=== PATIENT | female | born 1955 | race Caucasian/White ===

== ENCOUNTER 2022-05-24 07:29 | Outpatient (REF) | payer OTHER, SELFPAY ==
--- NOTE | ~2022-05-24 | XR_ITS ---
EXAMINATION: XR BILATERAL KNEE AP STANDING. XR BILATERAL SUNRISE VIEWS CLINICAL INFORMATION: Pain in left knee COMPARISON: None TECHNIQUE: AP bilateral standing view of both knees and sunrise views of the bilateral knees were obtained. FINDINGS: Right knee: Mild medial compartment joint space narrowing. There is lateral greater than medial marginal osteophytosis from the tibia. There is a lobular sclerotic 1.7 cm lesion lateral to the right distal tibia. It is unclear if this arises from the cortex as would be expected for an exostosis. This could represent an intra-articular body. No fracture or dislocation seen. On the sunrise view, there is marked lateral subluxation of the patella with joint space narrowing and a [id number] appearance. Left knee: Moderate to severe medial compartment joint space narrowing. Medial greater than lateral marginal osteophytosis. Mild lateral patellar subluxation with lateral patellofemoral joint space narrowing and osteophytosis. No fracture or dislocation. XR/XR knee LT 1V IMPRESSION: Degenerative changes of the bilateral knees as described above.
--- NOTE | ~2022-05-24 | XR_ITS ---
EXAMINATION: XR BILATERAL KNEE AP STANDING. XR BILATERAL SUNRISE VIEWS CLINICAL INFORMATION: Pain in left knee COMPARISON: None TECHNIQUE: AP bilateral standing view of both knees and sunrise views of the bilateral knees were obtained. FINDINGS: Right knee: Mild medial compartment joint space narrowing. There is lateral greater than medial marginal osteophytosis from the tibia. There is a lobular sclerotic 1.7 cm lesion lateral to the right distal tibia. It is unclear if this arises from the cortex as would be expected for an exostosis. This could represent an intra-articular body. No fracture or dislocation seen. On the sunrise view, there is marked lateral subluxation of the patella with joint space narrowing and a [id number] appearance. Left knee: Moderate to severe medial compartment joint space narrowing. Medial greater than lateral marginal osteophytosis. Mild lateral patellar subluxation with lateral patellofemoral joint space narrowing and osteophytosis. No fracture or dislocation. XR/XR knee standing BI IMPRESSION: Degenerative changes of the bilateral knees as described above.
--- NOTE | ~2022-05-24 | XR_ITS ---
EXAMINATION: XR BILATERAL KNEE AP STANDING. XR BILATERAL SUNRISE VIEWS CLINICAL INFORMATION: Pain in left knee COMPARISON: None TECHNIQUE: AP bilateral standing view of both knees and sunrise views of the bilateral knees were obtained. FINDINGS: Right knee: Mild medial compartment joint space narrowing. There is lateral greater than medial marginal osteophytosis from the tibia. There is a lobular sclerotic 1.7 cm lesion lateral to the right distal tibia. It is unclear if this arises from the cortex as would be expected for an exostosis. This could represent an intra-articular body. No fracture or dislocation seen. On the sunrise view, there is marked lateral subluxation of the patella with joint space narrowing and a [id number] appearance. Left knee: Moderate to severe medial compartment joint space narrowing. Medial greater than lateral marginal osteophytosis. Mild lateral patellar subluxation with lateral patellofemoral joint space narrowing and osteophytosis. No fracture or dislocation. XR/XR knee RT 1V IMPRESSION: Degenerative changes of the bilateral knees as described above.
== END 2022-05-24 07:30 | disposition home or self-care (01) ==
LOC: HO.HOSX 07:29
PROVIDERS: Visit Provider Physician Assistant
DX: M17.0 Bilateral primary osteoarthritis of knee (principal)
CPT/HCPCS: 73560; 73565; 99202

== ENCOUNTER → 2022-07-25 10:07 | Outpatient (BNVA) | payer OTHER, SELFPAY | PROVIDERS: PCP Pediatrics; Visit Provider Orthopaedic Surgery | DX: Z13.89 Encounter for screening for other disorder (principal) ==

== ENCOUNTER 2022-08-03 13:50 | Outpatient (RCR) | payer MEDICARE, SELFPAY | END 2023-06-21 09:14 | disposition home or self-care (01) | LOC: HO.PTWFD 13:50 | PROVIDERS: PCP Pediatrics; Visit Provider Orthopaedic Surgery | DX: M17.0 Bilateral primary osteoarthritis of knee (principal) | CPT/HCPCS: 97161 ==

== ENCOUNTER → 2022-09-06 10:47 | Outpatient (BNVA) | payer OTHER, SELFPAY | PROVIDERS: PCP Pediatrics; Visit Provider Physician Assistant | DX: Z13.89 Encounter for screening for other disorder (principal) ==

== ENCOUNTER 2022-09-11 06:20 | Inpatient (IN) | payer MEDICARE, SELFPAY ==
[2022-09-03 12:06] VITALS: BP 167/83; PULSE 78; RESP 16; O2SAT 96; BMI 31.8
--- NOTE | 2022-09-03 12:34 | P.CONAN_ITS ---
Documented by User: Ro Durán NP 09/10/22 08:34 HPI - Anesthesia Eval Consult details Narrative: 66yo F for Right Knee Replacement Total, 09/11/22 PCP cleared [facility] Active Problems Active Problems: All Active Problems (Updated 08/30/22 @ 15:52 by Fabi Mcadams RN) Osteoarthritis of knees, bilateral (Acute) Osteoarthritis of right knee (Acute) Past Medical History Medical History Depressed High cholesterol Personal history of COVID-19 Postoperative nausea Vapes nicotine containing substance Family History Family history of problems with anesthesia: No Surgical History Surgical History History of left hip replacement Hx of colonoscopy S/P bilateral foot surgery History of Problems with Anesthesia: Yes (PONV) Social History Social History Household Members: Spouse [facility] Are you a primary resident care spec to a significant other at home: No Do you presently have visiting nurse or other home services: No Patient Tobacco Use Status: Former Tobacco user Quit Date: 06/2022 Tobacco use type: Cigarette Cigarettes Per Day: 5 Years Smoked: 32 e-Cigarette/Vaping Use: Currently Using Patient Interested in Nicotine Replacement: No Second Hand Smoke Exposure: No Use of substances other than those prescribed or required for medical reasons: No Substance Use Type Other:: vapes nicotine Have you been hit, kicked, punched, or otherwise hurt by someone within the past year? If so, by whom?: No Do you feel safe in your current relationship?: No Is there a partner from a previous relationship who is making you feel unsafe now?: No Are you made to feel afraid or neglected: No Spiritual Healthcare Practices: no Moravian Healthcare Practices: no Cultural Healthcare Practices: no Are you DNR?: No Advance Directives: No Advance Directives Information Provided: Yes Advance Directives on File: No Do you have thoughts of harming others: None Do you have a plan to hurt others: No Plan Recently lost weight without trying: No Nutrition Risks: No Nutritional Risk Patient : No : No Poor oral hygiene: No Current occupational status: retired Current occupation: rt hand Meds Allergies Allergy/AdvReac Type Severity Reaction Status Date / Time amoxicillin Allergy Mild rash Verified 09/06/22 10:54 Penicillins Allergy Mild Rash Verified 09/06/22 10:54 sulfa drugs Allergy Mild rash Uncoded 09/03/22 12:04 Home Medications Medication Instructions Recorded Confirmed Last Taken Type aripiprazole 2 mg tablet 2 mg PO DAILY 05/24/22 08/30/22 Unknown History atorvastatin 10 mg tablet 10 mg PO DAILY 05/24/22 08/30/22 Unknown History fluoxetine 40 mg capsule 80 mg PO DAILY 08/30/22 08/30/22 Unknown History ibuprofen 200 mg tablet (Advil) 400 mg PO Q6H PRN Pain 08/30/22 08/30/22 Unknown History Exam Exam Date and Time: September 03, 2022 1234 Height,Weight and Vital Signs: Height 5 ft 2 in Weight 78.925 kg Last Vital Signs Pulse 78 09/03/22 12:06 Resp 16 09/03/22 12:06 BP 167/83 H 09/03/22 12:06 Pulse Ox 96 09/03/22 12:06 O2 Del Method Room Air 09/03/22 12:06 Pertinent Lab Results Pertinent Lab Results: CBC and BMP 07/2022 WNL Narrative Narrative: EKG 07/2022 NSR @ 79 Airway Mallampati Class: II TM Dist: >3cm Neck ROM: Full Loose/Missing/Broken Teeth: Yes (4 x broken molars, crowned molars) Heart: RRR Lungs: CTAB Assessment and Plan Assessment Anesthesia Assessment: Anesthesia Plan Discussed, Smoking Cess. Discussed and PAT Visit Final Anesthetic Review Family History of Problems with Anesthesia: No History of Problems with Anesthesia: Yes (PONV) Documented by User: Reinaldo Fernandes MD 09/11/22 15:19 HPI - Anesthesia Eval Consult details Narrative: 66yo F for Right Knee Replacement Total, 09/11/22 Central Obesity , depression , anxiety , OA , Vaps PCP cleared [facility] Past Medical History Medical History Depressed High cholesterol Personal history of COVID-19 Postoperative nausea Vapes nicotine containing substance Functional capacity: uses cane/walker Surgical History Surgical History History of left hip replacement Hx of colonoscopy S/P bilateral foot surgery Social History Social History Household Members: Spouse Housing: Condominium Are you a primary resident care spec to a significant other at home: No Do you presently have visiting nurse or other home services: No Patient Tobacco Use Status: Former Tobacco user Quit Date: 06/2022 Tobacco use type: Cigarette Cigarettes Per Day: 5 Years Smoked: 32 e-Cigarette/Vaping Use: Currently Using Patient Interested in Nicotine Replacement: No Second Hand Smoke Exposure: No Use of substances other than those prescribed or required for medical reasons: No Substance Use Type Other:: vapes nicotine Have you been hit, kicked, punched, or otherwise hurt by someone within the past year? If so, by whom?: No Do you feel safe in your current relationship?: No Is there a partner from a previous relationship who is making you feel unsafe now?: No Are you made to feel afraid or neglected: No Spiritual Healthcare Practices: no Moravian Healthcare Practices: no Cultural Healthcare Practices: no Are you DNR?: No Advance Directives: No Advance Directives Information Provided: Yes Advance Directives on File: No Do you have thoughts of harming others: None Do you have a plan to hurt others: No Plan Recently lost weight without trying: No Nutrition Risks: No Nutritional Risk Patient : No : No Poor oral hygiene: No Current occupational status: retired Current occupation: rt hand Meds Allergies Allergy/AdvReac Type Severity Reaction Status Date / Time amoxicillin Allergy Mild rash Verified 09/06/22 10:54 Penicillins Allergy Mild Rash Verified 09/06/22 10:54 sulfa drugs Allergy Mild rash Uncoded 09/03/22 12:04 Home Medications Medication Instructions Recorded Confirmed Last Taken Type aripiprazole 2 mg tablet 2 mg PO DAILY 05/24/22 08/30/22 Unknown History atorvastatin 10 mg tablet 10 mg PO DAILY 05/24/22 08/30/22 Unknown History fluoxetine 40 mg capsule 80 mg PO DAILY 08/30/22 08/30/22 Unknown History ibuprofen 200 mg tablet (Advil) 400 mg PO Q6H PRN Pain 08/30/22 08/30/22 Unknown History Assessment and Plan Assessment Anesthesia Assessment: Chart Reviewed Final Anesthetic Review NPO: Yes ASA Class: III Final Preanesthetic Review: Meds/Allgs Chart Reviewed, Consent Obtained/Reviewed and Anes Risks/Benef Reviewed Patient Risk: Intermediate Procedure Risk: Intermediate Assessment/Block/Sedation in SS: Assess/Block/Sedation-SS Anesthetic Plan Anesthetic Plan: Spinal, Regional Block and Agree w/ Assess. and Plan Disposition: Standard PACU
[2022-09-03 14:11] LABS: MRSA Nasal PCR NEGATIVE (Negative); SA Nasal PCR NEGATIVE (Negative)
[2022-09-11] VITALS (18 sets, daily range): BP systolic 94–162; BP diastolic 54–89; PULSE 66–110; RESP 15–22; TEMP 36.1–37; O2SAT 91–199
--- NOTE | ~2022-09-11 | XR_ITS ---
EXAMINATION: XR KNEE, RIGHT CLINICAL INFORMATION: Status post total right knee arthroplasty. COMPARISON: None available. TECHNIQUE: Two views of the right knee. FINDINGS: The patient is status post right knee arthroplasty showing good anatomic alignment and no evidence for hardware malfunction. There is no acute fracture. Small to moderate joint effusion. Mild to moderate intra-articular and subcutaneous air. Multiple skin enrico overlie the anterior soft tissues. XR/XR knee RT 2V IMPRESSION: 1. Postsurgical changes. No hardware abnormality. No acute fracture.
[2022-09-11 06:54] LABS: Hematocrit 36.4 % (37.0-47.0); Hemoglobin 12.2 g/dl (12.0-16.0)
[2022-09-11] MEDS: Lactated Ringers 1,000 ML 100 ML IVCONT ×3 (07:00→20:58)
[2022-09-11] MEDS: vancomycin HCL 1,000 MG in 0.9 % Sodium Chloride 250 ML 270 MG IV ×2 (07:01→18:31)
--- NOTE | 2022-09-11 07:29 | MHC.SHP ---
Pre-Procedural Eval Section A Date of Service: 09/11/22 The patient is an INPATIENT: No Changes since office visit: No Cold of Flu in the past 2 weeks, No New Medical Problems, No Changes in Medication and No Patient answered all questions The History & Physical has been completed within 30 days and I have reviewed it.: Yes Section B Chief Complaint: RT TKA Allergies: Allergies Allergy/AdvReac Type Severity Reaction Status Date / Time amoxicillin Allergy Mild rash Verified 09/06/22 10:54 Penicillins Allergy Mild Rash Verified 09/06/22 10:54 sulfa drugs Allergy Mild rash Uncoded 09/03/22 12:04 Plan I have reviewed the history and physical and performed a pertinent physical examination on my patient. No changes have occurred unless specified. Time Spent With Patient Time: Total time managing care of this patient today ____ minutes.
--- NOTE | 2022-09-11 09:03 | P.BOP_ITS ---
Brief Operative Note Date of Service: 09/11/22 Pre-op diagnosis: Right knee OA Post-op diagnosis: same Procedure: Right TKA Implants: Devin Triathlon press fit cruciate retaining 07/13/10 Surgeon: Aleksander Domínguez MD Anesthesia: regional and spinal Was an Molded Frames Assembler used for this Procedure?: Yes Molded Frames Assembler: Gabi Pickard Estimated blood loss (mL): 150 IV fluids (mL): 800 Pathology: other Condition: stable Disposition: PACU
--- NOTE | 2022-09-11 09:10 | P.OP_ITS ---
Operative Note Operative Note Date of Service: 09/11/22 Narrative: Date of Service: 09/11/22 Pre-op diagnosis: Right knee OA Post-op diagnosis: same Procedure: Right TKA Implants: Herlong Triathlon press fit cruciate retaining 07/13/10r/32a Surgeon: Aleksander Domínguez MD Anesthesia: regional and spinal Was an Tacking Machine Operator used for this Procedure?: Yes Tacking Machine Operator: Gabi Pickard Estimated blood loss (mL): 150 IV fluids (mL): 800 Pathology: other Condition: stable Disposition: PACU Procedure in detail: The patient was brought to the operating room and prepped and draped in standard sterile fashion. A time-out was called to identify proper site proper procedure proper surgeon and IV antibiotics were administered. 1 g of IV tranexamic acid was administered. I began by making a midline incision to the retinaculum and performed a medial parapatellar arthrotomy. The patella was translated laterally and the knee was flexed up. There was medial and anterior compartment eburnation . I performed al medial peel and resected the infrapatellar fat pad. Champaign's line was then used to drill my intramedullary femoral guide and my distal femur cut of 10 mm was made in 5 degrees of valgus while protecting the soft tissues. I then measured a # 3 femur and placed my cutting guide in 3deg or ER and made my anterior posterior and chamfer cuts protecting the soft tissues at all times. Once I was satisfied with my cuts I turned my attention to the tibia. I removed the meniscus medially and laterally and , using an external cutting guide, in line with the tibial crest and the third ray, I made my distal tibial cut in 3 deg slope of while protecting the PCL the posterior soft tissues at all times. An extension block was used to confirm appropriate amount of bony resection. I then sized a #3 tibia and once I was satisfied that there was complete tibial coverage I placed my trial and with the trial femur in place took the knee through range of motion. I was satisfied with the extension and flexion as well as the stability and balance at 0, 30 and 90 degrees. I then turned my attention to the patella where I removed 1 cm from the undersurface of the patella and then trialed a 32a patellar button. Again the knee was taken through range of motion I was satisfied with the tracking. I then returned to the femur and drilled my femoral lug holes and prepared the tibia. A femoral bone plug was placed and the knee was irrigated copiously. I then press fit the patella, tibia and femur in standard fashion. I trialed different inserts until I selected a #11 insert. The final insert was placed and a 3 minutes iodine soak with local TXA was performed. A Werewolf cautery wand was used to maintain hemostasis over the capsule and meniscal beds, the gutters and peripatellar soft tissues. The knee was then closed with a running Quill suture, a 3 0 Vicryl and enrico o n the skin. Patient was then placed in sterile dressing and brought to recovery room in stable condition there were no known complications.
[2022-09-11] MEDS: oxyCODONE HCl Immed Release 5 MG TABLET PO ×3 (10:33→21:00)
[2022-09-11] MEDS: Acetaminophen 325 MG TABLET 650 MG PO ×2 (10:34→18:09)
[2022-09-11] MEDS: HYDROmorphone HCl 0.5 MG/0.5 ML SYRINGE 0.25 MG IVPUSH ×3 (11:02→12:58)
--- NOTE | 2022-09-11 16:30 | P.CONHOSP_ITS ---
History of Present Illness Data of Consult Service Date: 09/11/22 Requesting physician: Aleksander Domínguez Primary Care Provider: Tio Barroso MD HPI 66-year-old woman with a history depression, hyperlipidemia. status post right total knee arthroplasty. Surgery was unremarkable. moderate amount pain reported but able to get oob to the bathroom with her walker. No other acute medical issues. Her vital signs are stable. Review of Systems Review of Systems: Denies any recent fever chills or decrease in appetite respiratory denies any shortness of breath coverage production cardiovascular denies chest pain gastrointestinal denies any dysphagia abdominal pain nausea vomiting or diarrhea genitourinary denies any dysuria frequency or hematuria musculoskeletal denies any joint pain or swelling neuropsych denies any weakness or seizures all other systems reviewed are negative [facility] Medical History Depressed High cholesterol Personal history of COVID-19 Postoperative nausea Vapes nicotine containing substance Functional capacity: uses cane/walker Surgical History History of left hip replacement Hx of colonoscopy S/P bilateral foot surgery Social History Household Members: Spouse Housing: Condominium Are you a primary patient care coordinator to a significant other at home: No Do you presently have visiting nurse or other home services: No Patient Tobacco Use Status: Former Tobacco user Quit Date: 06/2022 Tobacco use type: Cigarette Cigarettes Per Day: 5 Years Smoked: 32 e-Cigarette/Vaping Use: Currently Using Patient Interested in Nicotine Replacement: No Second Hand Smoke Exposure: No Use of substances other than those prescribed or required for medical reasons: No Substance Use Type Other:: vapes nicotine Have you been hit, kicked, punched, or otherwise hurt by someone within the past year? If so, by whom?: No Do you feel safe in your current relationship?: No Is there a partner from a previous relationship who is making you feel unsafe now?: No Are you made to feel afraid or neglected: No Spiritual Healthcare Practices: no Restoration Healthcare Practices: no Cultural Healthcare Practices: no Are you DNR?: No Advance Directives: No Advance Directives Information Provided: Yes Advance Directives on File: No Do you have thoughts of harming others: None Do you have a plan to hurt others: No Plan Recently lost weight without trying: No Nutrition Risks: No Nutritional Risk Patient : No : No Poor oral hygiene: No Current occupational status: retired Current occupation: rt hand Meds Allergies Allergy/AdvReac Type Severity Reaction Status Date / Time amoxicillin Allergy Mild rash Verified 09/06/22 10:54 Penicillins Allergy Mild Rash Verified 09/06/22 10:54 sulfa drugs Allergy Mild rash Uncoded 09/03/22 12:04 Active Medications: Current Medications Acetaminophen (Acetaminophen 325 Mg Tablet) 650 mg PO Q6H PRN PRN Reason: Pain, Mild (Pain Scale 1-3) Last Admin: 09/11/22 10:34 Dose: 650 mg Aripiprazole (Aripiprazole 2 Mg Tablet) 2 mg PO DAILY [facility] Aspirin (Aspirin 325 Mg Tablet) 325 mg PO BID [facility] Celecoxib (Celecoxib 200 Mg Capsule) 200 mg PO BID [facility] Docusate Sodium (Docusate Sodium 100 Mg Capsule) 100 mg PO BID [facility] Fentanyl (Fentanyl Citrate/Pf 100 Mcg/2 Ml Vial) 25 mcg IVPUSH Q5M PRN; Protocol PRN Reason: Pain, Moderate(Pain Scale 4-7) Fluoxetine HCl (Fluoxetine Hcl 20 Mg Capsule) 80 mg PO DAILY [facility] Hydromorphone HCl (Hydromorphone Hcl 0.5 Mg/0.5 Ml Syringe) 0.25 mg IVPUSH Q5M PRN; Protocol PRN Reason: Pain, Severe (Pain Scale 8-10) Last Admin: 09/11/22 11:14 Dose: 0.25 mg Hydromorphone HCl (Hydromorphone Hcl 0.5 Mg/0.5 Ml Syringe) 0.25 mg IVPUSH Q4H PRN; Protocol PRN Reason: Pain, Severe (Pain Scale 8-10) Last Admin: 09/11/22 12:58 Dose: 0.25 mg Promethazine HCl 6.25 mg/ (Sodium Chloride) 50.25 mls @ 201 mls/hr IV ONCE PRN PRN Reason: Nausea and Vomiting Lactated Ringer's (Lr) 1,000 mls @ 100 mls/hr IVCONT .Q10H [facility] Stop: 09/12/22 09:14 Last Admin: 09/11/22 10:51 Dose: 100 mls/hr Vancomycin HCl 1,000 mg/ (Sodium Chloride) 270 mls @ 270 mls/hr IV DAILY@1900 ONE Stop: 09/11/22 19:59 Ondansetron HCl (Ondansetron Hcl 4 Mg/2 Ml Vial) 4 mg IVPUSH Q8H PRN PRN Reason: Nausea and Vomiting Oxycodone HCl (Oxycodone Hcl Immed Release 5 Mg Tablet) 5 mg PO Q4H PRN PRN Reason: Pain, Moderate(Pain Scale 4-7) Last Admin: 09/11/22 15:27 Dose: 5 mg Oxycodone HCl (Oxycodone Hcl Er 10 Mg Tab.Er.12h) 10 mg PO BID [facility] Sodium Chloride (0.9 % Sodium Chloride Flush 3 Ml Syringe) 3 ml IVFLUSH QSHIFT [facility] Last Admin: 09/11/22 15:30 Dose: Not Given Home Medications Medication Instructions Recorded Confirmed Last Taken Type aripiprazole 2 mg tablet 2 mg PO DAILY 05/24/22 08/30/22 Unknown History atorvastatin 10 mg tablet 10 mg PO DAILY 05/24/22 08/30/22 Unknown History fluoxetine 40 mg capsule 80 mg PO DAILY 08/30/22 08/30/22 Unknown History ibuprofen 200 mg tablet (Advil) 400 mg PO Q6H PRN Pain 08/30/22 08/30/22 Unknown History Physical Exam Vital Signs and Narrative: Vital Signs: Last Vital Signs Temp 97.7 F 09/11/22 12:51 Pulse 84 09/11/22 12:51 Resp 18 09/11/22 12:51 BP 142/78 H 09/11/22 12:51 Pulse Ox 96 09/11/22 12:51 O2 Del Method Room Air 09/11/22 12:51 BMI result Body Mass Index 31.8 Appearing in no acute distress head is normocephalic atraumatic eyes pupils are PERRLA sclera is anicteric mouth throat mucous membranes are intact and moist neck is supple no lymphadenopathy, no JVD noted lung sounds are clear to auscultation heart regular rate rhythm, clear S1, S2 positive bowel sounds, abdomen is soft, nontender neuro patient is alert x3, no focal deficits Surgical dressing intact, surgical no visualized Results Labs 09/11/22 06:40 Imaging Radiologist's Impressions: Impressions Knee X-Ray 09/11/22 10:05 IMPRESSION: 1. Postsurgical changes. No hardware abnormality. No acute fracture. Assessment and Plan (1) Osteoarthritis of knees, bilateral: Status: Acute Plan 66-year-old woman status post total knee arthroplasty Right total knee arthroplasty Management as per surgical team Pain management Mental health Continue home medications DVT prophylaxis with full-dose aspirin Medical consultation completed. Will sign off. Time Spent With Patient Time: Total time managing care of this patient today ____ minutes.
[2022-09-11] MEDS: ondansetron HCL 4 MG/2 ML VIAL IVPUSH (18:08)
[2022-09-11] MEDS: Celecoxib 200 MG CAPSULE PO (20:59)
[2022-09-11] MEDS: oxyCODONE HCl ER 10 MG TAB.ER.12H PO (20:59)
[2022-09-11] MEDS: Docusate Sodium 100 MG CAPSULE PO (20:59)
[2022-09-12] VITALS: BP 129/69; PULSE 100; RESP 18; TEMP 36.3; O2SAT 95
[2022-09-12 02:59] VITALS: BP 128/69; PULSE 105; RESP 16; TEMP 36.9; O2SAT 90
[2022-09-12] MEDS: Acetaminophen 325 MG TABLET 650 MG PO ×2 (06:15→16:10)
[2022-09-12] MEDS: Lactated Ringers 1,000 ML 100 ML IVCONT (06:23)
[2022-09-12] MEDS: oxyCODONE HCl Immed Release 5 MG TABLET PO ×3 (06:38→20:30)
--- NOTE | 2022-09-12 07:00 | HO.POSTANES ---
Post Anesthesia Evaluation Post Anesthesia Evaluation Vital Signs: Vital Signs Temp Pulse Resp BP Pulse Ox O2 Del Method 09/12/22 02:59 98.5 F 105 H 16 128/69 90 L Room Air 09/12/22 00:00 97.3 F 100 18 129/69 95 Room Air 09/11/22 19:31 98.6 F 110 H 18 162/77 H 91 L Room Air Anesthesia: Spinal and Nerve Block Mental Status: Awake Pain Control: Satisfactory Nausea/Vomiting: None Hydration: Adequate Anesthesia-Related Issues: No Anes. Related Issues
[2022-09-12 07:16] VITALS: BP 131/66; PULSE 98; RESP 20; TEMP 36.2; O2SAT 91
--- NOTE | 2022-09-12 07:30 | PM.PNORT ---
Subjective Subjective Date of Service: 09/12/22 Interval history: POD1 s/p RTKA. Patient is resting comfortably in bed. Pain is managed. No overnight events. No additional complaints. Physical Exam Vital Signs: Vital Signs: Last Vital Signs Temp 97.1 F 09/12/22 07:16 Pulse 98 09/12/22 07:16 Resp 20 09/12/22 07:16 BP 131/66 09/12/22 07:16 Pulse Ox 91 L 09/12/22 07:16 O2 Del Method Room Air 09/12/22 07:16 BMI result Body Mass Index 31.8 Const: General: cooperative, healthy appearing and no acute distress Resp: Effort & Inspection: normal respiratory effort and able to speak in complete sentences Cardio: Rate: regular rate Peripheral pulses: Peripheral pulses 2+ throughout GI: Palpation (GI): Soft to palpation Skin: Lesions: no lesions Rashes: no rashes Extrem: Other: Rt knee Aquacel is c/d/i. Able to dorsi/plantar flex. NVI. Procedures Date of Service Date of Service: 09/12/22 Progress Note: A&P Assessment and plan (1) S/P total knee arthroplasty: Status: Acute Plan Continue pain mgmnt - Patient declined Dilaudid due to nausea. Begin ASA for dvt ppx begin PT for RTKA Dispo planning-Pending PT eval, pain mgmnt Time Spent With Patient Time: Total time managing care of this patient today ____ minutes. Quality Stroke Does the patient have a stroke diagnosis?: No VTE Prior VTE?: No VTE Risk Level:: Medical - moderate - high VTE Device Contraindication: N/A - Device Ordered VTE Drug Contraindication: N/A - Med Ordered
[2022-09-12] MEDS: oxyCODONE HCl ER 10 MG TAB.ER.12H PO ×2 (08:21→20:31)
[2022-09-12] MEDS: Docusate Sodium 100 MG CAPSULE PO ×2 (08:22→20:30)
[2022-09-12] MEDS: Aspirin 325 MG TABLET PO ×2 (08:22→20:29)
[2022-09-12] MEDS: FLUoxetine HCl 20 MG CAPSULE 80 MG PO (08:22)
[2022-09-12] MEDS: ARIPiprazole 2 MG TABLET PO (08:22)
[2022-09-12] MEDS: Celecoxib 200 MG CAPSULE PO ×2 (08:22→20:30)
[2022-09-12 08:43] LABS: MANUAL DIFF FLAG NO
[2022-09-12 08:55] LABS: Basophils Percent Auto 0.3 % (0-2); Eosinophils Absolute Auto 0.1 X10*3/uL (0.0-0.4); Hematocrit 29.5 % (37.0-47.0); Hemoglobin 9.9 g/dl (12.0-16.0); Imm Gran Abs Auto 0.04 X10*3/uL (0.00-0.03); Imm Gran Pct Auto 0.3 % (0.0-0.4); Lymphocytes Absolute Auto 0.9 X10*3/uL (1.2-4.9); Lymphocytes Percent Auto 7.7 % (20-40); Mean Corpuscular HGB Conc 33.6 g/dl (31.0-35.0); Mean Corpuscular Hemoglobin 30.9 pg (27.0-33.0); Mean Corpuscular Volume 92.2 fL (80.0-98.0); Mean Platelet Volume 10.3 fL (9.4-12.3); Monocytes Absolute Auto 0.7 X10*3/uL (0.1-1.2); Monocytes Percent Auto 6.1 % (2-11); Neutrophils Absolute Auto 9.7 x10*3/uL (2.0-8.3); Neutrophils Percent Auto 84.6 % (45-73); Platelet Count 233 X10*3/uL (160-400); Red Cell Distribution Width 12.3 % (11.0-16.0); White Blood Count 11.4 X10*3/uL (4.8-10.8)
[2022-09-12 09:06] LABS: Anion Gap 11 (12-20); Blood Urea Nitrogen 18 mg/dL (9-16); Calcium 8.8 mg/dL (8.4-10.2); Carbon Dioxide 24 mmol/L (22-29); Chloride 106 mmol/L (96-108); Creatinine Clr Calc Pharmacy 74.8; Estimated Glomerular Filt Rate > 60; Glucose Fasting 123 mg/dL (60-99); Potassium 3.6 mmol/L (3.3-5.1); Sodium 137 mmol/L (135-145)
[2022-09-12 11:34] VITALS: BP 133/69; PULSE 91; RESP 18; TEMP 36.7; O2SAT 92
--- NOTE | 2022-09-12 12:48 | MHC.CM.PN ---
PATIENT LIVES WITH SPOUSE/HCP (COPY REQUESTED) HAS CANE AND WALKER IN THE HOME. PLAN IS HOME WITH SERVICES ANTICIPATED TOMORROW (09/13/22) REFERRAL TO [facility]. IMM 09/12 IN CHART
[2022-09-12 15:47] VITALS: BP 119/58; PULSE 90; RESP 17; TEMP 36.3; O2SAT 93
[2022-09-12] MEDS: 0.9 % Sodium Chloride Flush 3 ML SYRINGE IVFLUSH (16:05)
[2022-09-12 20:00] VITALS: BP 133/60; PULSE 102; RESP 16; TEMP 37.1; O2SAT 94
[2022-09-13] VITALS: BP 120/57; PULSE 97; RESP 16; TEMP 36; O2SAT 93
[2022-09-13] MEDS: 0.9 % Sodium Chloride Flush 3 ML SYRINGE IVFLUSH ×2 (00:30→07:33)
[2022-09-13 03:30] VITALS: BP 118/63; PULSE 96; RESP 16; TEMP 36; O2SAT 93
[2022-09-13 06:42] LABS: MANUAL DIFF FLAG NO
[2022-09-13 06:54] LABS: Basophils Percent Auto 0.3 % (0-2); Eosinophils Absolute Auto 0.4 X10*3/uL (0.0-0.4); Eosinophils Percent Auto 4.1 % (0-4); Hematocrit 27.7 % (37.0-47.0); Hemoglobin 9.3 g/dl (12.0-16.0); Imm Gran Abs Auto 0.03 X10*3/uL (0.00-0.03); Imm Gran Pct Auto 0.3 % (0.0-0.4); Lymphocytes Absolute Auto 1.1 X10*3/uL (1.2-4.9); Lymphocytes Percent Auto 11.3 % (20-40); Mean Corpuscular HGB Conc 33.6 g/dl (31.0-35.0); Mean Corpuscular Volume 92.3 fL (80.0-98.0); Mean Platelet Volume 10.7 fL (9.4-12.3); Monocytes Absolute Auto 0.7 X10*3/uL (0.1-1.2); Monocytes Percent Auto 7.7 % (2-11); Neutrophils Absolute Auto 7.2 x10*3/uL (2.0-8.3); Neutrophils Percent Auto 76.3 % (45-73); Platelet Count 214 X10*3/uL (160-400); Red Cell Distribution Width 12.6 % (11.0-16.0); White Blood Count 9.4 X10*3/uL (4.8-10.8)
[2022-09-13 07:02] LABS: Anion Gap 15 (12-20); Blood Urea Nitrogen 21 mg/dL (9-16); Calcium 8.8 mg/dL (8.4-10.2); Carbon Dioxide 24 mmol/L (22-29); Chloride 106 mmol/L (96-108); Creatinine Clr Calc Pharmacy 71.7; Estimated Glomerular Filt Rate > 60; Glucose Fasting 91 mg/dL (60-99); Potassium 3.9 mmol/L (3.3-5.1); Sodium 141 mmol/L (135-145)
[2022-09-13] MEDS: Aspirin 325 MG TABLET PO (07:31)
[2022-09-13] MEDS: oxyCODONE HCl ER 10 MG TAB.ER.12H PO (07:32)
[2022-09-13] MEDS: ARIPiprazole 2 MG TABLET PO (07:32)
[2022-09-13] MEDS: FLUoxetine HCl 20 MG CAPSULE 80 MG PO (07:32)
[2022-09-13] MEDS: Celecoxib 200 MG CAPSULE PO (07:32)
[2022-09-13] MEDS: Docusate Sodium 100 MG CAPSULE PO (07:32)
[2022-09-13 08:00] VITALS: PULSE 100; RESP 20; TEMP 36.1; O2SAT 95
--- NOTE | 2022-09-13 10:48 | W.MHC.F2F ---
Service Date Service Date: 09/13/22 Encounter Date of encounter: 09/13/22 Reasons for Services Signs and symptoms assessed: s/p RTKA. Pt. is considered homebound due to recent surgery. Unable to drive, poor balance, poor gait mechanics. Reason for physical therapy: home safety and mobility, therapeutic exercises, restore joint function, gait/transfer training, assess need for DME and ADL training Homebound: Leaving the home is medically contraindicated at this time without the asist of a device and/or another person due th the listed conditions above and below. Reason homebound: unsteady gait / fall risk, leg weakness, pain with ambulation, pain with transfers and unable to drive Certification: Based on the above findings, I certify that this patient is confined to the home and needs intermittent half-way care, physical therapy and/or speech therapy, or continues to need occupational therapy. The patient is under my care, and I have initiated the establishment of the plan of care. The patient will be followed by a physician who will periodically review the plan of care. Time Spent With Patient Time: Total time managing care of this patient today ____ minutes.
--- NOTE | 2022-09-13 10:50 | MHC.CM.PN ---
PLAN IS HOME TODAY WITH NEW [facility] FOR HOME P.T. 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
--- NOTE | 2022-09-13 11:00 | P.DS_ITS ---
DS: Providers Provider Date of Service: 09/13/22 Date of admission: 09/11/22 06:20 Primary care physician: Tio Barroso MD Consults: 09/11/22 12:39 Consult to Hospitalist Routine Comment: Consulting Provider: Hospitalist Reason For Exam: post op medical management DS: Diagnosis Discharge Diagnosis (1) S/P total knee arthroplasty: Status: Acute DS: Summary Hospital Course Hospital Course: The patient underwent a successful right total knee arthroplasty on 09/11/22, was transferred to PACU and then to the floor to recover. During their stay, their vitals were stable, afebrile at 97.0. Labs were unremarkable, H/H 9.3/27.7. POD 1 she was started on Aspirin 325mg tabs po bid for DVT ppx, they also received Physical Therapy services twice a day. Physical therapy should include gait training, ROM to tolerance and quad strength. She is WBAT. Prior to discharge, his dressing was changed, incision clean dry and intact, new Aquacel dressing applied. The Aquacel dressing shoulder remain intact and dry at all times. Any concerns with the dressing, please contact orthopedic office. No showering. The plan is to be discharged home with [facility] services. Time Spent with Patient Time attestation: Total time managing care of this patient today ____ minutes. Discharge coordination time: Less than 30 minutes Quality: Safe Use of Opioids Does Pt have an Active Cancer Diagnosis on the Problem List?: No Quality: Stroke Does the patient have a stroke diagnosis?: No Physical Exam Vital Signs: Vital Signs: Last Vital Signs Temp 97.0 F 09/13/22 08:00 Pulse 100 09/13/22 08:00 Resp 20 09/13/22 08:00 BP 118/63 09/13/22 03:30 Pulse Ox 95 09/13/22 08:00 O2 Del Method Room Air 09/13/22 08:00 BMI result Body Mass Index 31.8 Const: General: cooperative, healthy appearing and no acute distress Resp: Effort & Inspection: normal respiratory effort and able to speak in complete sentences Cardio: Rate: regular rate Peripheral pulses: Peripheral pulses 2+ throughout GI: Palpation (GI): Soft to palpation Skin: Lesions: no lesions Rashes: no rashes Extrem: Other: Rt knee Aquacel is c/d/i. Able to dorsi/plantar flex. NVI. DS: Data Data Completed and Pending Pending studies at discharge: Pending at discharge 09/11/22 08:40 Surgical [PTH] Routine Labs on day of discharge: Laboratory Results - last 24 hr 09/13/22 09/13/22 05:12 05:12 WBC 9.4 RBC 3.00 L Hgb 9.3 L Hct 27.7 L MCV 92.3 MCH 31.0 MCHC 33.6 RDW 12.6 Plt Count 214 MPV 10.7 Immature Gran % (Auto) 0.3 Neut % (Auto) 76.3 H Lymph % (Auto) 11.3 L [place] % (Auto) 7.7 Eos % (Auto) 4.1 H Baso % (Auto) 0.3 Lymph # (Auto) 1.1 L [place] # (Auto) 0.7 Eos # (Auto) 0.4 Baso # (Auto) 0.0 Abs Immat Gran (auto) 0.03 Absolute Neuts (auto) 7.2 Absolute Nucleated RBC 0.000 Nucleated RBC % (auto) 0.0 Sodium 141 Potassium 3.9 Chloride 106 Carbon Dioxide 24 Anion Gap 15 BUN 21 H Creatinine 0.74 Estim Creat Clear Calc 71.7 Estimated GFR > 60 Fasting Glucose 91 Calcium 8.8 Discharge Plan Discharge Anticipated Discharge Date/Time: 09/13/22 09:16 Patient Disposition: Home Health Service Discharge Diagnosis: RT TKA Referrals: Jo GARCIA [Outside] - 1 Week Gabi Pickard PA-C [Physician [employer]] - 2 Weeks (09/27/22 1:30 [facility] [place] Orthopedic Surgeons Gabi Pickard PA-C) Discharge Medications: New celecoxib 200 mg Capsule 200 mg PO BID 30 Days Qty: 60 0RF acetaminophen 325 mg Tablet 650 mg PO Q6H PRN (Reason: Pain, Mild (Pain Scale 1-3)) 30 Days Qty: 240 0RF aspirin 325 mg Tablet 325 mg PO BID 42 Days Qty: 84 0RF oxycodone 5 mg Tablet 5 mg PO Q4H PRN (Reason: Pain, Moderate(Pain Scale 4-6)) 7 Days Qty: 42 0RF Rx Instructions: Partial Fill upon patient request. Continued fluoxetine 40 mg capsule 80 mg PO DAILY atorvastatin 10 mg tablet 10 mg PO DAILY aripiprazole 2 mg tablet 2 mg PO DAILY (SARAH) walker Misc See Rx Instructions .MEDSUPPLY Qty: 1 0RF Rx Instructions: Folding Front wheeled walker Discontinued ibuprofen [Advil] 200 mg Tablet 400 mg PO Q6H PRN (Reason: Pain) Discharge Orders: Discharge Order (Routine); Ordered 09/13/22 Ordered By: Gabi Pickard Diet: Regular diet Activity on Discharge: Use cane or walker Stand Alone Forms: Patient Portal Discharge page Care Plan Goals: Restore function of joint Health Concerns: none Plan of Treatment: Physical Therapy Pain management DVT prophylaxis Assessment: Physical Therapy for Total knee arthroplasty: WBAT, gait training, ROM 0-12, quad strength * Limit stair climbing * No showering, no tub bath-keep dressing clean, dry and intact * No driving x6 weeks * Continue Aspirin twice a day x 6 weeks * Follow up with [facility] Orthopedics in 2 weeks: 231:30 [facility] [place] Orthopedic SurgeonsGabi Pickard PA-C * --you will also have your first out patient PT eval on the day of your post op appt-so please plan on being in the office that day for an extended period of time.
== END 2022-09-13 11:06 | disposition home health service (06) | DRG 470 ==
LOC: HO.SSSA 06:21 → HO.S3 11:42
PROVIDERS: Physician Assistant; Admitting Provider Orthopaedic Surgery; PCP Pediatrics; Visit Provider Orthopaedic Surgery
PROC: 0SRC0JA Replacement of Right Knee Joint with Synthetic Substitute, Uncemented, Open Approach (ICD-10-PCS; CPT 27447; principal; 2022-09-11 07:30)
DX: M17.11 Unilateral primary osteoarthritis, right knee (principal); Z88.0 Allergy status to penicillin; G89.18 Other acute postprocedural pain; Z88.2 Allergy status to sulfonamides; Z87.891 Personal history of nicotine dependence; Z79.82 Long term (current) use of aspirin; Z79.899 Other long term (current) drug therapy
CPT/HCPCS: 36415; 73560; 80048; 85014; 85018; 85025; 86850; 86900; 86901; 87640; 87641; 88305; 88311; 97110; 97116; 97162; 97530; C1776; J1170; J2250; J2370; J2405; J3370

== ENCOUNTER → 2022-09-27 13:26 | Outpatient (BNVA) | payer MEDICARE, SELFPAY | PROVIDERS: PCP Pediatrics; Visit Provider Physician Assistant | DX: Z47.1 Aftercare following joint replacement surgery (principal); Z96.659 Presence of unspecified artificial knee joint | CPT/HCPCS: 99212 ==

== ENCOUNTER 2022-10-04 09:35 | Outpatient (REF) | payer MEDICARE, SELFPAY ==
--- NOTE | ~2022-10-04 | XR_ITS ---
EXAMINATION: Knee x-ray CLINICAL INFORMATION: Pain COMPARISON: Previous x-ray September 2022 TECHNIQUE: Standing AP view of both knees and lateral and sunrise view of the right knee FINDINGS: Right: There is a 3 component total knee replacement in expected position. No fracture, dislocation or x-ray evidence of loosening. Joint effusion. Soft tissue swelling over the anterior knee. Standing AP view of the left knee demonstrates mild varus angulation and arthritis at the medial femoral tibial joint. XR/XR knee RT 2V IMPRESSION: Right knee replacement in expected position. Anterior soft tissue swelling and joint effusion.
--- NOTE | ~2022-10-04 | XR_ITS ---
EXAMINATION: Knee x-ray CLINICAL INFORMATION: Pain COMPARISON: Previous x-ray September 2022 TECHNIQUE: Standing AP view of both knees and lateral and sunrise view of the right knee FINDINGS: Right: There is a 3 component total knee replacement in expected position. No fracture, dislocation or x-ray evidence of loosening. Joint effusion. Soft tissue swelling over the anterior knee. Standing AP view of the left knee demonstrates mild varus angulation and arthritis at the medial femoral tibial joint. XR/XR knee standing BI IMPRESSION: Right knee replacement in expected position. Anterior soft tissue swelling and joint effusion.
== END 2022-10-04 09:36 | disposition home or self-care (01) ==
LOC: HO.HOSX 09:35
PROVIDERS: Visit Provider Physician Assistant
DX: Z47.1 Aftercare following joint replacement surgery (principal); Z96.651 Presence of right artificial knee joint
CPT/HCPCS: 73560; 73565; 99212

== ENCOUNTER → 2022-10-11 11:28 | Outpatient (BNVA) | payer MEDICARE, SELFPAY | PROVIDERS: PCP Pediatrics; Visit Provider Orthopaedic Surgery | DX: M17.0 Bilateral primary osteoarthritis of knee (principal); Z96.651 Presence of right artificial knee joint; Z96.642 Presence of left artificial hip joint | CPT/HCPCS: 99212 ==

== ENCOUNTER 2022-10-17 06:02 | Day surgery (SDC) | payer MEDICARE, SELFPAY ==
--- NOTE | 2022-10-16 09:29 | HO.ANESPROP2 ---
Documented by User: Ro Durán NP 10/16/22 09:33 HPI - Anesthesia Eval Consult details Narrative: 66yo F for Right Knee exploration,poss Quadricep Tendon Repair s/p R TKA 09/11/22 with spinal/block PMFSH Active Problems Active Problems: All Active Problems (Updated 09/14/22 @ 00:03 by Jamila Bravo) S/P total knee arthroplasty (Acute) Osteoarthritis of right knee (Acute) Past Medical History Medical History Depressed High cholesterol Osteoarthritis of knees, bilateral Personal history of COVID-19 Postoperative nausea Vapes nicotine containing substance Family History Family history of problems with anesthesia: No Surgical History Surgical History History of left hip replacement Hx of colonoscopy S/P bilateral foot surgery History of Problems with Anesthesia: Yes (PONV) Social History Social History Household Members: Spouse Housing: [facility] Are you a primary vp care management to a significant other at home: No Do you presently have visiting nurse or other home services: No Patient Tobacco Use Status: Former Tobacco user Quit Date: 06/2022 Tobacco use type: Cigarette Cigarettes Per Day: 5 Years Smoked: 32 e-Cigarette/Vaping Use: Currently Using Second Hand Smoke Exposure: No Use of substances other than those prescribed or required for medical reasons: No Are you DNR?: No Advance Directives: No Advance Directives Information Provided: Yes Recently lost weight without trying: No Nutrition Risks: No Nutritional Risk service: No Current occupational status: retired Current occupation: rt hand Meds Allergies Allergy/AdvReac Type Severity Reaction Status Date / Time amoxicillin Allergy Mild rash Verified 10/04/22 11:04 Penicillins Allergy Mild Rash Verified 10/04/22 11:04 sulfa drugs Allergy Mild rash Uncoded 09/27/22 13:35 Home Medications Medication Instructions Recorded Confirmed Last Taken Type aripiprazole 2 mg tablet 2 mg PO DAILY 05/24/22 08/30/22 Unknown History atorvastatin 10 mg tablet 10 mg PO DAILY 05/24/22 08/30/22 Unknown History fluoxetine 40 mg capsule 80 mg PO DAILY 08/30/22 08/30/22 Unknown History Exam Exam Date and Time: October 16, 2022 0929 Pertinent Lab Results Pertinent Lab Results: Laboratory Tests 09/13/22 09/13/22 05:12 05:12 WBC 9.4 Hgb 9.3 L Hct 27.7 L Plt Count 214 Sodium 141 Potassium 3.9 Chloride 106 Carbon Dioxide 24 BUN 21 H Creatinine 0.74 Narrative Narrative: EKG 07/2022 NSR @ 79 Assessment and Plan Assessment Anesthesia Assessment: Chart Reviewed Final Anesthetic Review Family History of Problems with Anesthesia: No History of Problems with Anesthesia: Yes (PONV) Documented by User: Kiana Turcios MD 10/17/22 07:55 PMFSH Past Medical History Medical History Depressed High cholesterol Osteoarthritis of knees, bilateral Personal history of COVID-19 Postoperative nausea Vapes nicotine containing substance Surgical History Surgical History History of left hip replacement Hx of colonoscopy S/P bilateral foot surgery Social History Social History Household Members: Spouse [facility] Are you a primary vp care management to a significant other at home: No Do you presently have visiting nurse or other home services: No Patient Tobacco Use Status: Former Tobacco user Quit Date: 06/2022 Tobacco use type: Cigarette Cigarettes Per Day: 5 Years Smoked: 32 e-Cigarette/Vaping Use: Currently Using Second Hand Smoke Exposure: No Use of substances other than those prescribed or required for medical reasons: No Are you DNR?: No Advance Directives: No Advance Directives Information Provided: Yes Recently lost weight without trying: No Nutrition Risks: No Nutritional Risk service: No Current occupational status: retired Current occupation: rt hand Meds Allergies Allergy/AdvReac Type Severity Reaction Status Date / Time amoxicillin Allergy Mild rash Verified 10/04/22 11:04 Penicillins Allergy Mild Rash Verified 10/04/22 11:04 sulfa drugs Allergy Mild rash Uncoded 09/27/22 13:35 Home Medications Medication Instructions Recorded Confirmed Last Taken Type aripiprazole 2 mg tablet 2 mg PO DAILY 05/24/22 08/30/22 Unknown History atorvastatin 10 mg tablet 10 mg PO DAILY 05/24/22 08/30/22 Unknown History fluoxetine 40 mg capsule 80 mg PO DAILY 08/30/22 08/30/22 Unknown History Exam Airway Mallampati Class: II TM Dist: <=3cm Neck ROM: Full Heart: rrr Lungs: cta Assessment and Plan Assessment Anesthesia Assessment: Anesthesia Plan Discussed Final Anesthetic Review NPO: Yes ASA Class: II Final Preanesthetic Review: No Changes in Pt Med Stat, Meds/Allgs Chart Reviewed and Anes Risks/Benef Reviewed Patient Risk: Low Procedure Risk: Low Anesthetic Plan Anesthetic Plan: GA Disposition: Standard PACU
[2022-10-17] VITALS (10 sets, daily range): BP systolic 119–153; BP diastolic 65–81; PULSE 81–100; RESP 16–18; TEMP 36.1–36.4; O2SAT 97–100; BMI 31.1
[2022-10-17] MEDS: Scopolamine 1.5 MG PATCH.TD.3 TRANSDERMA (06:19)
[2022-10-17] MEDS: Lactated Ringers 1,000 ML 100 ML IVCONT (06:36)
--- NOTE | 2022-10-17 08:46 | P.BOP_ITS ---
Brief Operative Note Date of Service: 10/17/22 Pre-op diagnosis: Quad rupture Post-op diagnosis: other (same) Procedure: Quad repair Implants: none Surgeon: Aleksander Domínguez MD Anesthesia: GETA and regional Was an Paint Spray Inspector used for this Procedure?: Yes Paint Spray Inspector: Neha Sanchez Estimated blood loss (mL): 20 Tourniquet time (min): 30 IV fluids (mL): 750 Pathology: none sent Condition: stable Disposition: PACU
[2022-10-17] MEDS: ondansetron HCL 4 MG/2 ML VIAL IVPUSH (09:42)
[2022-10-17] MEDS: oxyCODONE HCl Immed Release 5 MG TABLET PO (09:42)
--- NOTE | 2022-10-17 12:53 | W.PM.OPN ---
Operative Note Operative Note Date of Service: 10/17/22 Narrative: Date of Service: 10/17/22 Pre-op diagnosis: Quad rupture Post-op diagnosis: other (same) Procedure: Quad repair Implants: none Surgeon: Aleksander Domínguez MD Anesthesia: GETA and regional Was an Global Safety Officer used for this Procedure?: Yes Global Safety Officer: Neha Sanchez Estimated blood loss (mL): 20 Tourniquet time (min): 30 IV fluids (mL): 750 Pathology: none sent Condition: stable Disposition: PACU Procedure in detail: Patient was brought to the operating room and placed supine on the surgical table. She was prepped and draped in standard sterile fashion and a time out was called to identify proper site, proper procedure and IV antibiotics per weight were administered. I began by exsanguinating the limb and insufflating the tourniquet to 300 mm Hg. I then made an incision through the prior midline arthroplasty incision using the proximal 2/3 and extending this an additional 2 cm. Full-thickness flaps were developed and immediately evident was a quadriceps tendon disruption through the arthrotomy. Essentially this is a traumatic dehiscence of the proximal half of the peripatellar arthrotomy performed approximately 4 weeks ago for her total knee replacement. There was no evidence of infection and fortunately for her the dehisced portion of the tendon was healthy appearing and intact arm in its entirety. I debrided some of the fibrous tissue that had developed and irrigated with pulse lavage in the joint copiously. I then used a running Quill suture to reapproximate the proximal 60% of the deep arthrotomy incision. I took the knee through range of motion. She had full range of motion and there was no evidence of strain or at disruption of the repair therefore I irrigated copiously . The tourniquet was let down. There was no brisk bleeding. A layered closure with absorbable suture and enrico was performed. Patient was placed into a total joint dressing and an Bhaskar wrap and brought to recovery room in stable condition. There were no known complications. She will be weight-bearing as tolerated and we will proceed as per total joint arthroplasty protocol. I do think she will require an assistive device for ambulation over the next 2-4 weeks however.
== END 2022-10-17 11:15 | disposition home or self-care (01) ==
PROVIDERS: PCP Pediatrics; Visit Provider Orthopaedic Surgery
PROC: (CPT 27385; principal; 2022-10-17 07:30)
DX: T81.32XA Disruption of internal operation (surgical) wound, not elsewhere classified, initial encounter (principal); S76.121A Laceration of right quadriceps muscle, fascia and tendon, initial encounter; Y79.8 Miscellaneous orthopedic devices associated with adverse incidents, not elsewhere classified; Y83.9 Surgical procedure, unspecified as the cause of abnormal reaction of the patient, or of later complication, without mention of misadventure at the time of the procedure; Y92.9 Unspecified place or not applicable; Z96.651 Presence of right artificial knee joint; M17.11 Unilateral primary osteoarthritis, right knee; E78.00 Pure hypercholesterolemia, unspecified; F32.A Depression, unspecified; Z79.899 Other long term (current) drug therapy; Z88.0 Allergy status to penicillin; Z88.1 Allergy status to other antibiotic agents; Z88.2 Allergy status to sulfonamides; F17.290 Nicotine dependence, other tobacco product, uncomplicated
CPT/HCPCS: 27385; J0131; J0690; J1100; J1170; J1885; J2250; J2370; J2405; J2795; J3010

== ENCOUNTER → 2022-10-25 11:58 | Outpatient (BNVA) | payer MEDICARE, SELFPAY | PROVIDERS: PCP Pediatrics; Visit Provider Orthopaedic Surgery | DX: M17.0 Bilateral primary osteoarthritis of knee (principal); Z96.651 Presence of right artificial knee joint; Z96.642 Presence of left artificial hip joint | CPT/HCPCS: 99212 ==

== ENCOUNTER → 2022-11-02 11:26 | Outpatient (BNVA) | payer MEDICARE, SELFPAY | PROVIDERS: PCP Pediatrics; Visit Provider Orthopaedic Surgery | DX: M17.12 Unilateral primary osteoarthritis, left knee (principal); Z98.890 Other specified postprocedural states; Z96.659 Presence of unspecified artificial knee joint | CPT/HCPCS: 20610; J1100 ==

== ENCOUNTER 2022-12-03 11:17 | Outpatient (AMB) | payer MEDICARE, SELFPAY ==
--- NOTE | 2022-12-03 11:22 | A.OFFVIS_ITS ---
Intake Intake Visit Reasons: PO-RT TKA 09/11/22 NE F/U Intake Note: Patti is a 66 year old female who presents today for a post operative appointment s/p Right TKA 09/11/22.?? Allergies amoxicillin Allergy (Mild, Verified 12/03/22 11:29) rash Penicillins Allergy (Mild, Verified 12/03/22 11:29) Rash sulfa drugs Allergy (Mild, Uncoded 12/03/22 11:29) rash HPI PO-RT TKA 09/11/22 NE F/U HPI Details 67-year-old female who returns to the office today for post-op right TKA, 09/11/22 adn quad tendon repair 10/17/[address] Domínguez. She states she is doing well, she continues to work with PT on her ROM and strength and has no concerns today. PFSH Medical History Depressed High cholesterol Osteoarthritis of knees, bilateral Personal history of COVID-19 Postoperative nausea Vapes nicotine containing substance Surgical History History of left hip replacement Hx of colonoscopy S/P bilateral foot surgery Social History Household Members: [facility] Are you a primary home care music therapist to a significant other at home: No Do you presently have visiting nurse or other home services: No Patient Tobacco Use Status: Former Tobacco user Quit Date: 06/2022 Tobacco use type: Cigarette Cigarettes Per Day: 5 Years Smoked: 32 e-Cigarette/Vaping Use: Currently Using Second Hand Smoke Exposure: No service: No Current occupational status: retired Current occupation: rt hand Review of Systems Const All systems reviewed & are unremarkable except as noted in HPI and below Physical Exam Extrem Other: Left knee: Incision is well healed. There is no erythema or swelling. She has 5 degrees extension lag and 90 degrees of flexion. Calf supple, nontender. NVI. Assessment & Plan Assessment & Plan (1) S/P tendon repair: Code(s): Z98.890 - Other specified postprocedural states (2) S/P total knee arthroplasty: Comment: right total knee arthroplasty 09/11/2022 NE Code(s): Z96.659 - Presence of unspecified artificial knee joint Plan Dr. Domínguez was available to see the patient with me today. She will progress with physical therapy, ROM till tolerance and begin gentle strengthening. She will see back in 6 weeks for routine post-op appointment, sooner if needed. Orders: Orders PT Evaluation and Treatment Today Z96.659 - Presence of unspecified artificial knee joint, Z98.890 - Other specified postprocedural states Patient Instructions: Scribed for Gabi Pickard PA-C, by Lex Tejada medical office specialist, on 12/03/2022 at 11:15 AM EST. I, Gabi Pickard PA-C, have personally reviewed and agree with the information entered by the scribe. Coding Level of Care Code Global (27196) Diagnoses S/P tendon repair Z98.890 S/P total knee arthroplasty Z96.659
== END 2022-12-03 11:43 | disposition home or self-care (01) ==
PROVIDERS: PCP Pediatrics; Visit Provider Physician Assistant
DX: Z98.890 Other specified postprocedural states (principal); Z96.659 Presence of unspecified artificial knee joint
CPT/HCPCS: 99024

== ENCOUNTER → 2022-12-03 11:17 | Outpatient (BNVA) | payer MEDICARE, SELFPAY | PROVIDERS: PCP Pediatrics; Visit Provider Physician Assistant ==

== ENCOUNTER 2023-01-11 13:00 | Outpatient (RCR) | payer MEDICARE, SELFPAY ==
--- NOTE | 2022-09-27 14:45 | MHC.PT.EP ---
[facility] [place] Office [place] Office [place] Office [address] Alexander Dyosn [address] [phone] F: [phone] F: [phone] F: [phone] F: [phone] Physical Therapy Plan of Care Date of Evaluation: Date of Surgery: 09/11/22 Diagnosis: S/P RIGHT TKA Assessment: 66 YO FEMALE REF TO PT S/P Rt TKA ON 09/11/22. SHE RESIDES W HER SPOUSE IN A 2 LEVEL CONDO AND IS CURRENTLY AMB W A CANE . OBJECTIVE FINDINGS: LIMITED AROM Rt KNEE (END RANGE FLEX AND EXT), TIGHT PSOAS MM KENISHA AND DECR ANKLE DF KENISHA; DECR STRENGTH IN PROX / LUMBOPELVIC AND Rt LE, POST-OP PAIN IN RIGHT KNEE ,AND HEALING ANT Rt KNEE INCISION. FUNCTIONALLY, Pt IS AMB W A CANE- SHE HAS COMPENSATORY GAIT, MODIFIED STAIR MGMT, DECR STANDING, SLEEPING, AND DECR EKTA TO ADLs REQ Rt KNEE FLEX. Pt IS A VERY GOOD PT CANDIDATE TO GUIDE HER IN HER POST-OP TKR COURSE, ADDRESSING THE ABOVE FINDINGS, PAIN MGMT, AND MAXIMIZING FUNCTIONAL INDEPENDENCE. Frequency and Duration: The patient will be seen 2 x WK x 8 WKS Short Term Goals: *Pt WILL DEMON EFFICIENT GAIT MECHANICS W LEAST RESTRICTIVE ASST DEVICE ON LEVEL GROUND AND STAIRS *Pt'S RIGHT KNEE PAIN WILL DECR TO 2-3/10 *Pt DEMON APPROP BED MOB/ POSITIONING/ SIT <-> STAND/ CAR TRANSFERS W GRADUAL INCREASE IN Rt LE ACTIVE USE *MONITOR Rt ANT KNEE INCISIONAL HEALING AND THEN SCAR MOBILIZATION [employer] Goals: *Pt WILL IMPROVE LUMBOPELVIC/ Lt LE STRENGTH TO AT LEAST 5-/5 *Pt DEMON Rt KNEE AROM 0* TO 125* *Pt RESUME AT LEAST PLOF EVIDENT W IMPROVED LEFI SCORE (AT EVAL 41/80 ) *Pt INDEP W PROGR HEP AND SELF-SX MGMT TECHN Treatment Plan: Modalities to reduce pain, spasms and effusion. Manual therapy to restore motion and function. Therapeutic exercise to improve strength and flexibility. Neuromuscular re-education for posture and balance. Therapeutic activities to return to functional activities of daily living. Electronically signed by: DOMITILA HIDALGO PT Please sign and return to therapist. Thank you for your referral.
--- NOTE | 2022-11-15 15:43 | MHC.PT.OD ---
[facility] [place] Office [place] Office [place] Office [address] Alexander Dyson [address] [phone] F: [phone] F: [phone] F: [phone] F: [phone] Physical Therapy Daily Note Diagnosis: s/p R TKA with quad repair NO FLEXION OVER 90\ NO BIKE Date of Surgery: 09/11/22 Date of Evaluation: 09/27/22 Date of Treatment: 11/15/22 Treatments to Date: 9 Cancellations to Date: 0 No Shows to Date: 0 Authorized Visits: Insurance End Date: Precautions/ Contraindications:NO FLEXION OVER 90 QUAD repair NO BIKE gentle quad strengthening Subjective: I fell again on Saturday evening. I was telling myself to go upt the stairs with the good and down with the bad knee, but then and I went up with my R knee first, and I fell smacking my left knee on the stairs. Pt report not using her cane and did not have a railing on the stairs. Pain Score and Location: 5 R KNEE Objective Flowsheet: Tests & Measures No ecchymosis noted on either LE- pt reports some mild tenderness medial aspect R knee and over L patella stating I thought at first that my kneecap was broken. Pt reports she took it easy for several days and has not been performing her exercises. Has been icing both knees. L LE AROM -3 to 130, SLR fair pain expressed at site of patella. R knee -5 AROM to 100 degrees (not forcing ROM just gentle AROM), SLR fair with mild quad lag observed (did have some lag at time of last session as well). Therapist asked patient if she phoned orthopedics. Attempt made to call Delia Patel extension x 2 to relay information. Therapist also attempted to call [phone] extension to reach ortho dept. Therapist unable to connect. Therapist Armando Texted Delia Patel, nurse navigavtor to relay information. Pt denies hitting R knee during trauma. No palpable defect in R knee. R knee appears as it was prior to incident. Pt reports she was not using her cane or a railing during time of incident. Pt encouraged/educated to use cane and consider installing a grab bar/railing on side of staircase to improve safety. Pt encouraged to use RW>std cane to improve safety and confidence. Pt reports fear of falling again. Pt has been encouraged to use ice and perform heel prop for both knees. Therapist reiterated no forced flexion with ROM to remain 90 degrees for R knee. Pt encouraged to continue working on quad strength with QS and SLR. No open chain knee extension performed due to stress on quadriceps/history of quad repair. Therapist educated patient she would be notifying orthopedics of incident in case they feel they want to see her sooner. Exercises NO BIKE AT THIS TIME due to ROM restrictions>load on knee. Assessment ROM/strength/eval as noted above at start of session as noted. Isometric QS with towel roll x 5 sec hold x 30R, then QS without towel roll x 30R, SLR AAROM x 5R with aide of therapist to reduce lag, then 10R solo, SL hip adduction, hip abd, and prone hip extension completed on R LE, (no pain with goal of quad activation, heel prop for extension with ice passively x 10 minutes. Review of seated HS stretch and gastroc stretch. Pt encouraged to use AD and railing at all times for safety. Pt to see Dr. Domínguez at end of November. Gait training with encouragement to use RW. Review of step-up with ascending L LE, descending with R LE first to improve. self care gradually increasing reps/sets of quad strengthening, education cannot drive, education re: goals of same exercises no bike, no flexion >90 until next ortho follow up appt which is end of November. Modalities Assessment: 11/15/22 Pt reports having sustained fall on 11/09/22 with impact hitting L patella/knee when ascending stairs leading with her R LE first. Pt exhibits ongoing weakness with SLR (appears similar to previous session). Therapist did not detect any palpable or witness concern for quad compromise on the R LE however pt was educated to continue use of her AD and ascend stairs L LE first, descend stairs R LE first to reduce risk. We discussed the benefit in possible installment of a rail/grab bar to have to entrance into home. ROM -5 AROM at start of session, passively full extension post ice. We reviewed precautions/goals at this point and the importance of therapist notifying orthopedics so they can determine if they want to see her or not. 11/06/22 Added SL hip abd and SL hip adduction to home program. Pt now able to perform SLR into flexion with good control, no lag. Pt reeducated re: no flexion >90 degrees, next ortho follow up end of November. PT Plan: Await plan from ortho Short Term Goals: *Pt WILL DEMON EFFICIENT GAIT MECHANICS W LEAST RESTRICTIVE ASST DEVICE ON LEVEL GROUND AND STAIRS *Pt'S RIGHT KNEE PAIN WILL DECR TO -07/20 *Pt DEMON APPROP BED MOB/ POSITIONING/ SIT <-> STAND/ CAR TRANSFERS W GRADUAL INCREASE IN Rt LE ACTIVE USE *MONITOR Rt ANT KNEE INCISIONAL HEALING AND THEN SCAR MOBILIZATION [employer] Goals: *Pt WILL IMPROVE LUMBOPELVIC/ Lt LE STRENGTH TO AT LEAST 5-/5 *Pt DEMON Rt KNEE AROM 0* TO 125* *Pt RESUME AT LEAST PLOF EVIDENT W IMPROVED LEFI SCORE (AT EVAL 41/80 ) *Pt INDEP W PROGR HEP AND SELF-SX MGMT TECHN Electronically signed by: Alfreda Bowen, PT, DPT
== END 2023-06-11 12:05 | disposition home or self-care (01) ==
LOC: HO.PTWFD 13:00
PROVIDERS: PCP Pediatrics; Visit Provider Physician Assistant
DX: Z96.651 Presence of right artificial knee joint (principal)
CPT/HCPCS: 97110; 97116; 97150; 97161; 97535

== ENCOUNTER 2023-01-17 10:21 | Outpatient (AMB) | payer MEDICARE, SELFPAY ==
--- NOTE | 2023-01-17 10:23 | A.OFFVIS_ITS ---
Intake Intake Visit Reasons: OV-RT TKA 09/11/22 NE F/U Intake Note: Patti is a 67 year old female who presents today for a follow up of her right knee s/p Right TKA 09/11/22. Patient reports that she is doing well with no conerns at this time. Allergies amoxicillin Allergy (Mild, Verified 12/03/22 11:29) rash Penicillins Allergy (Mild, Verified 12/03/22 11:29) Rash sulfa drugs Allergy (Mild, Uncoded 12/03/22 11:29) rash HPI OV-RT TKA 09/11/22 NE F/U HPI Details Patti is a 67 year old woman who presents ~ 4 months S/P right TKA & ~3 months S/P quad tendon repair. She says she is doing well and is happy with the results of her surgery. She has recently completed her PT and continues to perform her exercises at home. She says is already scheduled for a left TKA on 05/21/23, which she looks forward to as her left knee is very painful. [facility] Medical History Depressed High cholesterol Osteoarthritis of knees, bilateral Personal history of COVID-19 Postoperative nausea Vapes nicotine containing substance Surgical History History of left hip replacement Hx of colonoscopy S/P bilateral foot surgery Social History Household Members: Spouse Housing: [facility] Are you a primary manager medicare marketing to a significant other at home: No Do you presently have visiting nurse or other home services: No Patient Tobacco Use Status: Former Tobacco user Quit Date: 06/2022 Tobacco use type: Cigarette Cigarettes Per Day: 5 Years Smoked: 32 e-Cigarette/Vaping Use: Currently Using Second Hand Smoke Exposure: No service: No Current occupational status: retired Current occupation: rt hand Review of Systems Const All systems reviewed & are unremarkable except as noted in HPI and below Physical Exam Const General: no acute distress, alert and awake Orientation/consciousness: patient oriented x3 HEENT Head: Yes normocephalic and Yes atraumatic Eyes EOM: EOMs intact bilaterally Resp Effort & Inspection: normal respiratory effort and able to speak in complete sentences Cardio Jugular venous distension: no JVD Skin General skin exam: turgor normal Rashes: no rashes Neuro General: patient oriented x3 Extrem Other: Right Knee: Well-healed incisions Full ROM Psych Appearance: grossly normal Affect: normal affect Attitude: cooperative Results Reviewed Results Reviewed: I personally reviewed relevant radiographs. Right total knee arthroplasty in expected post operative position with no hardware complications or evidence of loosening Assessment & Plan Assessment & Plan (1) S/P tendon repair: Code(s): Z98.890 - Other specified postprocedural states Plan: This is a 66 year old woman S/P right quad tendon repair, DOS: 10/17/22, and S/P right TKA, DOS: 09/11/22. She is doing well and denies any pain. She has finished her course of PT and continues to perform at-home exercises. I recommend she continue with her at-home exercise and activity as tolerated. She can follow up prn. (2) Osteoarthritis of left knee: Code(s): M17.12 - Unilateral primary osteoarthritis, left knee Plan: Continues to have pain with activity, she is scheduled for a left TKA on 05/21/23. (3) S/P total knee arthroplasty: Comment: right total knee arthroplasty 09/11/2022 NE Code(s): Z96.659 - Presence of unspecified artificial knee joint Plan Scribed for Aleksander Domínguez MD by Christian Lovett, medical laboratory technicians, on 01/17/23 at 10:35 AM, EST. Coding Level of Care Code Est Pt Level 3 (63009) Diagnoses S/P tendon repair Z98.890 Osteoarthritis of left knee M17.12 S/P total knee arthroplasty Z96.659
== END 2023-01-17 10:50 | disposition home or self-care (01) ==
PROVIDERS: PCP Pediatrics; Visit Provider Orthopaedic Surgery
DX: Z47.1 Aftercare following joint replacement surgery (principal); Z96.659 Presence of unspecified artificial knee joint
CPT/HCPCS: 99213

== ENCOUNTER → 2023-01-17 10:21 | Outpatient (BNVA) | payer MEDICARE, SELFPAY | PROVIDERS: PCP Pediatrics; Visit Provider Orthopaedic Surgery | DX: M17.0 Bilateral primary osteoarthritis of knee (principal); Z96.651 Presence of right artificial knee joint; Z96.642 Presence of left artificial hip joint; Z98.890 Other specified postprocedural states | CPT/HCPCS: 99212 ==

== ENCOUNTER 2023-09-12 10:57 | Outpatient (AMB) | payer MEDICARE, SELFPAY ==
--- NOTE | 2023-09-12 11:04 | MHC.OFFVIS ---
Intake Visit Reasons: Preop LT TKA 09/18/23 NE Intake Note: Patti is a 67 year old female who presents today for a pre op appointment for her LT TKA 09/18/23 NE. Allergies amoxicillin Allergy (Mild, Verified 09/12/23 11:05) rash Penicillins Allergy (Mild, Verified 09/12/23 11:05) Rash sulfa drugs Allergy (Mild, Uncoded 09/11/23 14:13) rash HPI HPI Preop LT TKA 09/18/23 NE: Details: 67-year-old right hand dominant female who presents in the office today for her preoperative history and physical exam prior to a left total knee arthroplasty to be performed on 09/18/[address] Aleksander Domínguez. Patient has an allergy history, as follows: -Amoxicillin; rash -Penicillin; rash -Sulfa drugs; rash Patient is currently taking, as follows: -Acetaminophen 650 mg PO Q6H PRN -Amlodipine 2.5 mg PO daily -Aripiprazole 5 mg PO daily -Aspirin 81 mg PO daily -Atorvastatin 10 mg PO daily -Fluoxetine 80 mg PO daily Patient has a medical history, as follows: -Hypertension -Postoperative nausea -Depression -High cholesterol Patient has a surgical history, as follows: -Hx of total right knee replacement 09/11/22 -Hx of left hip replacement -Hx of colonoscopy -Hx bilateral foot surgery: bunionectomy and reconstruction, [facility] Patient has a social history, as follows: -Tobacco: Cigarettes 3 per day; 32 year history PFSH Medical History (Updated 09/12/23 @ 11:12 by Apryl Lainez) Smoker HTN (hypertension) Injury of quadriceps muscle Postoperative nausea Personal history of COVID-19 Osteoarthritis of knees, bilateral Depressed High cholesterol Surgical History (Updated 09/11/23 @ 14:06 by Fabi Mcadams RN) History of total right knee replacement (09/11/22) History of left hip replacement Hx of colonoscopy S/P bilateral foot surgery Social History (Updated 09/11/23 @ 14:23 by Fabi Mcadams RN) Household Members: Spouse Housing: Condominium Are you a primary home visit field care manager to a significant other at home: No Do you presently have visiting nurse or other home services: No 75 years or older and lives alone: No Comment: aware of trip hazard Patient Tobacco Use Status: Current everyday Tobacco user Tobacco use type: Cigarette Cigarettes Per Day: 3 Years Smoked: 32 e-Cigarette/Vaping Use: Former Use Second Hand Smoke Exposure: No Use of substances other than those prescribed or required for medical reasons: No service: No Current occupational status: retired Current occupation: rt hand Review of Systems Const All systems reviewed & are unremarkable except as noted in HPI and below Physical Exam Const General: cooperative, healthy appearing, comfortable, no acute distress, well developed, alert and awake Orientation/consciousness: patient oriented x3 HEENT Head: Yes normal to inspection, Yes normocephalic and Yes atraumatic Eyes General: appearance normal, both eyes and all related structures Neck Neck: Yes normal visual inspection and Yes no lymphadenopathy Resp Effort & Inspection: normal respiratory effort and able to speak in complete sentences Cardio Rate: regular rate Peripheral pulses: Peripheral pulses 2+ throughout GI Inspection: Yes normal to inspection Palpation (GI): Soft to palpation Skin General skin exam: no rashes or lesions noted Neuro General: patient oriented x3 Extrem Other: Left knee: Skin is intact. Crepitus felt with ROM. ROM is 0-120 degrees. NVI. Psych Mental Status: mental status grossly normal Assessment & Plan Assessment & Plan (1) Osteoarthritis of left knee: Code(s): M17.12 - Unilateral primary osteoarthritis, left knee Category: Medical Qualifiers: Osteoarthritis type: unspecified Qualified Code(s): M17.12 - Unilateral primary osteoarthritis, left knee Plan Ms. Garcia is a 67-year-old right hand dominant female who presents in the office today for her preoperative history and physical exam prior to a left total knee arthroplasty to be performed on 09/18/[address] Aleksander Domínguez. Patient has an allergy history, as follows: -Amoxicillin; rash -Penicillin; rash -Sulfa drugs; rash Patient is currently taking, as follows: -Acetaminophen 650 mg PO Q6H PRN -Amlodipine 2.5 mg PO daily -Aripiprazole 5 mg PO daily -Aspirin 81 mg PO daily -Atorvastatin 10 mg PO daily -Fluoxetine 80 mg PO daily Patient has a medical history, as follows: -Hypertension -Postoperative nausea -Depression -High cholesterol Patient has a surgical history, as follows: -Hx of total right knee replacement 09/11/22 -Hx of left hip replacement -Hx of colonoscopy -Hx bilateral foot surgery: bunionectomy and reconstruction, [facility] Patient has a social history, as follows: -Tobacco: Cigarettes 3 per day; 32 year history I discussed in detail the procedure and what to expect pre and post operatively. We discussed the risks, benefits and alternatives to the surgery and the rehabilitation course. The risks include infection, bleeding, nerve injury, ongoing pain, swelling, and stiffness, perioperative risk of injury to bones and soft tissues, and blood clots. I have answered all questions and with their understanding they have consented to move forward with a left total knee arthroplasty to be performed on 09/18/[address] Aleksander Domínguez. Follow-up will be at the post operative appointment on 10/03/2023, or sooner if needed. X-rays for surgical planning were obtained in the office today. Orders: Orders XR knee LT 3V Today M25.569 - Pain in unspecified knee Patient Instructions: Scribed by Apryl Lainez adjunct faculty for medical terminology, for Neha Sanchez PA-C on 09/12/2023 at 11:10 am, EST. Coding Level of Care Code Global (82879) Diagnoses Osteoarthritis of left knee, unspecified osteoarthritis type M17.12 Osteoarthritis type: unspecified
== END 2023-09-12 11:50 | disposition home or self-care (01) ==
PROVIDERS: PCP Pediatrics; Visit Provider Physician Assistant
DX: M17.12 Unilateral primary osteoarthritis, left knee (principal)
CPT/HCPCS: 99024

== ENCOUNTER 2023-09-12 10:57 | Outpatient (REF) | payer MEDICARE, SELFPAY ==
--- NOTE | ~2023-09-12 | XR_ITS ---
EXAMINATION: XR KNEE, LEFT CLINICAL INFORMATION: Pain in unspecified knee. COMPARISON: 10/04/2022. TECHNIQUE: AP view of bilateral knees as well as sunrise and lateral views of the left knee. FINDINGS: Standing view of the right knee: Status post right knee total arthroplasty. Hardware appears intact. Alignment preserved. Three (3) views of the left knee: Moderate joint effusion. [id number] degenerative changes in the medial and patellofemoral compartments with joint space narrowing and hypertrophic change. XR/XR knee LT 3V IMPRESSION: 1. Status post right knee total arthroplasty. Hardware appears intact. Alignment preserved. 2. Moderate left joint effusion. [id number] degenerative changes in the medial and patellofemoral compartments.
== END 2023-09-12 10:58 | disposition home or self-care (01) ==
LOC: HO.HOSX 10:57
PROVIDERS: PCP Pediatrics; Visit Provider Physician Assistant
DX: M17.12 Unilateral primary osteoarthritis, left knee (principal)
CPT/HCPCS: 73562; 99212

== ENCOUNTER 2023-09-18 06:56 | Inpatient (IN) | payer MEDICARE, SELFPAY ==
[2023-09-11 14:13] VITALS: BP 143/74; PULSE 82; RESP 16; O2SAT 97; BMI 31.1
--- NOTE | 2023-09-11 14:31 | P.CONAN_ITS ---
Documented by User: Ro Durán NP 09/16/23 14:19 HPI - Anesthesia Eval Consult details Narrative: 67yo F for Left Knee Replacement Total Medically cleared s/p R TKA 09/11/22 with spinal/block PONV with last total - good effect with scop for quad repair under [place] Smoker. Advised quit. PMFSH Active Problems Active Problems: All Active Problems Osteoarthritis of left knee (Acute) S/P tendon repair (Acute) S/P total knee arthroplasty (Acute) Osteoarthritis of right knee (Acute) Past Medical History Medical History (Updated 09/12/23 @ 11:12 by Apryl Lainez) Smoker HTN (hypertension) Injury of quadriceps muscle Postoperative nausea Personal history of COVID-19 Osteoarthritis of knees, bilateral Depressed High cholesterol Family History Family history of problems with anesthesia: No Surgical History Surgical History (Updated 09/11/23 @ 14:06 by Fabi Mcadams RN) History of total right knee replacement (09/11/22) History of left hip replacement Hx of colonoscopy S/P bilateral foot surgery History of Problems with Anesthesia: Yes Social History Social History (Updated 09/11/23 @ 14:23 by Fabi Mcadams RN) Household Members: [facility] Are you a primary eye care professional to a significant other at home: No Do you presently have visiting nurse or other home services: No Comment: aware of trip hazard Patient Tobacco Use Status: Current everyday Tobacco user Tobacco use type: Cigarette Cigarettes Per Day: 3 Years Smoked: 32 Smoked in Last 30 Days: Yes e-Cigarette/Vaping Use: Former Use Patient Interested in Nicotine Replacement: No Second Hand Smoke Exposure: No Use of substances other than those prescribed or required for medical reasons: No Have you been hit, kicked, punched, or otherwise hurt by someone within the past year? If so, by whom?: No Are you DNR?: No Advance Directives: No Advance Directives Information Provided: Yes Advance Directives on File: No Recently lost weight without trying: No Nutrition Risks: No Nutritional Risk Poor oral hygiene: No service: No Current occupational status: retired Current occupation: rt hand Meds Allergies Allergy/AdvReac Type Severity Reaction Status Date / Time amoxicillin Allergy Mild rash Verified 09/12/23 11:05 Penicillins Allergy Mild Rash Verified 09/12/23 11:05 sulfa drugs Allergy Mild rash Uncoded 09/11/23 14:13 Home Medications ?Medication ?Instructions ?Recorded ?Confirmed ?Last Taken ?Type atorvastatin 10 mg tablet 10 mg PO BEDTIME 05/24/22 09/18/23 09/17/23 History fluoxetine 40 mg capsule 80 mg PO DAILY 08/30/22 09/11/23 09/18/23 06:20 History amlodipine 2.5 mg tablet 2.5 mg PO DAILY 09/11/23 09/11/23 09/18/23 06:20 History aripiprazole 5 mg tablet 5 mg PO DAILY 09/11/23 09/11/23 09/18/23 06:20 History aspirin 81 mg chewable tablet 81 mg PO DAILY 09/11/23 09/11/23 09/15/23 History Exam Height,Weight and Vital Signs: Height 5 ft 2 in Weight 77.1 kg Last Vital Signs Pulse 82 09/11/23 14:13 Resp 16 09/11/23 14:13 BP 143/74 H 09/11/23 14:13 Pulse Ox 97 09/11/23 14:13 O2 Del Method Room Air 09/11/23 14:13 Pertinent Lab Results Pertinent Lab Results: CBC and BMP 08/2023 from outside facility WNL Narrative Narrative: EKG 08/2023 NSR @ 78 Airway Mallampati Class: II TM Dist: <=3cm Neck ROM: Full Loose/Missing/Broken Teeth: Yes (broken molars, missing lower left molar, molars crowned) Heart: rrr Lungs: cta Assessment and Plan Assessment Anesthesia Assessment: Anesthesia Plan Discussed, Smoking Cess. Discussed and PAT Visit Final Anesthetic Review Family History of Problems with Anesthesia: No History of Problems with Anesthesia: Yes Documented by User: Pamela Gonzalez MD 09/18/23 08:12 [facility] Past Medical History Medical History (Updated 09/12/23 @ 11:12 by Apryl Lainez) Smoker HTN (hypertension) Injury of quadriceps muscle Postoperative nausea Personal history of COVID-19 Osteoarthritis of knees, bilateral Depressed High cholesterol Surgical History Surgical History (Updated 09/11/23 @ 14:06 by Fabi Mcadams RN) History of total right knee replacement (09/11/22) History of left hip replacement Hx of colonoscopy S/P bilateral foot surgery Social History Social History (Updated 09/11/23 @ 14:23 by Fabi Mcadams RN) Household Members: [facility] Are you a primary eye care professional to a significant other at home: No Do you presently have visiting nurse or other home services: No Comment: aware of trip hazard Patient Tobacco Use Status: Current everyday Tobacco user Tobacco use type: Cigarette Cigarettes Per Day: 3 Years Smoked: 32 Smoked in Last 30 Days: Yes e-Cigarette/Vaping Use: Former Use Patient Interested in Nicotine Replacement: No Second Hand Smoke Exposure: No Use of substances other than those prescribed or required for medical reasons: No Have you been hit, kicked, punched, or otherwise hurt by someone within the past year? If so, by whom?: No Are you DNR?: No Advance Directives: No Advance Directives Information Provided: Yes Advance Directives on File: No Recently lost weight without trying: No Nutrition Risks: No Nutritional Risk Poor oral hygiene: No service: No Current occupational status: retired Current occupation: rt hand Meds Allergies Allergy/AdvReac Type Severity Reaction Status Date / Time amoxicillin Allergy Mild rash Verified 09/12/23 11:05 Penicillins Allergy Mild Rash Verified 09/12/23 11:05 sulfa drugs Allergy Mild rash Uncoded 09/11/23 14:13 Home Medications ?Medication ?Instructions ?Recorded ?Confirmed ?Last Taken ?Type atorvastatin 10 mg tablet 10 mg PO BEDTIME 05/24/22 09/18/23 09/17/23 History fluoxetine 40 mg capsule 80 mg PO DAILY 08/30/22 09/11/23 09/18/23 06:20 History amlodipine 2.5 mg tablet 2.5 mg PO DAILY 09/11/23 09/11/23 09/18/23 06:20 History aripiprazole 5 mg tablet 5 mg PO DAILY 09/11/23 09/11/23 09/18/23 06:20 History aspirin 81 mg chewable tablet 81 mg PO DAILY 09/11/23 09/11/23 09/15/23 [address] Exam Air[address] Mallampati Class: II (caps back molar) Assessment and Plan Final Anesthetic Review NPO: Yes ASA Class: III Final Preanesthetic Review: No Changes in Pt Med Stat, Meds/Allgs Chart Reviewed and Consent Obtained/Reviewed Patient Risk: Low Procedure Risk: Low Anesthetic Plan Anesthetic Plan: GA Disposition: Standard PACU
[2023-09-11 16:23] LABS: MRSA Nasal PCR NEGATIVE (Negative); SA Nasal PCR NEGATIVE (Negative)
[2023-09-18] VITALS (14 sets, daily range): BP systolic 82–124; BP diastolic 28–68; PULSE 61–92; RESP 12–18; TEMP 36–36.6; O2SAT 93–99; BMI 30.5
--- NOTE | 2023-09-18 07:18 | MHC.SHP ---
Pre-Procedural Eval Section A - 24 Hr Update-Section A only Date of Service: 09/18/23 The patient is an INPATIENT: No Changes since office visit: No Cold of Flu in the past 2 weeks, No New Medical Problems, No Changes in Medication and No Patient answered all questions The patient has been examined within 24 hours of the surgical procedure. The History & Physical has been completed within 30 days and I have reviewed it.: Yes Section B - Complete if H&P > 30 days Chief Complaint: LTKA Allergies: Allergies Allergy/AdvReac Type Severity Reaction Status Date / Time amoxicillin Allergy Mild rash Verified 09/12/23 11:05 Penicillins Allergy Mild Rash Verified 09/12/23 11:05 sulfa drugs Allergy Mild rash Uncoded 09/11/23 14:13 Plan I have reviewed the history and physical and performed a pertinent physical examination on my patient. No changes have occurred unless specified. Time Spent With Patient Time: Total time managing care of this patient today ____ minutes.
--- NOTE | 2023-09-18 07:33 | PHA.MEDREC ---
Pharmacy Consult ? Medication Reconciliation Pharmacy has reviewed the medication reconciliation completed by nursing.
[2023-09-18] MEDS: Scopolamine 1.5 MG PATCH.TD.3 TRANSDERMA (07:38)
[2023-09-18] MEDS: Albuterol Sulfate (0.083%) 2.5 MG/3 ML VIAL.NEB INHALE (07:50)
[2023-09-18] MEDS: Lactated Ringers 1,000 ML 100 ML IVCONT ×3 (08:03→23:17)
--- NOTE | 2023-09-18 11:24 | PM.OP ---
Brief Operative Note Date of Service: 09/18/23 Pre-op diagnosis: Left knee OA Post-op diagnosis: same Procedure: Left TKA Implants: Devin Tridathlon press fit cruciate retaining 07/13/10 Surgeon: Aleksander Domínguez MD Anesthesia: GETA and regional Was an Fruit Or Nut Farmworker used for this Procedure?: Yes Fruit Or Nut Farmworker: Neha Sanchez Estimated blood loss (mL): 20 Tourniquet time (min): 49 IV fluids (mL): 800 Pathology: other Condition: stable Disposition: PACU
[2023-09-18] MEDS: oxyCODONE HCl Immed Release 5 MG TABLET PO ×3 (13:50→22:07)
[2023-09-18] MEDS: Acetaminophen 325 MG TABLET 650 MG PO ×2 (15:38→22:07)
[2023-09-18] MEDS: Clindamycin Phosphate/D5W 900 MG/50 ML PIGGYBACK 50 MG IV (17:55)
[2023-09-18] MEDS: Celecoxib 200 MG CAPSULE PO (20:04)
[2023-09-18] MEDS: Docusate Sodium 100 MG CAPSULE PO (20:05)
[2023-09-18] MEDS: oxyCODONE HCl ER 10 MG TAB.ER.12H PO (20:05)
[2023-09-18] MEDS: Atorvastatin Calcium 10 MG TABLET PO (20:05)
[2023-09-19] MEDS: oxyCODONE HCl Immed Release 5 MG TABLET PO ×2 (03:09→07:29)
[2023-09-19 03:23] VITALS: BP 119/60; PULSE 64; RESP 16; TEMP 36.1; O2SAT 93
[2023-09-19 06:15] LABS: MANUAL DIFF FLAG NO
[2023-09-19 06:20] LABS: Basophils Percent Auto 0.2 % (0-2); Hematocrit 30.6 % (37.0-47.0); Hemoglobin 10.3 g/dl (12.0-16.0); Imm Gran Abs Auto 0.13 X10*3/uL (0.00-0.03); Imm Gran Pct Auto 0.7 % (0.0-0.4); Lymphocytes Absolute Auto 0.9 X10*3/uL (1.2-4.9); Lymphocytes Percent Auto 5.2 % (20-40); Mean Corpuscular HGB Conc 33.7 g/dl (31.0-35.0); Mean Corpuscular Hemoglobin 31.4 pg (27.0-33.0); Mean Corpuscular Volume 93.3 fL (80.0-98.0); Mean Platelet Volume 10.4 fL (9.4-12.3); Monocytes Absolute Auto 1.2 X10*3/uL (0.1-1.2); Monocytes Percent Auto 6.7 % (2-11); Neutrophils Absolute Auto 15.2 x10*3/uL (2.0-8.3); Neutrophils Percent Auto 87.2 % (45-73); Platelet Count 259 X10*3/uL (160-400); Red Blood Count 3.28 X10*6/uL (4.20-5.50); Red Cell Distribution Width 12.5 % (11.0-16.0); White Blood Count 17.4 X10*3/uL (4.8-10.8)
[2023-09-19 06:35] LABS: Anion Gap 14 (12-20); Blood Urea Nitrogen 25 mg/dL (9-16); Calcium 9.5 mg/dL (8.4-10.2); Carbon Dioxide 23 mmol/L (22-29); Chloride 107 mmol/L (96-108); Estimated Glomerular Filt Rate > 60; Glucose Fasting 130 mg/dL (60-99); Sodium 139 mmol/L (135-145)
[2023-09-19] MEDS: Acetaminophen 325 MG TABLET 650 MG PO (07:29)
[2023-09-19 07:58] VITALS: BP 111/65; PULSE 68; RESP 16; TEMP 36; O2SAT 96
[2023-09-19] MEDS: Celecoxib 200 MG CAPSULE PO (08:45)
[2023-09-19] MEDS: amLODIPine Besylate 2.5 MG TABLET PO (08:45)
[2023-09-19] MEDS: ARIPiprazole 5 MG TABLET PO (08:45)
[2023-09-19] MEDS: oxyCODONE HCl ER 10 MG TAB.ER.12H PO (08:45)
[2023-09-19] MEDS: Docusate Sodium 100 MG CAPSULE PO (08:45)
[2023-09-19] MEDS: FLUoxetine HCl 20 MG CAPSULE 80 MG PO (08:45)
--- NOTE | 2023-09-19 09:01 | P.DS_ITS ---
DS: Providers Provider Date of Service: 09/19/23 Date of admission: 09/18/23 06:56 Primary care physician: Tio Barroso MD DS: Summary Hospital Course Hospital Course: The patient underwent a successful left total knee arthroplasty, they were transferred to PACU and then to the floor to recover. During their stay, their vitals were stable, afebrile at 96.8. Labs were unremarkable, H/H 10.3/30.6. POD 1 they were started on Aspirin 325mg po bid for DVT ppx, they also received Physical Therapy services twice a day. Prior to discharge, their dressing was clean dry and intact, and the plan was to be discharged home with [facility]NA services. Time Attestation Discharge Coordination Time (in mins): 30 Quality: Safe Use of Opioids Does Pt have an Active Cancer Diagnosis on the Problem List?: No Quality: Stroke Does the patient have a stroke diagnosis?: No Physical Exam Vital Signs: Vital Signs: Last Vital Signs Temp 96.8 F 09/19/23 07:58 Pulse 68 09/19/23 07:58 Resp 16 09/19/23 07:58 BP 111/65 09/19/23 07:58 Pulse Ox 96 09/19/23 07:58 O2 Del Method Room Air 09/19/23 07:58 BMI result Body Mass Index 30.5 Const: General: cooperative, healthy appearing and no acute distress Resp: Effort & Inspection: normal respiratory effort and able to speak in complete sentences Cardio: Rate: regular rate Peripheral pulses: Peripheral pulses 2+ throughout GI: Palpation (GI): Soft to palpation Skin: Lesions: no lesions Rashes: no rashes Extrem: Other: lt knee dressing is c/d/i. Able to dorsi/plantar flex. Calf is supple and nontender. Sensation intact. Pedal pulse intact. DS: Data Data Completed and Pending Completed studies during hospitalization [Text1]: Procedures Introduction of Anesthetic Agent into Peripheral Nerves and Plexi, Percutaneous Approach (09/11/22) Replacement of Right Knee Joint with Synthetic Substitute, Uncemented, Open Approach (09/11/22) Pending studies at discharge: Pending at discharge 09/18/23 10:37 Surgical [PTH] Routine Labs on day of discharge: Laboratory Results - last 24 hr 09/19/23 06:00 WBC 17.4 H RBC 3.28 L Hgb 10.3 L Hct 30.6 L MCV 93.3 MCH 31.4 MCHC 33.7 RDW 12.5 Plt Count 259 MPV 10.4 Immature Gran % (Auto) 0.7 H Neut % (Auto) 87.2 H Lymph % (Auto) 5.2 L [place] % (Auto) 6.7 Eos % (Auto) 0.0 Baso % (Auto) 0.2 Lymph # (Auto) 0.9 L [place] # (Auto) 1.2 Eos # (Auto) 0.0 Baso # (Auto) 0.0 Abs Immat Gran (auto) 0.13 H Absolute Neuts (auto) 15.2 H Absolute Nucleated RBC 0.000 Nucleated RBC % (auto) 0.0 Sodium 139 Potassium 5.0 Chloride 107 Carbon Dioxide 23 Anion Gap 14 BUN 25 H Creatinine 0.76 Estim Creat Clear Calc 70.0 Estimated GFR > 60 Fasting Glucose 130 H Calcium 9.5 D Discharge Plan Discharge Anticipated Discharge Date/Time: 09/19/23 08:52 Patient Disposition: Home Health Service Discharge Diagnosis: s/p LTKA Referrals: Neha Sanchez PA-C [Physician Balance Wheel Facer] - 10/03/23 1:15 am Discharge Medications: New acetaminophen 325 mg Tablet 650 mg PO Q6H PRN (Reason: Pain, Mild (Pain Scale 1-3)) 30 Days Qty: 240 0RF aspirin 325 mg Tablet 325 mg PO BID 42 Days Qty: 84 0RF celecoxib 200 mg Capsule 200 mg PO BID 30 Days Qty: 60 0RF docusate sodium 100 mg Capsule 100 mg PO BID 30 Days Qty: 60 0RF oxycodone 5 mg Tablet 5 mg PO Q4H PRN (Reason: Pain, Moderate(Pain Scale 4-6)) 7 Days Qty: 42 0RF Rx Instructions: Partial Fill upon patient request. Continued fluoxetine 40 mg capsule 80 mg PO DAILY aripiprazole 5 mg tablet 5 mg PO DAILY amlodipine 2.5 mg tablet 2.5 mg PO DAILY atorvastatin 10 mg tablet 10 mg PO BEDTIME (DME) walker Misc See Rx Instructions .MEDSUPPLY Qty: 1 0RF Rx Instructions: Folding Front wheeled walker Held aspirin 81 mg Tablet,Chewable 81 mg PO DAILY Hold Instructions: Resume on 10/31/23. Discontinued acetaminophen 325 mg Tablet 650 mg PO Q6H PRN (Reason: Pain, Mild (Pain Scale 1-3)) 30 Days Qty: 240 0RF Discharge Orders: Discharge Order (Routine); Ordered 09/19/23 Ordered By: Neha Sanchez Diet: Advance to usual diet Activity on Discharge: Use cane or walker Stand Alone Forms: Patient Portal Discharge page Print Language: Lebanese Care Plan Goals: restore fxn to left knee Health Concerns: none Plan of Treatment: Physical Therapy for ROM 0-120, quad strength, gait training. Use walker for ambulation Limit stair climbing, No shower, No tub bath, No driving Continue anticoagulant x 6 weeks Keep Aquacel dressing clean, dry and intact. Follow up with orthopedics in 2 weeks Assessment: stable for d/c
--- NOTE | 2023-09-19 09:01 | MHC.CM.PN ---
IMM delivered. Patient is from home w/ spouse and adult son. Functionally independent. Has a cane & walker in the home, temporarily used after last surgery. PCP Tio Barroso MD Completed HCP naming spouse Pavan as agent. DP: PT rec home w/ services. Patient prefers [facility]. Referral in place. Expected dc today. will transport home. CM will follow.
--- NOTE | 2023-09-19 09:02 | P.F2F_ITS ---
Service Date Service Date: 09/19/23 Encounter Date of encounter: 09/19/23 Reasons for Services Signs and symptoms assessed: s/p LTKA Pt. is considered homebound due to recent surgery. Unable to drive, poor balance, poor gait mechanics. Reason for physical therapy: home safety and mobility, therapeutic exercises, restore joint function, gait/transfer training, assess need for DME and ADL training Homebound: Leaving the home is medically contraindicated at this time without the asist of a device and/or another person due th the listed conditions above and below. Reason homebound: unsteady gait / fall risk, leg weakness, pain with ambulation, pain with transfers, poor balance / fall risk and unable to drive Certification: Based on the above findings, I certify that this patient is confined to the home and needs intermittent senior living care, physical therapy and/or speech therapy, or continues to need occupational therapy. The patient is under my care, and I have initiated the establishment of the plan of care. The patient will be followed by a physician who will periodically review the plan of care. Time Spent With Patient Time: Total time managing care of this patient today ____ minutes.
[2023-09-19 10:45] VITALS: O2SAT 98
--- NOTE | 2023-09-19 14:08 | HO.POSTANES ---
Post Anesthesia Evaluation Post Anesthesia Evaluation Date of Service: 09/18/23 Vital Signs: Vital Signs Temp Pulse Resp BP Pulse Ox O2 Del Method 09/19/23 10:45 98 Room Air 09/19/23 07:58 96.8 F 68 16 111/65 96 Room Air 09/19/23 03:23 97.0 F 64 16 119/60 93 Room Air Anesthesia: Regional and General Mental Status: Awake Pain Control: Satisfactory Nausea/Vomiting: None Hydration: Adequate Anesthesia-Related Issues: No Anes. Related Issues
--- NOTE | 2023-09-26 07:12 | P.OP_ITS ---
Operative Note Operative Note Date of Service: 09/18/23 Narrative: Date of Service: 09/18/23 Pre-op diagnosis: Left knee OA Post-op diagnosis: same Procedure: Left TKA Implants: [place] [employer] press fit cruciate retaining 07/13/10 Surgeon: Aleksander Domínguez MD Anesthesia: GETA and regional Was an [employer] used for this Procedure?: Yes [employer]: Neha Sanchez Estimated blood loss (mL): 20 Tourniquet time (min): 49 IV fluids (mL): 800 Pathology: other Condition: stable Disposition: PACU Procedure in detail: The patient was brought to the operating room and prepped and draped in standard sterile fashion. A time-out was called to identify proper site proper procedure proper surgeon and IV antibiotics were administered. 1 g of IV tranexamic acid was administered. I began by making a midline incision to the retinaculum and performed a medial parapatellar arthrotomy. The patella was translated laterally and the knee was flexed up. THe medial compartment was eburnated . I performed a small medial peel and resected the infrapatellar fat pad. Gunnison's line was then used to drill my intramedullary femoral guide and my distal femur cut of 10 mm was made in 5 degrees of valgus while protecting the soft tissues. I then measured a # 3 femur and placed my cutting guide and made my anterior posterior and chamfer cuts protecting the soft tissues at all times. Once I was satisfied with my cuts I turned my attention to the tibia. I removed the meniscus medially and laterally and , using an external cutting guide, in line with the tibial crest and the third ray, I made my distal tibial cut in 3 deg slope of while protecting the PCL the posterior soft tissues at all times. An extension block was used to confirm appropriate amount of bony resection. I then sized a #3 tibia and once I was satisfied that there was complete tibial coverage I placed my trial and with the trial femur in place took the knee through range of motion. I was satisfied with the extension and flexion as well as the stability and balance at 0, 30 and 90 degrees. I then turned my attention to the patella where I removed 1 cm from the undersurface of the patella and then trialed a 29a patellar button. Again the knee was taken through range of motion I was satisfied with the tracking. I then returned to the femur and drilled my femoral lug holes and prepared the tibia. A femoral bone plug was placed and the knee was irrigated copiously. I then press fit the patella, tibia and femur in standard fashion. I trialed different inserts until I selected a #11 insert. The final insert was placed and copious irrigation was performed. A Werewolf cautery wand was used to maintain hemostasis over the capsule and meniscal beds, the gutters and peripatellar soft tissues. The knee was then closed with a running Quill suture, a 3 0 Vicryl and enrico on the skin. Patient was then placed in sterile dressing and brought to recovery room in stable condition there were no known complications.
== END 2023-09-19 10:49 | disposition home health service (06) | DRG 470 ==
LOC: HO.SSSA 07:02 → HO.S3 12:24
PROVIDERS: Orthopaedic Surgery; Admitting Provider Physician Assistant; PCP Pediatrics; Visit Provider Physician Assistant
PROC: 0SRD0JA Replacement of Left Knee Joint with Synthetic Substitute, Uncemented, Open Approach (ICD-10-PCS; CPT 27447; principal; 2023-09-18 09:10)
DX: M17.12 Unilateral primary osteoarthritis, left knee (principal); E78.00 Pure hypercholesterolemia, unspecified; G89.18 Other acute postprocedural pain; Z87.891 Personal history of nicotine dependence; Z88.0 Allergy status to penicillin; Z88.2 Allergy status to sulfonamides; Z79.899 Other long term (current) drug therapy
CPT/HCPCS: 36415; 80048; 85025; 86850; 86900; 86901; 87640; 87641; 88305; 88311; 94640; 97110; 97116; 97161; C1776; J0131; J0665; J0736; J1100; J2250; J2371; J2405; J2704; J3010; J7120

== ENCOUNTER → 2023-09-18 06:56 | Outpatient (BNV) | payer MEDICARE, SELFPAY | PROVIDERS: Admitting Provider Physician Assistant; PCP Pediatrics; Visit Provider Orthopaedic Surgery | DX: M17.12 Unilateral primary osteoarthritis, left knee (principal) | CPT/HCPCS: 27447; 99024; G0180 ==

== ENCOUNTER 2023-09-23 15:25 | Inpatient (IN) | payer MEDICARE, SELFPAY ==
[2023-09-23] VITALS (8 sets, daily range): BP systolic 93–118; BP diastolic 45–63; PULSE 85–110; RESP 16–26; TEMP 36.1–36.6; O2SAT 83–95; BMI 30.1; BMI 32.4
--- NOTE | ~2023-09-23 | CT_ITS ---
EXAMINATION: CT ANGIOGRAM OF THE CHEST WITH AND WITHOUT CONTRAST (CT PULMONARY ANGIOGRAM FOR PE) CLINICAL INFORMATION: Reason for Exam hypoxic s/p knee replacement COMPARISON: None available. TECHNIQUE: Prior to contrast administration, noncontrast localization images were obtained. Subsequently, multidetector volumetric imaging was performed from the thoracic inlet to below the diaphragms following the administration of 75 mL Omnipaque 350 intravenous contrast. No contrast reaction reported Sagittal, coronal, and MIP oblique sagittal reformatted images were obtained on the CT workstation, uploaded to PACS, and reviewed. This CT examination was performed using dose optimization techniques as appropriate, variously including the following: *Automated exposure control *Adjustment of mA and/or kV according to patient size (this includes techniques or standardized protocols for targeted exams where dose is matched to indication/reason for exam; i.e. extremities or head) *Use of iterative reconstruction technique Total exam dose-length product 326 mGy-cm FINDINGS: QUALITY OF STUDY/CONTRAST BOLUS: Satisfactory. PULMONARY ARTERIES: There is an embolus present in a segmental right upper lobe pulmonary artery beginning (8:147 and meier image). No other emboli are seen. THORACIC AORTA: No aneurysm. LUNG: Multiple groundglass infiltrates are seen involving the upper lobes, the right middle lobe and to a lesser extent both lower lobes. PLEURA: A small right effusion is present with a tiny left effusion. MEDIASTINUM: Normal heart size. No pericardial effusion. No hilar or mediastinal lymphadenopathy. No evidence of septal bowing or right heart strain. CORONARY ARTERY CALCIFICATION: None visualized on this study. CHEST WALL/AXILLA: No axillary or internal mammary lymphadenopathy. OSSEOUS STRUCTURES: No acute or suspicious osseous abnormality. UPPER ABDOMEN: Unremarkable. No reflux of contrast into the hepatic veins to suggest elevated right heart pressures. CT/CT angio chest PE protocol IMPRESSION: 1. Single segmental right upper lobe pulmonary embolus. No evidence of right heart strain 2. Bilateral groundglass infiltrates. VTE: positive.
--- NOTE | ~2023-09-23 | US_ITS ---
EXAMINATION: US VENOUS ULTRASOUND WITH DOPPLER LOWER EXTREMITY, LEFT CLINICAL INFORMATION: Edema. COMPARISON: None available. TECHNIQUE: Ultrasound of the deep veins is performed from the hip to the calf with compression sonography and color and pulse Doppler assessment. Spectral analysis with color-flow imaging is performed. FINDINGS: There is normal venous compression and respiratory variation and augmented flow. The visualized common femoral vein, superficial femoral vein, profunda femoral vein, popliteal vein, and the trifurcation region shows no evidence of deep venous thrombosis. There is no significant popliteal fossa cyst. If the patient's symptoms persist, followup ultrasound in 5 days 7 days might be of value to exclude proximal propagation from a non-visualized calf vein. US/US venous duplex LE LT IMPRESSION: No DVT demonstrated in the left lower extremity.
--- NOTE | 2023-09-23 15:30 | ED_ITS ---
HPI - SOB/Dyspnea General Chief Complaint: Dyspnea Stated Complaint: post knee replacement left, low oxygyn Time Seen by Provider: 09/23/23 15:57 Source: patient Mode of arrival: wheelchair Limitations: no limitations History of Present Illness HPI Narrative: Patient is a 67-year-old female who presents to the emergency department for evaluation of acute hypoxic respiratory failure. Patient reports that she underwent a left total knee replacement on 09/17/[address] Domínguez. While inpatient she states that she had been experiencing some shortness of breath and had some low oxygen levels, but ultimately she was discharged home. She has had progressive shortness of breath and cough since then. She reports 3 days ago when physical therapy came into her home she had low oxygen levels reportedly in the high 80s. Today when physical therapy arrived her O2 saturation was noted to be 83% on room air and she was advised to come to the emergency department for further evaluation. She states she has been taking aspirin 325 mg twice daily. She denies any personal history of DVT/PE/malignancy. She does admit to having a history of COPD, she does not know where her baseline O2 saturation is, however she states that this feels different from what she is experienced in the past with her COPD exacerbations. She denies any fevers, chills, chest pain, back pain, has pain to the left knee but denies calf pain or increased swelling. Related Data Home Medications ?Medication ?Instructions ?Recorded ?Confirmed atorvastatin 10 mg tablet 10 mg PO BEDTIME 05/24/22 09/18/23 fluoxetine 40 mg capsule 80 mg PO DAILY 08/30/22 09/11/23 amlodipine 2.5 mg tablet 2.5 mg PO DAILY 09/11/23 09/11/23 aripiprazole 5 mg tablet 5 mg PO DAILY 09/11/23 09/11/23 aspirin 81 mg chewable tablet 81 mg PO DAILY 09/11/23 09/11/23 Previous Rx's ?Medication ?Instructions ?Recorded walker #1 ea 09/06/22 acetaminophen 325 mg tablet 650 mg (2 x 325 mg) PO Q6H PRN 09/19/23 Pain, Mild (Pain Scale 1-3) 30 days #240 tabs aspirin 325 mg tablet 325 mg PO BID 42 days #84 tabs 09/19/23 celecoxib 200 mg capsule 200 mg PO BID 30 days #60 caps 09/19/23 docusate sodium 100 mg capsule 100 mg PO BID 30 days #60 caps 09/19/23 oxycodone 5 mg tablet 5 mg PO Q4H PRN Pain, 09/19/23 Moderate(Pain Scale 4-6) 7 days #42 tabs Allergies Allergy/AdvReac Type Severity Reaction Status Date / Time amoxicillin Allergy Mild rash Verified 09/23/23 15:35 Penicillins Allergy Mild Rash Verified 09/23/23 15:35 sulfa drugs Allergy Mild rash Uncoded 09/11/23 14:13 Review of Systems 2 Review of Systems: Yes all other systems are reviewed and are negative [facility] Past Medical History Attestation statement: The following information was validated with the patient. Source: old records reviewed Medical History Smoker HTN (hypertension) Injury of quadriceps muscle Postoperative nausea Personal history of COVID-19 Osteoarthritis of knees, bilateral Depressed High cholesterol Surgical History History of total right knee replacement (09/11/22) History of left hip replacement Hx of colonoscopy S/P bilateral foot surgery Social History Social History (Updated 09/11/23 @ 14:23 by Fabi Mcadams RN) Household Members: Spouse [facility] Are you a primary lawn care worker to a significant other at home: No Do you presently have visiting nurse or other home services: No Comment: aware of trip hazard Patient Tobacco Use Status: Current everyday Tobacco user Tobacco use type: Cigarette Cigarette Packs Per Day: 1 Cigarettes Per Day: 20.0 Years Smoked: 32 Smoked in Last 30 Days: Yes e-Cigarette/Vaping Use: Former Use Second Hand Smoke Exposure: No Use of substances other than those prescribed or required for medical reasons: No Advance Directives: No Advance Directives Information Provided: Yes Do you have a plan to hurt others: No Plan Nutrition Risks: No Nutritional Risk service: No Current occupational status: retired Current occupation: rt hand Physical Exam 2 Vital Signs: Vital Signs: Last Vital Signs Temp 97 F 09/23/23 19:45 Pulse 100 09/24/23 01:04 Resp 20 09/24/23 01:04 BP 108/54 L 09/24/23 01:04 Pulse Ox 94 09/24/23 01:04 O2 Del Method Nasal Cannula 09/24/23 01:04 O2 Flow Rate 2 09/24/23 01:04 BMI result Body Mass Index 32.4 Appearance: Alert.?Oriented to person, place and time. No acute distress.?Normal affect. Eyes: Pupils equal, round and reactive to light.? ENT: Pharynx normal.?? Neck: Normal inspection.? Neck supple.?? CVS: Heart sounds normal. Normal heart rate and rhythm.? Pulses normal.?? Respiratory: No respiratory distress.? Lung sounds inspiratory and expiratory wheezing bilaterally but mild Abdomen: Soft and non-tender. Normoactive bowel sounds. ?? Skin: Skin warm and dry.? Normal skin color.??? Extremities: Localized swelling to the left knee, postsurgical dressing intact. No calf ttp. 1+ DP/PT pulse on the left, 2+ DP/PT pulse on the right Neuro: Moves all extremities spontaneously. Sensation intact bilaterally. Ambulates with antalgic gait and use of walker. Course Course Course Narrative: This is a Rapid Medical Examination (RME) performed by Mima Copeland PA-C in triage. Full HPI, ROS, assessment and treatment plan per primary provider in the Main ED. 67-year-old female with history of COPD who had a total knee replacement on the left side by Dr. Domínguez 5 days ago presents the ER for evaluation of shortness of breath and hypoxia at home. Physical therapy came to the home and found her with SpO2 83%. She has been having progressive shortness of breath at home. She has been on full dose aspirin 325 b.i.d. for DVT prophylaxis. No history of blood clots in the past. Using her nebulizers at home with little relief. Patient hypoxic to 82% in triage. Heart rate 92. Blood pressure 93/63. She is speaking in full sentences, no respiratory distress but she does have some inspiratory/expiratory wheezes bilaterally. Plan: Placed on supplemental oxygen and triage. Will get CTA to rule out PE, lower extremity Doppler, lab workup, EKG. ED bronch protocol ordered Reevaluation(s) Reevaluation #1: CT reveals single segmental right upper lobe pulmonary embolus without evidence of right heart strain and bilateral ground-glass infiltrates, covered with Rocephin IV. Spoke with hospitalist, Dr. Vitaliy Molina, requesting heparin infusion treatment. Patient updated on plan of care. Agreeable for admission Medications Administered Generic Name Dose Route Start Last Admin Trade Name Freq PRN Reason Stop Dose Admin Heparin Sodium/Sodium Chloride 25,000 unit in 250 mls @ 0 mls/hr 09/23/23 22:30 09/23/23 22:46 Heparin Sodium,Porcine/1/2ns IVCONT 14 units/kg/hr .Q0M GAURANG 11.62 mls/hr Administration Protocol Per Protocol Azithromycin 500 mg/ Sodium 250 mls @ 125 mls/hr 09/23/23 22:45 09/24/23 00:54 Chloride IV Infused Q24H GAURANG Infusion Sodium Chloride 3 ml 09/24/23 00:00 09/24/23 00:45 0.9 % Sodium Chloride Flush 3 Ml Syringe IVFLUSH Not Given QSHIFT GAURANG Discontinued Medications Generic Name Dose Route Start Last Admin Trade Name Dori PRN Reason Stop Dose Admin Albuterol/Ipratropium 3 ml 09/23/23 22:40 09/23/23 23:11 Albuterol/Iprat 2.5/0.5mg 3 Ml Ampul.Neb INHALE 09/23/23 22:41 3 ml ONCE STA Administration Albuterol Sulfate 5 mg/ 0 mg 09/23/23 15:44 09/23/23 15:46 Albuterol/Ipratropium 3 ml INHALE 09/23/23 15:45 1 each ONCE ONE Administration Albuterol Sulfate 5 mg/ 0 mg 09/23/23 19:09 09/23/23 19:12 Albuterol/Ipratropium 3 ml INHALE 09/23/23 19:10 2.5 each ONCE ONE Administration Heparin Sodium (Porcine) 6,200 unit 09/23/23 21:40 09/23/23 22:45 Heparin Sodium,Porcine 5,000 Unit/Ml Vial 80 unit/kg (6200 unit) 09/23/23 21:41 6,200 unit IVPUSH Administration ONCE ONE Sodium Chloride 1,000 mls @ 999 mls/hr 09/23/23 16:30 09/23/23 18:45 Ns IV 09/23/23 17:30 Infused .Q1H1M GAURANG Infusion Ceftriaxone Sodium 1 gm/ 50 mls @ 100 mls/hr 09/23/23 21:21 09/23/23 23:03 Sodium Chloride IV 09/23/23 21:50 Infused ONCE ONE Infusion Iohexol 100 ml 09/23/23 17:58 09/23/23 17:58 Iohexol 350 Mg/Ml 100 Ml Infus..Btl IV 09/23/23 17:59 75 ml ONCE ONE Administration Methylprednisolone Sodium Succinate 80 mg 09/23/23 22:40 09/23/23 22:55 Methylprednisolone Sod Succ 125 Mg/2 Ml Vial IVPUSH 09/23/23 22:41 80 mg ONCE STA Administration Oxycodone HCl 5 mg 09/23/23 16:25 09/23/23 16:46 Oxycodone Hcl Immed Release 5 Mg Tablet PO 09/23/23 16:26 5 mg ONCE ONE Administration Oxycodone HCl 5 mg 09/23/23 20:54 09/23/23 20:59 Oxycodone Hcl Immed Release 5 Mg Tablet PO 09/23/23 20:55 5 mg ONCE ONE Administration Medical Decision Making Medical Decision Making [facility] Narrative: Patient is a 66-year-old woman with past medical history of hypertension, hyperlipidemia, depression, smoker, amd reported history of COPD (not noted in her medical record elsewhere) presenting to emergency department for evaluation of shortness of breath, room air hypoxia status post left total knee arthroplasty. She has some mild inspiratory and expiratory wheezing on examination. Acute hypoxic respiratory failure on room air noted to be a 3%, increased to > 94% on 2 L via nasal cannula. Will obtain CBC to evaluate for leukocytosis/ anemia, CMP and lipase to evaluate for abnormal electrolytes /abnormal renal function/ abnormal hepatic/biliary function, EKG and troponin to evaluate for ischemia/ACS, CT angio of the chest to rule out pulmonary embolism, viral panel, ED bronch protocol. Differential Diagnosis Differential Diagnoses: The differential diagnosis associated with the presentation includes (See narrative above) Admission/Observation Consideration of admission/observation: Escalation of care including admission/observation considered (See narrative above and course narrative for further detail) Lab Data [facility] Lab Attestation statement: I reviewed the patient's lab results. CBC reveals a leukocytosis of 12.9 which is down trending, H&H of 8.6 and 25.6 down almost 2 points when compared to labs from 4 days ago; 10.3/30.6. Troponin is elevated at 17.7, will obtain delta troponin 09/23/23 22:10 09/23/23 16:08 Labs: Lab Results 09/23/23 09/23/23 Range/Units 16:08 22:10 WBC 12.9 H 11.7 H (4.8-10.8) X10*3/uL RBC 2.75 L 2.59 L (4.20-5.50) X10*6/uL Hgb 8.6 L 8.1 L (12.0-16.0) g/dl Hct 25.6 L 24.4 L (37.0-47.0) % MCV 93.1 94.2 (80.0-98.0) fL MCH 31.3 31.3 (27.0-33.0) pg MCHC 33.6 33.2 (31.0-35.0) g/dl RDW 12.8 12.8 (11.0-16.0) % Plt Count 297 302 (160-400) X10*3/uL MPV 10.0 10.0 (9.4-12.3) fL Immature Gran % (Auto) 0.8 H (0.0-0.4) % Neut % (Auto) 81.4 H (45-73) % Lymph % (Auto) 8.7 L (20-40) % [place] % (Auto) 6.4 (2-11) % Eos % (Auto) 2.5 (0-4) % Baso % (Auto) 0.2 (0-2) % Lymph # (Auto) 1.1 L (1.2-4.9) X10*3/uL [place] # (Auto) 0.8 (0.1-1.2) X10*3/uL Eos # (Auto) 0.3 (0.0-0.4) X10*3/uL Baso # (Auto) 0.0 (0.0-0.2) X10*3/uL Abs Immat Gran (auto) 0.10 H (0.00-0.03) X10*3/uL Absolute Neuts (auto) 10.5 H (2.0-8.3) x10*3/uL Absolute Nucleated RBC 0.000 0.000 (0.0-0.012) X10*3/uL Nucleated RBC % (auto) 0.0 0.0 (0.0-0.2) /100WBC PT 12.4 12.5 (11.1-13.3) SEC INR 1.0 1.0 (0.9-1.1) APTT 26.1 (26.0-36.8) SEC aPTT Heparin Protocol 24.4 L (53-77.9) SEC Sodium 141 (135-145) mmol/L Potassium 3.6 D (3.3-5.1) mmol/L Chloride 108 (96-108) mmol/L Carbon Dioxide 21 L (22-29) mmol/L Anion Gap 16 (12-20) BUN 21 H (9-16) mg/dL Creatinine 0.66 (0.5-1.4) mg/dL Estim Creat Clear Calc 80.2 Estimated GFR > 60 Random Glucose 108 (60-115) mg/dL Calcium 9.1 (8.4-10.2) mg/dL Magnesium 2.1 (1.6-2.6) mg/dL Total Bilirubin 0.9 (0.0-1.0) mg/dL Direct Bilirubin 0.4 (0.0-0.5) mg/dL AST 26 (5-31) U/L ALT 30 (0-31) U/L Alkaline Phosphatase 155 H (39-117) U/L Troponin I High Sens 17.7 H (<3.5-17.0) ng/L B-Natriuretic Peptide 174 H (<100) pg/mL Total Protein 6.5 (6.5-8.0) g/dL Albumin 3.4 L (3.5-5.0) g/dL Influenza Type A (PCR) NEGATIVE (Negative) Influenza Type B (PCR) NEGATIVE (Negative) RSV RNA Qual (PCR) NEGATIVE (Negative) SARS-CoV-2 RNA (RT-PCR) NEGATIVE (Negative) Independent Interpretation I performed an independent interpretation of an: EKG and Ultrasound (No DVT left lower extremity) Interpretation: Rate: 87 Rhythm:? Normal sinus rhythm [place]:? Normal Normal P waves.? Normal [place].?? Normal QRS complex.?? ST T wave :??No ST elevation, no ST depression, no T-wave inversion qTC: 450 prior studies:? None available for review The study has been interpreted contemporaneously by me. Radiology Impression Discussion of test interpretation with radiology: I have reviewed the radiologist's reading. Radiologist Impression: US/US venous duplex LE LT IMPRESSION: No DVT demonstrated in the left lower extremity. CT/CT angio chest PE protocol IMPRESSION: 1. Single segmental right upper lobe pulmonary embolus. No evidence of right heart strain 2. Bilateral groundglass infiltrates. Independent Historian Clinical information obtained from an independent historian. History obtained from or confirmed by: Spouse External Record Review External record reviewed: Inpatient record Critical Care Time Critical Care Time Critical Care Time: Yes Total Critical Care Time: 45 Attestation: I personally attest to this critical care time spent taking care of the patient exclusive of all other billable procedures was approximately 45 minutes including initial evaluation of patient, ordering tests, acute pulmonary embolism, heparin infusion, EKG interpretation, medical consultation, documentation, re-evaluation. Discharge Plan Discharge Clinical Impression: Acute hypoxemic respiratory failure, Pulmonary embolism, Anemia, Bilateral pneumonia Patient Disposition: Admitted As Inpatient
--- NOTE | 2023-09-23 15:32 | ECG_ITS ---
Test Reason : SOB Blood Pressure : / mmHG Vent. Rate : 087 BPM Atrial Rate : 087 BPM P-R Int : 146 ms QRS Dur : 084 ms QT Int : 374 ms P-R-T Axes : 047 033 040 degrees QTc Int : 450 ms Normal sinus rhythm Normal ECG No previous ECGs available Referred By: Apryl Copeland Electronically Signed By:ASHLEY HERNANDEZ MD
[2023-09-23] MEDS: Albuterol Sulfate 5 MG, Albuterol/Iprat 2.5/0.5MG 3 ML 3 ML INHALE ×2 (15:46→19:12)
[2023-09-23 16:15] LABS: MANUAL DIFF FLAG NO
[2023-09-23 16:27] LABS: Basophils Percent Auto 0.2 % (0-2); Eosinophils Absolute Auto 0.3 X10*3/uL (0.0-0.4); Eosinophils Percent Auto 2.5 % (0-4); Hematocrit 25.6 % (37.0-47.0); Hemoglobin 8.6 g/dl (12.0-16.0); Imm Gran Pct Auto 0.8 % (0.0-0.4); Lymphocytes Absolute Auto 1.1 X10*3/uL (1.2-4.9); Lymphocytes Percent Auto 8.7 % (20-40); Mean Corpuscular HGB Conc 33.6 g/dl (31.0-35.0); Mean Corpuscular Hemoglobin 31.3 pg (27.0-33.0); Mean Corpuscular Volume 93.1 fL (80.0-98.0); Monocytes Absolute Auto 0.8 X10*3/uL (0.1-1.2); Monocytes Percent Auto 6.4 % (2-11); Neutrophils Absolute Auto 10.5 x10*3/uL (2.0-8.3); Neutrophils Percent Auto 81.4 % (45-73); Platelet Count 297 X10*3/uL (160-400); Red Blood Count 2.75 X10*6/uL (4.20-5.50); Red Cell Distribution Width 12.8 % (11.0-16.0); White Blood Count 12.9 X10*3/uL (4.8-10.8)
[2023-09-23 16:33] LABS: Prothrombin Time 12.4 SEC (11.1-13.3)
[2023-09-23 16:34] LABS: Alanine Aminotransferase 30 U/L (0-31); Albumin Level 3.4 g/dL (3.5-5.0); Alkaline Phosphatase 155 U/L (39-117); Anion Gap 16 (12-20); Aspartate Amino Transferase 26 U/L (5-31); Bilirubin Direct 0.4 mg/dL (0.0-0.5); Bilirubin Total 0.9 mg/dL (0.0-1.0); Blood Urea Nitrogen 21 mg/dL (9-16); Calcium 9.1 mg/dL (8.4-10.2); Carbon Dioxide 21 mmol/L (22-29); Chloride 108 mmol/L (96-108); Creatinine Clr Calc Pharmacy 80.2; Estimated Glomerular Filt Rate > 60; Glucose Random 108 mg/dL (60-115); Magnesium 2.1 mg/dL (1.6-2.6); Potassium 3.6 mmol/L (3.3-5.1); Sodium 141 mmol/L (135-145); Total Protein 6.5 g/dL (6.5-8.0)
[2023-09-23 16:36] LABS: Partial Thromboplastin Time 26.1 SEC (26.0-36.8)
[2023-09-23 16:39] LABS: B Type Natriuretic Peptide 174 pg/mL (<100)
[2023-09-23 16:41] LABS: Troponin-I High Sensitivity 17.7 ng/L (<3.5-17.0)
[2023-09-23] MEDS: 0.9 % Sodium Chloride 1,000 ML 999 ML IV (16:42)
[2023-09-23] MEDS: oxyCODONE HCl Immed Release 5 MG TABLET PO ×2 (16:46→20:59)
[2023-09-23 17:17] LABS: Influenza A PCR NEGATIVE (Negative); Influenza B PCR NEGATIVE (Negative); Resp Syncy Virus RNA Qual PCR NEGATIVE (Negative); SARS COV2 PCR INHOUSE NEGATIVE (Negative)
[2023-09-23] MEDS: iohexoL 350 MG/ML 100 ML INFUS..BTL IV (17:58)
[2023-09-23 22:27] LABS: Hematocrit 24.4 % (37.0-47.0); Hemoglobin 8.1 g/dl (12.0-16.0); Mean Corpuscular HGB Conc 33.2 g/dl (31.0-35.0); Mean Corpuscular Hemoglobin 31.3 pg (27.0-33.0); Mean Corpuscular Volume 94.2 fL (80.0-98.0); Platelet Count 302 X10*3/uL (160-400); Red Blood Count 2.59 X10*6/uL (4.20-5.50); Red Cell Distribution Width 12.8 % (11.0-16.0); White Blood Count 11.7 X10*3/uL (4.8-10.8)
[2023-09-23] MEDS: cefTRIAXone sodium 1 GM in 0.9 % Sodium Chloride 50 ML IV (22:27)
[2023-09-23 22:34] LABS: Prothrombin Time 12.5 SEC (11.1-13.3)
[2023-09-23 22:37] LABS: PTT Heparin Drip 24.4 SEC (53-77.9)
[2023-09-23] MEDS: Heparin Sodium,Porcine 5,000 UNIT/ML VIAL 6200 UNIT IVPUSH (22:45)
[2023-09-23] MEDS: Heparin Sodium,Porcine/1/2NS 25,000 UNIT/250 ML IV.SOLN 11.62 UNIT IVCONT (22:46)
--- NOTE | 2023-09-23 22:47 | P.HPHOSP_ITS ---
History of Present Illness Date of Service: 09/23/23 Attending physician on admission: Fernanda Molina Chief Complaint: Shortness of breath Patti Garcia is a 67 years old woman with past medical history significant for COPD -no home O2, hyperlipidemia and essential hypertension presents to the emergency department complaining of worsening shortness of the breath over the last several days. She recently (September 17) underwent a left TKA by Dr. Domínguez and has been taking full-dose aspirin for DVT prophylaxis. She also complained associated cough and wheezing. Shortness on breath worse when she tries to speak. She has an ongoing tobacco smoker however has not smoked since surgery. Denied chest pain, abdominal pain, nausea or vomiting. She does have pain to the left knee, 5/10. Denied alcohol abuse or illicit drug use. In the ED, she was found to have mild tachycardia and tachypnea. Initial BP was 96/45, but most recent 1 is 118/59. There is no fever. Blood workup is remarkable for anemia of 8.1 (HH was 10.3 on September 18). There are no significant electrolyte imbalances. Renal function is normal. LFTs are normal except for elevated alk-phos, 155. Troponin is 17.7 and BNP 174. Viral testing for COVID- 19, RSV and influenza is negative. Left lower extremity venous ultrasound showed no DVT. Chest CTA shows single segmental right upper lobe pulmonary embolism without evidence of right heart strain. There also bilateral ground- glass infiltrates. ECG showed NSR without ischemic changes. ED tx: NS 1 L bolus, oxycodone 10 mg p.o., DuoNeb x2, ceftriaxone 1 g IV, heparin IV infusion. Review of Systems 2 Review of Systems: All 12 systems were reviewed and normal except as noted in HPI. [facility] Medical History Smoker HTN (hypertension) Injury of quadriceps muscle Postoperative nausea Personal history of COVID-19 Osteoarthritis of knees, bilateral Depressed High cholesterol Surgical History History of total right knee replacement (09/11/22) History of left hip replacement Hx of colonoscopy S/P bilateral foot surgery Social History (Updated 09/11/23 @ 14:23 by Fabi Abbe, RN) Household Members: Spouse Housing: Condominium Are you a primary child adolescent care to a significant other at home: No Do you presently have visiting nurse or other home services: No Comment: aware of trip hazard Patient Tobacco Use Status: Current everyday Tobacco user Tobacco use type: Cigarette Cigarette Packs Per Day: 1 Cigarettes Per Day: 20.0 Years Smoked: 32 Smoked in Last 30 Days: Yes e-Cigarette/Vaping Use: Former Use Second Hand Smoke Exposure: No Use of substances other than those prescribed or required for medical reasons: No Advance Directives: No Advance Directives Information Provided: Yes Do you have a plan to hurt others: No Plan service: No Current occupational status: retired Current occupation: rt hand Meds Allergies Allergy/AdvReac Type Severity Reaction Status Date / Time amoxicillin Allergy Mild rash Verified 09/23/23 15:35 Penicillins Allergy Mild Rash Verified 09/23/23 15:35 sulfa drugs Allergy Mild rash Uncoded 09/11/23 14:13 Active Medications: Current Medications Acetaminophen (Acetaminophen 325 Mg Tablet) 650 mg PO Q6H PRN PRN Reason: Fever Acetaminophen (Acetaminophen 325 Mg Tablet) 650 mg PO Q6H PRN PRN Reason: Pain, Mild (Pain Scale 1-3) Acetaminophen (Acetaminophen 325 Mg Tablet) 650 mg PO Q6H PRN PRN Reason: Headache Albuterol/Ipratropium (Albuterol/Iprat 2.5/0.5mg 3 Ml Ampul.Neb) 3 ml INHALE RQ4H WHILE AWAKE [facility] Calcium Carbonate (Calcium Carbonate 750 Mg Tab.Chew) 750 mg PO Q6H PRN PRN Reason: Heartburn Heparin Sodium (Porcine) (Heparin Sodium,Porcine 5,000 Unit/Ml Vial) 3,300 unit 40 unit/kg (3300 unit) IVPUSH PROTOCOL BOLUS PRN; Protocol PRN Reason: 40 unit/kg - Heparin Protocol Heparin Sodium (Porcine) (Heparin Sodium,Porcine 5,000 Unit/Ml Vial) 6,600 unit 80 unit/kg (6600 unit) IVPUSH PROTOCOL BOLUS PRN; Protocol PRN Reason: 80 unit/kg - Heparin Protocol Heparin Sodium/Sodium Chloride (Heparin Sodium,Porcine/1/2ns) 25,000 unit in 250 mls @ 0 mls/hr IVCONT .Q0M [facility]; Protocol Azithromycin 500 mg/ Sodium (Chloride) 250 mls @ 125 mls/hr IV Q24H [facility] Ceftriaxone Sodium 1 gm/ (Sodium Chloride) 100 mls @ 200 mls/hr IV Q24H [facility] Magnesium Hydroxide (Milk Of Magnesia 30 Ml Oral.Susp) 30 ml PO DAILY PRN PRN Reason: Constipation Melatonin (Melatonin 3 Mg Tablet) 6 mg PO BEDTIME PRN PRN Reason: Insomnia Polyethylene Glycol (Polyethylene Glycol 3350 17 Gm Powd.Pack) 17 gm PO DAILY PRN PRN Reason: Constipation Sodium Chloride (0.9 % Sodium Chloride Flush 3 Ml Syringe) 3 ml IVFLUSH QSHIFT [facility] Home Medications ?Medication ?Instructions ?Recorded ?Confirmed ?Last Taken ?Type atorvastatin 10 mg tablet 10 mg PO BEDTIME 05/24/22 09/18/23 09/17/23 History fluoxetine 40 mg capsule 80 mg PO DAILY 08/30/22 09/11/23 09/18/23 06:20 History amlodipine 2.5 mg tablet 2.5 mg PO DAILY 09/11/23 09/11/23 09/18/23 06:20 History aripiprazole 5 mg tablet 5 mg PO DAILY 09/11/23 09/11/23 09/18/23 06:20 History aspirin 81 mg chewable tablet 81 mg PO DAILY 09/11/23 09/11/23 09/15/23 History Physical Exam 2 Vital Signs and Narrative: Vital Signs: Last Vital Signs Temp 97 F 09/23/23 19:45 Pulse 104 H 09/23/23 22:09 Resp 24 H 09/23/23 22:09 BP 118/59 L 09/23/23 22:09 Pulse Ox 94 09/23/23 22:09 O2 Del Method Nasal Cannula 09/23/23 22:09 O2 Flow Rate 2 09/23/23 22:09 BMI result Body Mass Index 32.4 Constitutional - Awake and Alert, No apparent distress. Nasal cannula in place. Afebrile HEENT - Pupils equally round, EOMI. Normal sclerae Heart - tachycardic. No murmurs. Lungs - Normal lung expansion, Normal respiratory effort, No respiratory distress. Tachypnea. Bilateral end expiratory wheezes. Abdomen - non tenderness. Extremities - left knee: edema + mild effusion. Surgical bandage in place and clean. LLE edema. Distal pulses 2+. Right lower extremity normal. Musculoskeletal - Normal inspection, normal ROM Skin - Warm/Dry Neurological - Alert & oriented x3. No focal weakness grossly noted. Psychological - Appropriate affect Results Labs 09/23/23 22:10 09/23/23 16:08 Labs: Laboratory Results - last 24 hr 09/23/23 09/23/23 16:08 22:10 MCV 93.1 94.2 MCH 31.3 31.3 MCHC 33.6 33.2 RDW 12.8 12.8 Plt Count 297 302 MPV 10.0 10.0 Immature Gran % (Auto) 0.8 H Neut % (Auto) 81.4 H Lymph % (Auto) 8.7 L [place] % (Auto) 6.4 Eos % (Auto) 2.5 Baso % (Auto) 0.2 Lymph # (Auto) 1.1 L [place] # (Auto) 0.8 Eos # (Auto) 0.3 Baso # (Auto) 0.0 Abs Immat Gran (auto) 0.10 H Absolute Neuts (auto) 10.5 H Absolute Nucleated RBC 0.000 0.000 Nucleated RBC % (auto) 0.0 0.0 PT 12.4 12.5 INR 1.0 1.0 APTT 26.1 aPTT Heparin Protocol 24.4 L Anion Gap 16 Estim Creat Clear Calc 80.2 Estimated GFR > 60 Random Glucose 108 Calcium 9.1 Magnesium 2.1 Total Bilirubin 0.9 Direct Bilirubin 0.4 AST 26 ALT 30 Alkaline Phosphatase 155 H Troponin I High Sens 17.7 H B-Natriuretic Peptide 174 H Total Protein 6.5 Albumin 3.4 L Influenza Type A (PCR) NEGATIVE Influenza Type B (PCR) NEGATIVE RSV RNA Qual (PCR) NEGATIVE SARS-CoV-2 RNA (RT-PCR) NEGATIVE Imaging Radiologist's Impressions: Impressions Venous Duplex 09/23/23 17:09 IMPRESSION: No DVT demonstrated in the left lower extremity. Chest CTA 09/23/23 18:11 IMPRESSION: 1. Single segmental right upper lobe pulmonary embolus. No evidence of right heart strain 2. Bilateral groundglass infiltrates. VTE: positive. Assessment and Plan (1) Hypoxic respiratory failure: Qualifiers: Chronicity: acute Qualified Code(s): J96.01 - Acute respiratory failure with hypoxia Status: Acute (2) Acute exacerbation of chronic obstructive pulmonary disease: Status: Acute (3) Pulmonary embolism: Qualifiers: Pulmonary embolism type: unspecified Chronicity: acute Acute cor pulmonale presence: without acute cor pulmonale Qualified Code(s): I26.99 - Other pulmonary embolism without acute cor pulmonale Status: Acute (4) Anemia: Qualifiers: Anemia type: other cause Other causes of anemia: acute posthemorrhagic Qualified Code(s): D62 - Acute posthemorrhagic anemia Status: Acute Plan Patti Garcia is a 67 years old woman admitted with: * Hypoxic respiratory failure secondary to acute exacerbation of COPD due to bilateral pneumonia and left upper lobe pulmonary embolism. Admit to hospitalist service. Telemetry. Pulse oximetry. Supplemental oxygen to keep O2 sats > 90%. Bronchodilator therapy. IV steroids. Continue empiric IV antibiotic therapy with ceftriaxone and azithromycin. Continue heparin IV infusion per protocol. Continue aspirin. * Anemia, acute on chronic. Likely secondary to recent surgery. Continue to monitor. * Hyperlipidemia. Continue statin. * Essential hypertension. Continue amlodipine. * Depression. Continue aripiprazole and fluoxetine. * Recent s/p left TKA. Pain control with acetaminophen and/or oxycodone. Code status: Full DVT prophylaxis: Heparin IV infusion GI prophylaxis: PPI. Patient will need hospitalization for at least 2 midnights for hypoxic respiratory failure therapy with supplemental oxygen, heparin IV infusion, bronchodilator therapy, IV antibiotics and steroids. Quality Stroke Does the patient have a stroke diagnosis?: No VTE Prior VTE?: No VTE Risk Level:: Medical - moderate - high VTE Device Contraindication: Treatment Not Indicated VTE Drug Contraindication: N/A - Med Ordered
[2023-09-23] MEDS: methylPREDNISolone Sod Succ 125 MG/2 ML VIAL 80 MG IVPUSH (22:55)
[2023-09-23] MEDS: Azithromycin 500 MG in 0.9 % Sodium Chloride 250 ML 125 MG IV (22:56)
[2023-09-23] MEDS: Albuterol/Iprat 2.5/0.5MG 3 ML AMPUL.NEB INHALE (23:11)
[2023-09-24] VITALS (11 sets, daily range): BP systolic 108–148; BP diastolic 54–71; PULSE 83–100; RESP 16–20; TEMP 36–36.9; O2SAT 92–94
[2023-09-24] MEDS: oxyCODONE HCl Immed Release 5 MG TABLET PO ×2 (03:02→13:18)
[2023-09-24] MEDS: Pantoprazole Sodium 40 MG/10 ML VIAL IVPUSH (06:23)
[2023-09-24 06:27] LABS: INTERNATIONAL NORM RATIO 1.1 (0.9-1.1); Prothrombin Time 13.1 SEC (11.1-13.3)
[2023-09-24 06:29] LABS: PTT Heparin Drip 57.9 SEC (53-77.9)
[2023-09-24 06:31] LABS: Basophils Percent Auto 0.1 % (0-2); Eosinophils Percent Auto 0.1 % (0-4); Hematocrit 24.5 % (37.0-47.0); Hemoglobin 8.2 g/dl (12.0-16.0); Imm Gran Abs Auto 0.07 X10*3/uL (0.00-0.03); Imm Gran Pct Auto 0.7 % (0.0-0.4); Lymphocytes Absolute Auto 0.4 X10*3/uL (1.2-4.9); Lymphocytes Percent Auto 3.7 % (20-40); MANUAL DIFF FLAG SCAN; Mean Corpuscular HGB Conc 33.5 g/dl (31.0-35.0); Mean Corpuscular Hemoglobin 31.2 pg (27.0-33.0); Mean Corpuscular Volume 93.2 fL (80.0-98.0); Mean Platelet Volume 10.3 fL (9.4-12.3); Monocytes Absolute Auto 0.1 X10*3/uL (0.1-1.2); Monocytes Percent Auto 1.3 % (2-11); Neutrophils Absolute Auto 9.5 x10*3/uL (2.0-8.3); Neutrophils Percent Auto 94.1 % (45-73); Platelet Count 267 X10*3/uL (160-400); Red Blood Count 2.63 X10*6/uL (4.20-5.50); Red Cell Distribution Width 12.9 % (11.0-16.0); SCAN SMEAR FLAG 1; White Blood Count 10.1 X10*3/uL (4.8-10.8)
[2023-09-24 07:06] LABS: SLIDE REVIEW VERIFIED
[2023-09-24] MEDS: Albuterol/Iprat 2.5/0.5MG 3 ML AMPUL.NEB INHALE ×3 (07:34→19:06)
--- NOTE | 2023-09-24 08:23 | PHA.MEDREC ---
Pharmacy Consult ? Medication Reconciliation Pharmacy has completed the medication reconciliation. Spoke to pt to confirm meds.
[2023-09-24] MEDS: 0.9 % Sodium Chloride Flush 3 ML SYRINGE IVFLUSH ×2 (09:41→15:21)
[2023-09-24] MEDS: FLUoxetine HCl 20 MG CAPSULE 80 MG PO (09:42)
[2023-09-24] MEDS: ARIPiprazole 5 MG TABLET PO (09:47)
[2023-09-24] MEDS: Docusate Sodium 100 MG CAPSULE PO ×2 (09:55→21:52)
--- NOTE | 2023-09-24 10:19 | MHC.CM.PN ---
IMM 09/24/23, PT W/PE AND S/P L TKA ONE WK AGO, CURRENTLY ON HEPARIN DRIP. CM MET W/PT WHO REPORTS SHE IS FULLY INDEP AT BASELINE, USES A WALKER D/T TKA AND ALSO HAS A CANE AT HOME, [facility] FOR HOME PT AND REF SENT, [facility] AWARE PT MAY NEED SN ADDED AND WILL FOLLOW. PT VERIFIES PCP/HCP ON FILE CORRECT.
[2023-09-24 12:14] LABS: PTT Heparin Drip 53.5 SEC (53-77.9)
[2023-09-24] MEDS: Acetaminophen 325 MG TABLET 650 MG PO (12:43)
[2023-09-24] MEDS: diphenhydrAMINE HCL 25 MG CAPSULE PO (12:43)
--- NOTE | 2023-09-24 14:39 | P.PNIM_ITS ---
Subjective Subjective Date of Service: 09/24/23 Interval History: anemia ,hypoxia Review of Systems Patient still short of breath with minimal exertion. Denies any chest pain, no fever Physical Exam 2 Vital Signs: Vital Signs: Last Vital Signs Temp 98.0 F 09/24/23 12:44 Pulse 98 09/24/23 12:44 Resp 18 09/24/23 12:44 BP 113/58 L 09/24/23 12:44 Pulse Ox 92 09/24/23 10:54 O2 Del Method Nasal Cannula 09/24/23 10:54 O2 Flow Rate 2 09/24/23 10:54 BMI result Body Mass Index 32.4 Appearance: Alert.? Oriented X3.. cvs: rrr, [id number] , no murmur res: clear to auscultation ,no rhonchii or wheezing abd: no rebound or guarding ,nt, bs present. ext pulses present , no cyanosis. neuro: axo3 , nonfocal. Objective Data Active Medications Acetaminophen (Acetaminophen 325 Mg Tablet) 650 mg PO Q6H PRN PRN Reason: Fever Acetaminophen (Acetaminophen 325 Mg Tablet) 650 mg PO Q6H PRN PRN Reason: Pain, Mild (Pain Scale 1-3) Acetaminophen (Acetaminophen 325 Mg Tablet) 650 mg PO Q6H PRN PRN Reason: Headache Albuterol/Ipratropium (Albuterol/Iprat 2.5/0.5mg 3 Ml Ampul.Neb) 3 ml INHALE RQ4H WHILE AWAKE [facility] Last Admin: 09/24/23 11:28 Dose: 3 ml Documented By: GER Aripiprazole (Aripiprazole 5 Mg Tablet) 5 mg PO DAILY [facility] Last Admin: 09/24/23 09:47 Dose: 5 mg Documented By: FELIX Atorvastatin Calcium (Atorvastatin Calcium 10 Mg Tablet) 10 mg PO BEDTIME [facility] Calcium Carbonate (Calcium Carbonate 750 Mg Tab.Chew) 750 mg PO Q6H PRN PRN Reason: Heartburn Docusate Sodium (Docusate Sodium 100 Mg Capsule) 100 mg PO BID [facility] Last Admin: 09/24/23 09:55 Dose: 100 mg Documented By: FELIX Fluoxetine HCl (Fluoxetine Hcl 20 Mg Capsule) 80 mg PO DAILY [facility] Last Admin: 09/24/23 09:42 Dose: 80 mg Documented By: HO.GUILMAT Heparin Sodium (Porcine) (Heparin Sodium,Porcine 5,000 Unit/Ml Vial) 3,300 unit 40 unit/kg (3300 unit) IVPUSH PROTOCOL BOLUS PRN; Protocol PRN Reason: 40 unit/kg - Heparin Protocol Heparin Sodium (Porcine) (Heparin Sodium,Porcine 5,000 Unit/Ml Vial) 6,600 unit 80 unit/kg (6600 unit) IVPUSH PROTOCOL BOLUS PRN; Protocol PRN Reason: 80 unit/kg - Heparin Protocol Heparin Sodium/Sodium Chloride (Heparin Sodium,Porcine/1/2ns) 25,000 unit in 250 mls @ 0 mls/hr IVCONT .Q0M [facility]; Protocol Last Titration: 09/24/23 12:30 Dose: 14 units/kg/hr, 11.62 mls/hr Documented By: FELIX Co-signed By: DOMINGA Azithromycin 500 mg/ Sodium (Chloride) 250 mls @ 125 mls/hr IV Q24H [facility] Last Infusion: 09/24/23 00:54 Dose: Infused Documented By: DEO Ceftriaxone Sodium 1 gm/ (Sodium Chloride) 100 mls @ 200 mls/hr IV Q24H [facility] Magnesium Hydroxide (Milk Of Magnesia 30 Ml Oral.Susp) 30 ml PO DAILY PRN PRN Reason: Constipation Melatonin (Melatonin 3 Mg Tablet) 6 mg PO BEDTIME PRN PRN Reason: Insomnia Oxycodone HCl (Oxycodone Hcl Immed Release 5 Mg Tablet) 5 mg PO Q4H PRN PRN Reason: moderate or severe pain Last Admin: 09/24/23 13:18 Dose: 5 mg Documented By: FELIX Pantoprazole Sodium (Pantoprazole Sodium 40 Mg/10 Ml Vial) 40 mg IVPUSH DAILY@0630 [facility] Last Admin: 09/24/23 06:23 Dose: 40 mg Documented By: EMANUEL Polyethylene Glycol (Polyethylene Glycol 3350 17 Gm Powd.Pack) 17 gm PO DAILY PRN PRN Reason: Constipation Sodium Chloride (0.9 % Sodium Chloride Flush 3 Ml Syringe) 3 ml IVFLUSH QSHIFT [facility] Last Admin: 09/24/23 09:41 Dose: 3 ml Documented By: FELIX Labs 09/24/23 06:13 09/23/23 16:08 Labs: Laboratory Results - last 24 hr 0509/23/23 09/24/23 16:08 22:10 06:13 MCV 93.1 94.2 93.2 MCH 31.3 31.3 31.2 MCHC 33.6 33.2 33.5 RDW 12.8 12.8 12.9 Plt Count 297 302 267 MPV 10.0 10.0 10.3 Immature Gran % (Auto) 0.8 H 0.7 H Neut % (Auto) 81.4 H 94.1 H Lymph % (Auto) 8.7 L 3.7 L [place] % (Auto) 6.4 1.3 L Eos % (Auto) 2.5 0.1 Baso % (Auto) 0.2 0.1 Lymph # (Auto) 1.1 L 0.4 L [place] # (Auto) 0.8 0.1 Eos # (Auto) 0.3 0.0 Baso # (Auto) 0.0 0.0 Abs Immat Gran (auto) 0.10 H 0.07 H Absolute Neuts (auto) 10.5 H 9.5 H Absolute Nucleated RBC 0.000 0.000 0.000 Nucleated RBC % (auto) 0.0 0.0 0.0 Smear Tech's Comments VERIFIED PT 12.4 12.5 13.1 INR 1.0 1.0 1.1 APTT 26.1 aPTT Heparin Protocol 24.4 L 57.9 D Anion Gap 16 Estim Creat Clear Calc 80.2 Estimated GFR > 60 Random Glucose 108 Calcium 9.1 Magnesium 2.1 Total Bilirubin 0.9 Direct Bilirubin 0.4 AST 26 ALT 30 Alkaline Phosphatase 155 H Troponin I High Sens 17.7 H B-Natriuretic Peptide 174 H Total Protein 6.5 Albumin 3.4 L Influenza Type A (PCR) NEGATIVE Influenza Type B (PCR) NEGATIVE RSV RNA Qual (PCR) NEGATIVE SARS-CoV-2 RNA (RT-PCR) NEGATIVE Blood Type Antibody Screen Crossmatch 09/24/23 09/24/23 08:44 11:49 MCV MCH MCHC RDW Plt Count MPV Immature Gran % (Auto) Neut % (Auto) Lymph % (Auto) [place] % (Auto) Eos % (Auto) Baso % (Auto) Lymph # (Auto) [place] # (Auto) Eos # (Auto) Baso # (Auto) Abs Immat Gran (auto) Absolute Neuts (auto) Absolute Nucleated RBC Nucleated RBC % (auto) Smear Tech's Comments PT INR APTT aPTT Heparin Protocol 53.5 Anion Gap Estim Creat Clear Calc Estimated GFR Random Glucose Calcium Magnesium Total Bilirubin Direct Bilirubin AST ALT Alkaline Phosphatase Troponin I High Sens B-Natriuretic Peptide Total Protein Albumin Influenza Type A (PCR) Influenza Type B (PCR) RSV RNA Qual (PCR) SARS-CoV-2 RNA (RT-PCR) Blood Type A Negative Antibody Screen NEGATIVE Crossmatch See Detail Assessment and Plan (1) Bilateral pneumonia: Status: Acute (2) Pulmonary embolism: Status: Acute (3) Anemia: Status: Acute Plan 67 years old woman admitted with: Hypoxic respiratory failure secondary to acute exacerbation of COPD due to bilateral pneumonia and left upper lobe pulmonary embolism. sob seems similar ,but no wheezing continue Telemetry. Pulse oximetry. nebs , Continue empiric IV antibiotic therapy with ceftriaxone and azithromycin,heparin IV infusion per protocol. avoid steriods and asprin due to anemia /already on iv heparin drip. Anemia, acute on chronic. Likely secondary to recent surgery. h/h in range 8.2 1 prbc added since patient sob. Continue to monitor. Hyperlipidemia. Continue statin. Essential hypertension. Continue amlodipine. Depression. Continue aripiprazole and fluoxetine. Recent s/p left TKA. Pain control with acetaminophen and/or oxycodone. DVT prophylaxis: Heparin IV infusion GI prophylax: PPI. Patient will need hospitalizationfor hypoxic respiratory failure therapy with supplemental oxygen, heparin IV infusion, bronchodilator therapy, IV antibiotics and prbc . Quality Stroke Does the patient have a stroke diagnosis?: No VTE Prior VTE?: No VTE Risk Level:: Medical - moderate - high VTE Device Contraindication: Treatment Not Indicated VTE Drug Contraindication: N/A - Med Ordered
[2023-09-24] MEDS: Heparin Sodium,Porcine/1/2NS 25,000 UNIT/250 ML IV.SOLN 11.62 UNIT IVCONT (18:40)
[2023-09-24 19:06] LABS: PTT Heparin Drip 37.6 SEC (53-77.9)
[2023-09-24] MEDS: Heparin Sodium,Porcine 5,000 UNIT/ML VIAL 3300 UNIT IVPUSH (19:34)
[2023-09-24] MEDS: Azithromycin 500 MG in 0.9 % Sodium Chloride 250 ML 125 MG IV (21:49)
[2023-09-24] MEDS: Atorvastatin Calcium 10 MG TABLET PO (21:53)
[2023-09-25] VITALS (10 sets, daily range): BP systolic 139–158; BP diastolic 66–79; PULSE 86–94; RESP 18–20; TEMP 36.3–36.8; O2SAT 92–95
[2023-09-25] MEDS: 0.9 % Sodium Chloride Flush 3 ML SYRINGE IVFLUSH ×4 (00:13→22:29)
[2023-09-25] MEDS: oxyCODONE HCl Immed Release 5 MG TABLET PO ×4 (00:16→22:25)
[2023-09-25 01:02] LABS: PTT Heparin Drip 68.5 SEC (53-77.9)
[2023-09-25] MEDS: methylPREDNISolone Sod Succ 40 MG/ML VIAL IVPUSH ×2 (03:44→17:12)
[2023-09-25] MEDS: guaiFENesin DM 600/30 1 TAB TAB.ER.12H 2 TAB PO (03:44)
[2023-09-25] MEDS: Albuterol Sulfate (0.083%) 2.5 MG/3 ML VIAL.NEB INHALE (03:56)
[2023-09-25] MEDS: Pantoprazole Sodium 40 MG/10 ML VIAL IVPUSH (05:51)
[2023-09-25 06:36] LABS: Hematocrit 28.2 % (37.0-47.0); Hemoglobin 9.6 g/dl (12.0-16.0)
[2023-09-25 06:38] LABS: PTT Heparin Drip 70.3 SEC (53-77.9)
[2023-09-25] MEDS: Albuterol/Iprat 2.5/0.5MG 3 ML AMPUL.NEB INHALE ×3 (07:39→18:55)
[2023-09-25] MEDS: ARIPiprazole 5 MG TABLET PO (08:07)
[2023-09-25] MEDS: Docusate Sodium 100 MG CAPSULE PO ×2 (08:07→22:25)
[2023-09-25] MEDS: FLUoxetine HCl 20 MG CAPSULE 80 MG PO (08:07)
[2023-09-25] MEDS: cefTRIAXone sodium 1 GM in 0.9 % Sodium Chloride 100 ML IV (08:15)
[2023-09-25] MEDS: guaiFEN/Codeine SF 200/20/10ML 10 ML LIQUID PO ×4 (10:27→22:26)
[2023-09-25] MEDS: amLODIPine Besylate 2.5 MG TABLET PO (10:27)
--- NOTE | 2023-09-25 11:44 | MHC.CM.PN ---
EMR REVIEWED, PER HOSPITALIST PT HYPOXIC, SOB W/COUGH OVER NOC, NO PLAN FOR DC AT THIS TIME, CM WILL CONT TO FOLLOW DC NEEDS.
[2023-09-25] MEDS: Heparin Sodium,Porcine/1/2NS 25,000 UNIT/250 ML IV.SOLN 13.28 UNIT IVCONT (13:37)
--- NOTE | 2023-09-25 15:00 | HO.PM.IMPN ---
Subjective Subjective Date of Service: 09/25/23 Interval History: AHRF,anemia ,pneumonia Review of Systems Of breath seems similar to yesterday-get more short of breath with minimal exertion Denies any chest pain Aggressive cough Physical Exam Vital Signs: Vital Signs: Last Vital Signs Temp 97.3 F 09/25/23 11:10 Pulse 86 09/25/23 11:27 Resp 18 09/25/23 11:27 BP 141/72 H 09/25/23 11:10 Pulse Ox 94 09/25/23 11:10 O2 Del Method Nasal Cannula 09/25/23 11:10 O2 Flow Rate 2 09/25/23 11:10 BMI result Body Mass Index 32.4 Appearance: Alert.? Oriented X3. cvs: rrr, [id number] , no murmur res:air entry somewhat diminshed ,has few wheezes abd: no rebound or guarding ,nt, bs present. ext pulses present , no cyanosis. neuro: axo3 , nonfocal. Objective Data Active Medications Acetaminophen (Acetaminophen 325 Mg Tablet) 650 mg PO Q6H PRN PRN Reason: Pain, Mild (Pain Scale 1-3) Albuterol Sulfate (Albuterol Sulfate (0.083%) 2.5 Mg/3 Ml Vial.Neb) 2.5 mg INHALE Q2H PRN PRN Reason: Shortness of Breath/Wheezing Last Admin: 09/25/23 03:56 Dose: 2.5 mg Documented By: DELMIS Albuterol/Ipratropium (Albuterol/Iprat 2.5/0.5mg 3 Ml Ampul.Neb) 3 ml INHALE RQ4H WHILE AWAKE [facility] Last Admin: 09/25/23 11:26 Dose: 3 ml Documented By: DAVION Amlodipine Besylate (Amlodipine Besylate 2.5 Mg Tablet) 2.5 mg PO DAILY [facility]; Protocol Last Admin: 09/25/23 10:27 Dose: 2.5 mg Documented By: MOISES Aripiprazole (Aripiprazole 5 Mg Tablet) 5 mg PO DAILY [facility] Last Admin: 09/25/23 08:07 Dose: 5 mg Documented By: MOISES Atorvastatin Calcium (Atorvastatin Calcium 10 Mg Tablet) 10 mg PO BEDTIME [facility] Last Admin: 09/24/23 21:53 Dose: 10 mg Documented By: FELIX Calcium Carbonate (Calcium Carbonate 750 Mg Tab.Chew) 750 mg PO Q6H PRN PRN Reason: Heartburn Docusate Sodium (Docusate Sodium 100 Mg Capsule) 100 mg PO BID [facility] Last Admin: 09/25/23 08:07 Dose: 100 mg Documented By: MOISES Fluoxetine HCl (Fluoxetine Hcl 20 Mg Capsule) 80 mg PO DAILY [facility] Last Admin: 09/25/23 08:07 Dose: 80 mg Documented By: MOISES Guaifenesin/Codeine Phosphate (Guaifen/Codeine Sf 200/20/10ml 10 Ml Liquid) 10 ml PO Q4H [facility] Last Admin: 09/25/23 13:41 Dose: 10 ml Documented By: MOISES Heparin Sodium (Porcine) (Heparin Sodium,Porcine 5,000 Unit/Ml Vial) 3,300 unit 40 unit/kg (3300 unit) IVPUSH PROTOCOL BOLUS PRN; Protocol PRN Reason: 40 unit/kg - Heparin Protocol Last Admin: 09/24/23 19:34 Dose: 3,300 unit Documented By: FELIX Heparin Sodium (Porcine) (Heparin Sodium,Porcine 5,000 Unit/Ml Vial) 6,600 unit 80 unit/kg (6600 unit) IVPUSH PROTOCOL BOLUS PRN; Protocol PRN Reason: 80 unit/kg - Heparin Protocol Heparin Sodium/Sodium Chloride (Heparin Sodium,Porcine/1/2ns) 25,000 unit in 250 mls @ 0 mls/hr IVCONT .Q0M [facility]; Protocol Last Admin: 09/25/23 13:37 Dose: 16 units/kg/hr, 13.28 mls/hr Documented By: MOISES Co-signed By: STEVIE Azithromycin 500 mg/ Sodium (Chloride) 250 mls @ 125 mls/hr IV Q24H [facility] Last Infusion: 09/25/23 00:14 Dose: Infused Documented By: EDITH Ceftriaxone Sodium 1 gm/ (Sodium Chloride) 100 mls @ 200 mls/hr IV Q24H [facility] Last Infusion: 09/25/23 09:00 Dose: Infused Documented By: MOISES Magnesium Hydroxide (Milk Of Magnesia 30 Ml Oral.Susp) 30 ml PO DAILY PRN PRN Reason: Constipation Melatonin (Melatonin 3 Mg Tablet) 6 mg PO BEDTIME PRN PRN Reason: Insomnia Methylprednisolone Sodium Succinate (Methylprednisolone Sod Succ 40 Mg/Ml Vial) 40 mg IVPUSH Q12H [facility] Last Admin: 09/25/23 03:44 Dose: 40 mg Documented By: EDITH Oxycodone HCl (Oxycodone Hcl Immed Release 5 Mg Tablet) 5 mg PO Q4H PRN PRN Reason: moderate or severe pain Last Admin: 09/25/23 13:41 Dose: 5 mg Documented By: MOISES Pantoprazole Sodium (Pantoprazole Sodium 40 Mg/10 Ml Vial) 40 mg IVPUSH DAILY@0630 [facility] Last Admin: 09/25/23 05:51 Dose: 40 mg Documented By: EDITH Polyethylene Glycol (Polyethylene Glycol 3350 17 Gm Powd.Pack) 17 gm PO DAILY PRN PRN Reason: Constipation Sodium Chloride (0.9 % Sodium Chloride Flush 3 Ml Syringe) 3 ml IVFLUSH QSHIFT [facility] Last Admin: 09/25/23 08:08 Dose: 3 ml Documented By: MOISES Labs 09/25/23 05:55 09/23/23 16:08 Labs: Laboratory Results - last 24 hr 09/24/23 09/24/23 09/25/23 08:44 18:34 00:36 Hold Purple Top aPTT Heparin Protocol 37.6 L D 68.5 D Crossmatch See Detail 09/25/23 05:55 Hold Purple Top SEE NOTE aPTT Heparin Protocol 70.3 Crossmatch Assessment and Plan (1) Bilateral pneumonia: Status: Acute (2) Anemia: Status: Acute (3) Pulmonary embolism: Status: Acute (4) Acute hypoxemic respiratory failure: Status: Acute Plan 67 years old woman admitted with: AHRF secondary to acute exacerbation of COPD due to bilateral pneumonia and left upper lobe pulmonary embolism. sob seems similar ,but no wheezing continue Telemetry. Pulse oximetry. nebs , Continue empiric IV antibiotic therapy with ceftriaxone and azithromycin,loratidine ,hycodan,heparin IV infusion per protocol. avoid asprin due to anemia /already on iv heparin drip. Anemia, acute on chronic. Likely secondary to recent surgery. h/h in range 8.2 s/p 1 prbc -h/h 9.6/28.2 Continue to monitor h/h. Hyperlipidemia. Continue statin. Essential hypertension. Continue amlodipine. Depression. Continue aripiprazole and fluoxetine. Recent s/p left TKA. Pain control with acetaminophen and/or oxycodone. DVT prophylaxis: Heparin IV infusion GI prophylax: PPI. Patient will need hospitalization for acute hypoxic respiratory failure therapy with supplemental oxygen, heparin IV infusion, bronchodilator therapy, IV antibiotics and moniter h/h . Quality Stroke Does the patient have a stroke diagnosis?: No VTE Prior VTE?: No VTE Risk Level:: Medical - moderate - high VTE Device Contraindication: Treatment Not Indicated VTE Drug Contraindication: N/A - Med Ordered
--- NOTE | 2023-09-25 15:02 | P.CDIM_ITS ---
PROVIDER RESPONSE TEXT: To clarify, the appropriate diagnosis supported by the clinical indicators: Respiratory failure with hypoxia: AHRF sec to copd/left pulm embolism QUERY TEXT: PHYSICIAN'S DOCUMENTATION REQUEST Date of Query: 09/25/2023 08:23 AM EDT Patient Name: Patti Garcia Admit Date: 09/24/2023 Dear Maximo Chicas, A review of the medical record indicates additional documentation may be needed. Please review below and update the documentation accordingly. Clinical Indicators: Progress notes under the Plan: Hypoxic respiratory failure 2nd to acute exacerbation of COPD due to l eft pneumonia. RR 24 Pulse ox 83 HR 110 2 liters NC short of breath, cough If possible, please further clarify the acuity of respiratory failure: Respiratory failure with hypoxia Please specify acuity as Acute, Chronic, or Acute on chronic if known Other (explain) Clinically unable to determine (explain) Thank you, Jolanta Ennis, CCS, CDIS Use of terms such as suspected, likely, concern for, or probable (associated with a specific diagnosi s that is being evaluated, monitored, or treated as if it exists) are acceptable and can be coded in the inpatient se tting, when documented at the time of discharge. Please use your independent medical judgment in providing your response. THIS QUERY IS PART OF THE PERMANENT MEDICAL RECORD
--- NOTE | 2023-09-25 15:26 | PM.PNORT ---
Subjective Subjective Date of Service: 09/25/23 Interval history: Patient resting comfortably in bed. Denies CP Reports SOB is better No left knee pain or complaints Physical Exam Vital Signs: Vital Signs: Last Vital Signs Temp 98.2 F 09/25/23 15:20 Pulse 89 09/25/23 15:20 Resp 19 09/25/23 15:20 BP 146/66 H 09/25/23 15:20 Pulse Ox 95 09/25/23 15:20 O2 Del Method Nasal Cannula 09/25/23 15:20 O2 Flow Rate 2 09/25/23 11:10 BMI result Body Mass Index 32.4 Const: General: cooperative, healthy appearing and no acute distress Resp: Effort & Inspection: normal respiratory effort and able to speak in complete sentences Cardio: Rate: regular rate Peripheral pulses: Peripheral pulses 2+ throughout GI: Palpation (GI): Soft to palpation Skin: Lesions: no lesions Rashes: no rashes Extrem: Other: Left knee Aquacel is intact. Able to perform SLR. Able to dorsi/plantar flex. NVI. Procedures Date of Service Date of Service: 09/25/23 Progress Note: A&P Assessment and plan (1) Bilateral pneumonia: Status: Acute (2) Anemia: Status: Acute (3) Pulmonary embolism: Status: Acute (4) Acute hypoxemic respiratory failure: Status: Acute (5) Pulmonary embolism: Status: Acute (6) Acute exacerbation of chronic obstructive pulmonary disease: Status: Acute (7) Hypoxic respiratory failure: Status: Acute (8) Osteoarthritis of left knee: Status: Acute Assessment and Plan: Continue LTKA rehab protocol ROM Gait training Continued treatment from hospitalists for PE, PNA, COPD Time Spent With Patient Time: Total time managing care of this patient today ____ minutes. Quality Stroke Does the patient have a stroke diagnosis?: No VTE Prior VTE?: No VTE Risk Level:: Medical - moderate - high VTE Device Contraindication: Treatment Not Indicated VTE Drug Contraindication: N/A - Med Ordered
[2023-09-25] MEDS: Atorvastatin Calcium 10 MG TABLET PO (22:25)
[2023-09-25] MEDS: Azithromycin 500 MG in 0.9 % Sodium Chloride 250 ML 125 MG IV (22:27)
[2023-09-26] VITALS (14 sets, daily range): BP systolic 114–149; BP diastolic 55–73; PULSE 77–92; RESP 16–20; TEMP 36.1–36.3; O2SAT 84–99
[2023-09-26] MEDS: guaiFEN/Codeine SF 200/20/10ML 10 ML LIQUID PO ×6 (01:45→20:05)
[2023-09-26] MEDS: methylPREDNISolone Sod Succ 40 MG/ML VIAL IVPUSH (04:02)
[2023-09-26] MEDS: oxyCODONE HCl Immed Release 5 MG TABLET PO ×3 (04:02→20:06)
[2023-09-26] MEDS: Pantoprazole Sodium 40 MG/10 ML VIAL IVPUSH (06:04)
[2023-09-26 06:50] LABS: PTT Heparin Drip 88.9 SEC (53-77.9)
[2023-09-26] MEDS: Albuterol/Iprat 2.5/0.5MG 3 ML AMPUL.NEB INHALE ×2 (07:41→15:39)
[2023-09-26] MEDS: cefTRIAXone sodium 1 GM in 0.9 % Sodium Chloride 100 ML IV (08:36)
[2023-09-26] MEDS: 0.9 % Sodium Chloride Flush 3 ML SYRINGE IVFLUSH ×3 (08:38→23:18)
[2023-09-26] MEDS: Docusate Sodium 100 MG CAPSULE PO ×2 (08:38→20:05)
[2023-09-26] MEDS: FLUoxetine HCl 20 MG CAPSULE 80 MG PO (08:38)
[2023-09-26] MEDS: amLODIPine Besylate 2.5 MG TABLET PO (08:38)
[2023-09-26] MEDS: ARIPiprazole 5 MG TABLET PO (08:40)
--- NOTE | 2023-09-26 09:10 | PM.PNORT ---
Subjective Subjective Date of Service: 09/26/23 Interval history: POD 8 s/p LT TKA Patient resting comfortably in bed. Denies CP Reports SOB is better No left knee pain or complaints Physical Exam Vital Signs: Vital Signs: Last Vital Signs Temp 97.3 F 09/26/23 07:06 Pulse 77 09/26/23 07:43 Resp 20 09/26/23 07:43 BP 149/68 H 09/26/23 08:38 Pulse Ox 94 09/26/23 07:06 O2 Del Method Nasal Cannula 09/26/23 07:06 O2 Flow Rate 2 09/26/23 07:06 BMI result Body Mass Index 32.4 Const: General: cooperative, healthy appearing and no acute distress Resp: Effort & Inspection: normal respiratory effort and able to speak in complete sentences Cardio: Rate: regular rate Peripheral pulses: Peripheral pulses 2+ throughout GI: Palpation (GI): Soft to palpation Skin: Lesions: no lesions Rashes: no rashes Extrem: Other: Left knee incision cl/d/i. No erythema or effusion, no drainage. Able to perform SLR. Able to dorsi/plantar flex. NVI. Procedures Date of Service Date of Service: 09/26/23 Progress Note: A&P Assessment and plan (1) Bilateral pneumonia: Status: Acute (2) Anemia: Status: Acute (3) Pulmonary embolism: Status: Acute (4) Acute hypoxemic respiratory failure: Status: Acute (5) Pulmonary embolism: Status: Acute (6) Acute exacerbation of chronic obstructive pulmonary disease: Status: Acute (7) Hypoxic respiratory failure: Status: Acute (8) Osteoarthritis of left knee: Status: Acute Assessment and Plan: Continue LTKA rehab protocol ROM Gait training Continued treatment from hospitalists for PE, PNA, COPD f/u with ortho 10/11/23 Time Spent With Patient Time: Total time managing care of this patient today ____ minutes. Quality Stroke Does the patient have a stroke diagnosis?: No VTE Prior VTE?: No VTE Risk Level:: Medical - moderate - high VTE Device Contraindication: Treatment Not Indicated VTE Drug Contraindication: N/A - Med Ordered
[2023-09-26] MEDS: Apixaban 5 MG TABLET 10 MG PO ×2 (11:19→20:05)
--- NOTE | 2023-09-26 15:10 | P.PNIM_ITS ---
Subjective Subjective Date of Service: 09/26/23 Interval History: AHRF,anemia ,pneumonia Review of Systems sob seems improving denies any chest pain or nausea has cough Physical Exam 2 Vital Signs: Vital Signs: Last Vital Signs Temp 97.0 F 09/26/23 11:05 Pulse 87 09/26/23 11:05 Resp 20 09/26/23 11:05 BP 141/65 H 09/26/23 11:05 Pulse Ox 93 09/26/23 13:46 O2 Del Method Nasal Cannula 09/26/23 13:46 O2 Flow Rate 2 09/26/23 13:46 BMI result Body Mass Index 32.4 Appearance: Alert.? Oriented X3. cvs: rrr, [id number] , no murmur res:air entry somewhat diminshed ,has few wheezes abd: no rebound or guarding ,nt, bs present. ext pulses present , no cyanosis. neuro: axo3 , nonfocal. Objective Data Active Medications Acetaminophen (Acetaminophen 325 Mg Tablet) 650 mg PO Q6H PRN PRN Reason: Pain, Mild (Pain Scale 1-3) Albuterol Sulfate (Albuterol Sulfate (0.083%) 2.5 Mg/3 Ml Vial.Neb) 2.5 mg INHALE Q2H PRN PRN Reason: Shortness of Breath/Wheezing Last Admin: 09/25/23 03:56 Dose: 2.5 mg Documented By: DELIMS Albuterol/Ipratropium (Albuterol/Iprat 2.5/0.5mg 3 Ml Ampul.Neb) 3 ml INHALE RQ4H WHILE AWAKE [facility] Last Admin: 09/26/23 11:42 Dose: Not Given Documented By: GER Non-Admin Reason: Patient Refused Amlodipine Besylate (Amlodipine Besylate 2.5 Mg Tablet) 2.5 mg PO DAILY [facility]; Protocol Last Admin: 09/26/23 08:38 Dose: 2.5 mg Documented By: SRAVANTHI Apixaban (Apixaban 5 Mg Tablet) 10 mg PO BID [facility] Stop: 10/02/23 21:01 Last Admin: 09/26/23 11:19 Dose: 10 mg Documented By: SRAVANTHI Aripiprazole (Aripiprazole 5 Mg Tablet) 5 mg PO DAILY [facility] Last Admin: 09/26/23 08:40 Dose: 5 mg Documented By: SRAVANTHI Atorvastatin Calcium (Atorvastatin Calcium 10 Mg Tablet) 10 mg PO BEDTIME [facility] Last Admin: 09/25/23 22:25 Dose: 10 mg Documented By: LORE Calcium Carbonate (Calcium Carbonate 750 Mg Tab.Chew) 750 mg PO Q6H PRN PRN Reason: Heartburn Docusate Sodium (Docusate Sodium 100 Mg Capsule) 100 mg PO BID [facility] Last Admin: 09/26/23 08:38 Dose: 100 mg Documented By: SRAVANTHI Fluoxetine HCl (Fluoxetine Hcl 20 Mg Capsule) 80 mg PO DAILY [facility] Last Admin: 09/26/23 08:38 Dose: 80 mg Documented By: SRAVANTHI Guaifenesin/Codeine Phosphate (Guaifen/Codeine Sf 200/20/10ml 10 Ml Liquid) 10 ml PO Q4H [facility] Last Admin: 09/26/23 13:51 Dose: 10 ml Documented By: SRAVANTHI Azithromycin 500 mg/ Sodium (Chloride) 250 mls @ 125 mls/hr IV Q24H [facility] Last Infusion: 09/26/23 00:37 Dose: Infused Documented By: EDITH Ceftriaxone Sodium 1 gm/ (Sodium Chloride) 100 mls @ 200 mls/hr IV Q24H [facility] Last Infusion: 09/26/23 09:37 Dose: Infused Documented By: SRAVANTHI Magnesium Hydroxide (Milk Of Magnesia 30 Ml Oral.Susp) 30 ml PO DAILY PRN PRN Reason: Constipation Melatonin (Melatonin 3 Mg Tablet) 6 mg PO BEDTIME PRN PRN Reason: Insomnia Methylprednisolone Sodium Succinate (Methylprednisolone Sod Succ 40 Mg/Ml Vial) 40 mg IVPUSH Q12H [facility] Last Admin: 09/26/23 04:02 Dose: 40 mg Documented By: EDITH Oxycodone HCl (Oxycodone Hcl Immed Release 5 Mg Tablet) 5 mg PO Q4H PRN PRN Reason: moderate or severe pain Last Admin: 09/26/23 13:50 Dose: 5 mg Documented By: SRAVANTHI Pantoprazole Sodium (Pantoprazole Sodium 40 Mg/10 Ml Vial) 40 mg IVPUSH DAILY@0630 [facility] Last Admin: 09/26/23 06:04 Dose: 40 mg Documented By: EDITH Polyethylene Glycol (Polyethylene Glycol 3350 17 Gm Powd.Pack) 17 gm PO DAILY PRN PRN Reason: Constipation Sodium Chloride (0.9 % Sodium Chloride Flush 3 Ml Syringe) 3 ml IVFLUSH QSHIFT [facility] Last Admin: 09/26/23 08:38 Dose: 3 ml Documented By: SRAVANTHI Labs 09/25/23 05:55 09/23/23 16:08 Labs: Laboratory Results - last 24 hr 09/26/23 09/26/23 06:08 13:14 aPTT Heparin Protocol 88.9 H D 31.0 L D Assessment and Plan (1) Bilateral pneumonia: Status: Acute Assessment and Plan: 67 years old woman admitted with: AHRF secondary to acute exacerbation of COPD due to bilateral pneumonia and left upper lobe pulmonary embolism. sob seems similar ,but no wheezing continue Telemetry. Pulse oximetry. nebs , Continue empiric IV antibiotic therapy with ceftriaxone and azithromycin,loratidine ,hycodan,heparin IV infusion per protocol. avoid asprin due to anemia /already on iv heparin drip-will swutch to baudilio bernstein h/h. Anemia, acute on chronic. Likely secondary to recent surgery. h/h in range 8.2-s/p 1 prbc -h/h 9.6/28.2 Continue to monitor h/h. Hyperlipidemia. Continue statin. Essential hypertension. Continue amlodipine. Depression. Continue aripiprazole and fluoxetine. Recent s/p left TKA. Pain control with acetaminophen and/or oxycodone. DVT prophylaxis: Heparin IV infusion GI prophylax: PPI. Patient will need hospitalization for acute hypoxic respiratory failure therapy with supplemental oxygen, heparin IV infusion, bronchodilator therapy, IV antibiotics and moniter h/h . Quality Stroke Does the patient have a stroke diagnosis?: No VTE Prior VTE?: No VTE Risk Level:: Medical - moderate - high VTE Device Contraindication: Treatment Not Indicated VTE Drug Contraindication: N/A - Med Ordered
[2023-09-26] MEDS: Omeprazole 20 MG CAPSULE.DR PO (17:34)
[2023-09-26] MEDS: Atorvastatin Calcium 10 MG TABLET PO (20:06)
[2023-09-26] MEDS: Azithromycin 500 MG in 0.9 % Sodium Chloride 250 ML 125 MG IV (23:17)
[2023-09-27] VITALS (10 sets, daily range): BP systolic 111–137; BP diastolic 58–94; PULSE 79–94; RESP 15–18; TEMP 36–36.8; O2SAT 82–97
[2023-09-27] MEDS: guaiFEN/Codeine SF 200/20/10ML 10 ML LIQUID PO ×6 (01:15→20:41)
[2023-09-27] MEDS: oxyCODONE HCl Immed Release 5 MG TABLET PO (05:34)
[2023-09-27] MEDS: Omeprazole 20 MG CAPSULE.DR PO ×2 (05:34→16:58)
--- NOTE | 2023-09-27 05:54 | PC.NURSE ---
Pt AOx4, cooperative, pleasant, able to make needs known. Pt ambulates w/rolling walker to bathroom, 3L O2 nasal cannula when ambulating; 2L O2 when at rest. Pt does report left knee pain between 7-8 at times, requests PRN oxycodne and it is effective per pt. Cough continues, IS bedside. Bed alarm on, call orr within reach, safety maintained throughout shift.
[2023-09-27] MEDS: Albuterol/Iprat 2.5/0.5MG 3 ML AMPUL.NEB INHALE ×3 (07:46→20:19)
[2023-09-27] MEDS: Docusate Sodium 100 MG CAPSULE PO ×2 (08:22→20:41)
[2023-09-27] MEDS: Apixaban 5 MG TABLET 10 MG PO ×2 (08:22→20:41)
[2023-09-27] MEDS: predniSONE 20 MG TABLET 40 MG PO (08:22)
[2023-09-27] MEDS: amLODIPine Besylate 2.5 MG TABLET PO (08:22)
[2023-09-27] MEDS: Loratadine 10 MG TABLET PO (08:22)
[2023-09-27] MEDS: Azithromycin 500 MG TABLET PO (08:22)
[2023-09-27] MEDS: FLUoxetine HCl 20 MG CAPSULE 80 MG PO (08:23)
[2023-09-27] MEDS: 0.9 % Sodium Chloride Flush 3 ML SYRINGE IVFLUSH ×4 (08:23→20:42)
[2023-09-27] MEDS: cefuroxime axetiL 500 MG TABLET PO ×2 (08:29→20:41)
[2023-09-27] MEDS: ARIPiprazole 5 MG TABLET PO (08:29)
[2023-09-27] MEDS: Benzonatate 100 MG CAPSULE PO ×3 (09:10→20:41)
--- NOTE | 2023-09-27 10:45 | MHC.CM.PN ---
EMR REVIEWED, PT W/RECENT TKA NOW W/PE/PNA, PT REMAINS ON SUPPLEMENTAL O2, ANTIC PT WILL REMAIN INPT 1-2 MORE DAYS AND WILL LIKELY TXFR TO S3 TODAY, PT WILL RESUME HVNA ONCE MEDICALLY CLEARED, SM WILL CONT TO FOLLOW DC NEEDS.
[2023-09-27] MEDS: oxyCODONE HCl Immed Release 5 MG TABLET 10 MG PO ×2 (12:05→20:40)
--- NOTE | 2023-09-27 12:56 | P.PNIM_ITS ---
Subjective Subjective Date of Service: 09/27/23 Interval History: AHRF,anemia ,pneumonia Review of Systems sob seems improving denies any chest pain or nausea has cough Physical Exam 2 Vital Signs: Vital Signs: Last Vital Signs Temp 96.9 F 09/27/23 12:25 Pulse 89 09/27/23 12:25 Resp 17 09/27/23 12:25 BP 129/67 09/27/23 12:25 Pulse Ox 95 09/27/23 12:25 O2 Del Method Nasal Cannula 09/27/23 12:25 O2 Flow Rate 2.0 09/27/23 12:25 BMI result Body Mass Index 32.4 Appearance: Alert.? Oriented X3. cvs: rrr, [id number] , no murmur res:air entry somewhat diminshed ,has few wheezes abd: no rebound or guarding ,nt, bs present. ext pulses present , no cyanosis. neuro: axo3 , nonfocal. Objective Data Active Medications Acetaminophen (Acetaminophen 325 Mg Tablet) 650 mg PO Q6H PRN PRN Reason: Pain, Mild (Pain Scale 1-3) Albuterol Sulfate (Albuterol Sulfate (0.083%) 2.5 Mg/3 Ml Vial.Neb) 2.5 mg INHALE Q2H PRN PRN Reason: Shortness of Breath/Wheezing Last Admin: 09/25/23 03:56 Dose: 2.5 mg Documented By: DELMIS Albuterol/Ipratropium (Albuterol/Iprat 2.5/0.5mg 3 Ml Ampul.Neb) 3 ml INHALE RQ4H WHILE AWAKE [facility] Last Admin: 09/27/23 07:46 Dose: 3 ml Documented By: GER Amlodipine Besylate (Amlodipine Besylate 2.5 Mg Tablet) 2.5 mg PO DAILY [facility]; Protocol Last Admin: 09/27/23 08:22 Dose: 2.5 mg Documented By: SRAVANTHI Apixaban (Apixaban 5 Mg Tablet) 10 mg PO BID [facility] Stop: 10/02/23 21:01 Last Admin: 09/27/23 08:22 Dose: 10 mg Documented By: SRAVANTHI Aripiprazole (Aripiprazole 5 Mg Tablet) 5 mg PO DAILY [facility] Last Admin: 09/27/23 08:29 Dose: 5 mg Documented By: SRAVANTHI Atorvastatin Calcium (Atorvastatin Calcium 10 Mg Tablet) 10 mg PO BEDTIME [facility] Last Admin: 09/26/23 20:06 Dose: 10 mg Documented By: MINERVA Azithromycin (Azithromycin 500 Mg Tablet) 500 mg PO Q24H [facility] Last Admin: 09/27/23 08:22 Dose: 500 mg Documented By: SRAVANTHI Benzonatate (Benzonatate 100 Mg Capsule) 100 mg PO TID [facility] Last Admin: 09/27/23 09:10 Dose: 100 mg Documented By: SRAVANTHI Calcium Carbonate (Calcium Carbonate 750 Mg Tab.Chew) 750 mg PO Q6H PRN PRN Reason: Heartburn Cefuroxime Axetil (Cefuroxime Axetil 500 Mg Tablet) 500 mg PO Q12H [facility] Last Admin: 09/27/23 08:29 Dose: 500 mg Documented By: SRAVANTHI Docusate Sodium (Docusate Sodium 100 Mg Capsule) 100 mg PO BID [facility] Last Admin: 09/27/23 08:22 Dose: 100 mg Documented By: SRAVANTHI Fluoxetine HCl (Fluoxetine Hcl 20 Mg Capsule) 80 mg PO DAILY [facility] Last Admin: 09/27/23 08:23 Dose: 80 mg Documented By: SRAVANTHI Guaifenesin/Codeine Phosphate (Guaifen/Codeine Sf 200/20/10ml 10 Ml Liquid) 10 ml PO Q4H [facility] Last Admin: 09/27/23 08:22 Dose: 10 ml Documented By: SRAVANTHI Loratadine (Loratadine 10 Mg Tablet) 10 mg PO DAILY [facility] Last Admin: 09/27/23 08:22 Dose: 10 mg Documented By: SRAVANTHI Magnesium Hydroxide (Milk Of Magnesia 30 Ml Oral.Susp) 30 ml PO DAILY PRN PRN Reason: Constipation Melatonin (Melatonin 3 Mg Tablet) 6 mg PO BEDTIME PRN PRN Reason: Insomnia Omeprazole (Omeprazole 20 Mg Capsule.Dr) 20 mg PO BID@0630,1630 [facility] Last Admin: 09/27/23 05:34 Dose: 20 mg Documented By: MINERVA Oxycodone HCl (Oxycodone Hcl Immed Release 5 Mg Tablet) 10 mg PO Q4H PRN PRN Reason: moderate or severe pain Last Admin: 09/27/23 12:05 Dose: 10 mg Documented By: MAGDA Polyethylene Glycol (Polyethylene Glycol 3350 17 Gm Powd.Pack) 17 gm PO DAILY PRN PRN Reason: Constipation Prednisone (Prednisone 20 Mg Tablet) 40 mg PO DAILY [facility] Last Admin: 09/27/23 08:22 Dose: 40 mg Documented By: SRAVANTHI Sodium Chloride (0.9 % Sodium Chloride Flush 3 Ml Syringe) 3 ml IVFLUSH QSHIFT [facility] Last Admin: 09/27/23 08:23 Dose: 3 ml Documented By: SRAVANTHI Labs 09/25/23 05:55 09/23/23 16:08 Labs: Laboratory Results - last 24 hr 09/26/23 13:14 aPTT Heparin Protocol 31.0 L D Assessment and Plan (1) Bilateral pneumonia: Status: Acute Assessment and Plan: 67 years old woman admitted with: AHRF secondary to acute exacerbation of COPD due to bilateral pneumonia and left upper lobe pulmonary embolism. sob seems similar ,but no wheezing plan: Pulse oximetry. nebs , Continue empiric IV antibiotic therapy with ceftriaxone and azithromycin,loratidine ,hycodan,tesslon,heparin IV infusion per protocol. avoid asprin due to anemia /already on iv heparin drip-will swutch to baudilio bernstein h/h. Anemia, acute on chronic. Likely secondary to recent surgery. h/h in range 8.2-s/p 1 prbc -h/h 9.6/28.2 Continue to monitor h/h. Hyperlipidemia. Continue statin. Essential hypertension. Continue amlodipine. Depression. Continue aripiprazole and fluoxetine. Recent s/p left TKA. Pain control with acetaminophen and/or oxycodone. DVT prophylaxis: Heparin IV infusion GI prophylax: PPI. ongoing hospitalization need for acute hypoxic respiratory failure therapy with supplemental oxygen, heparin IV infusion, bronchodilator therapy, IV antibiotics and moniter h/h . Quality Stroke Does the patient have a stroke diagnosis?: No VTE Prior VTE?: No VTE Risk Level:: Medical - moderate - high VTE Device Contraindication: Treatment Not Indicated VTE Drug Contraindication: N/A - Med Ordered
[2023-09-27] MEDS: Atorvastatin Calcium 10 MG TABLET PO (20:41)
[2023-09-28 03:58] VITALS: BP 129/61; PULSE 91; RESP 16; TEMP 36; O2SAT 96
[2023-09-28] MEDS: Omeprazole 20 MG CAPSULE.DR PO (05:07)
[2023-09-28] MEDS: oxyCODONE HCl Immed Release 5 MG TABLET 10 MG PO ×2 (05:07→10:37)
[2023-09-28] MEDS: guaiFEN/Codeine SF 200/20/10ML 10 ML LIQUID PO ×2 (05:07→08:41)
[2023-09-28 05:47] LABS: Hematocrit 30.6 % (37.0-47.0); Hemoglobin 10.1 g/dl (12.0-16.0); Mean Corpuscular Hemoglobin 31.2 pg (27.0-33.0); Mean Corpuscular Volume 94.4 fL (80.0-98.0); Mean Platelet Volume 9.9 fL (9.4-12.3); Platelet Count 411 X10*3/uL (160-400); Red Blood Count 3.24 X10*6/uL (4.20-5.50); Red Cell Distribution Width 13.3 % (11.0-16.0); White Blood Count 15.3 X10*3/uL (4.8-10.8)
[2023-09-28 07:37] VITALS: BP 118/69; PULSE 92; RESP 16; TEMP 36; O2SAT 98
[2023-09-28] MEDS: Albuterol/Iprat 2.5/0.5MG 3 ML AMPUL.NEB INHALE ×2 (08:08→11:28)
[2023-09-28 08:09] VITALS: PULSE 86; RESP 18; O2SAT 95
[2023-09-28] MEDS: Azithromycin 500 MG TABLET PO (08:41)
[2023-09-28] MEDS: cefuroxime axetiL 500 MG TABLET PO (08:41)
[2023-09-28] MEDS: Docusate Sodium 100 MG CAPSULE PO (08:41)
[2023-09-28] MEDS: ARIPiprazole 5 MG TABLET PO (08:41)
[2023-09-28] MEDS: Benzonatate 100 MG CAPSULE PO (08:41)
[2023-09-28] MEDS: Apixaban 5 MG TABLET 10 MG PO (08:41)
[2023-09-28 08:42] VITALS: BP 118/69
[2023-09-28] MEDS: Loratadine 10 MG TABLET PO (08:42)
[2023-09-28] MEDS: predniSONE 20 MG TABLET 40 MG PO (08:42)
[2023-09-28] MEDS: 0.9 % Sodium Chloride Flush 3 ML SYRINGE IVFLUSH (08:42)
[2023-09-28] MEDS: FLUoxetine HCl 20 MG CAPSULE 80 MG PO (08:42)
[2023-09-28] MEDS: amLODIPine Besylate 2.5 MG TABLET PO (08:42)
[2023-09-28] MEDS: polyethylene glycoL 3350 17 GM POWD.PACK PO (10:38)
[2023-09-28 11:29] VITALS: PULSE 92; RESP 18; O2SAT 94
[2023-09-28 11:30] VITALS: PULSE 110; PULSE 91; PULSE 92; O2SAT 87; O2SAT 88; O2SAT 92; O2SAT 94
--- NOTE | 2023-09-28 11:46 | P.DS_ITS ---
DS: Providers Provider Date of Service: 09/28/23 Date of admission: 09/23/23 22:41 Date of discharge: 09/28/23 Primary care physician: Tio Barroso MD Attending physician on discharge: Maximo Chicas Discharging clinician: Maximo Chicas DS: Diagnosis Discharge Diagnosis (1) Bilateral pneumonia: Status: Acute (2) Anemia: Status: Acute (3) Pulmonary embolism: Status: Acute (4) Acute hypoxemic respiratory failure: Status: Acute (5) Acute exacerbation of chronic obstructive pulmonary disease: Status: Acute (6) Hypoxic respiratory failure: Status: Acute DS: Summary Hospital Course Hospital Course: 67 years old woman with past medical history significant for COPD -no home O2, hyperlipidemia and essential hypertension presents to the emergency department complaining of worsening shortness of the breath over the last several days. She recently (September 17) underwent a left TKA by Dr. Domínguez and has been taking full-dose aspirin for DVT prophylaxis. She also complained associated cough and wheezing. Shortness on breath worse when she tries to speak. She has an ongoing tobacco smoker however has not smoked since surgery. Denied chest pain, abdominal pain, nausea or vomiting. She does have pain to the left knee, 5/10. Denied alcohol abuse or illicit drug use. In the ED, she was found to have mild tachycardia and tachypnea. Initial BP was 96/45, but most recent 1 is 118/59. There is no fever. Blood workup is remarkable for anemia of 8.1 (HH was 10.3 on September 18). There are no significant electrolyte imbalances. Renal function is normal. LFTs are normal except for elevated alk-phos, 155. Troponin is 17.7 and BNP 174. Viral testing for COVID- 19, RSV and influenza is negative. Left lower extremity venous ultrasound showed no DVT. Chest CTA shows single segmental right upper lobe pulmonary embolism without evidence of right heart strain. There also bilateral ground- glass infiltrates. ECG showed NSR without ischemic changes. ED tx: NS 1 L bolus, oxycodone 10 mg p.o., DuoNeb x2, ceftriaxone 1 g IV, heparin IV infusion. Hospital course: Acute hypoxemic respiratory failure secondary tocopd /pneumonia /pulm embolism -leucocytosis,cta showed -Single segmental right upper lobe pulmonary embolus,pneumonia,venous dupplex of LLE -negative -also received AC with eliquis :started on nebs,steriods ,iv antibiotics , oxygen,cough meds ,seems improved significantly with above supportive care-no fever or cough,mild leucocytosis improving (also elevated sec to steriods),going home with po antibiotics : ceftin 500 mg po bid and azithromycin 500 mg po daily for 5 more days ,also need eliquis 10 mg po bid ( until 10/02/23) then switch to eliquis 5 mg po bid. patient qualify for home oxygen - 1liter with resting and 2liter with excersion. anemia : recent s/p Lt Tka: given 1 prbc : h/hstable around 10.30.6, moniter cbc outpatient . in addition follow up with ortho. plan: complete ceftin 500 mg po bid and azithromycin 500 mg po daily for 5 more days,cough medication ,albuterol,loratidine,po prednisone 40 mg po daily x2 days. continue eliquis 10 mg po bid ( until 10/02/23) then switch to eliquis 5 mg po bid. moniter cbc outpatient follow up with chest imaging in 3-4 weeks to see resolution of pneumonia. follow up with pcp, raysa. Above management discussed with the patient in detail lengthwith patient and her -both understand and in agreement with the above plan, time spent 40 minutes and 50% time spent on counseling. Time Attestation Total time managing care of this patient today: 40 mintues. Discharge Coordination Time (in mins): 40 min Quality: Safe Use of Opioids Does Pt have an Active Cancer Diagnosis on the Problem List?: No Quality: Stroke Does the patient have a stroke diagnosis?: No Physical Exam Vital Signs: Vital Signs: Last Vital Signs Temp 96.8 F 09/28/23 07:37 Pulse 92 09/28/23 11:29 Resp 18 09/28/23 11:29 BP 118/69 09/28/23 08:42 Pulse Ox 98 09/28/23 07:37 O2 Del Method Nasal Cannula 09/28/23 07:37 O2 Flow Rate 1 09/28/23 07:37 BMI result Body Mass Index 32.4 Appearance: Alert.? Oriented X3. cvs: rrr, [id number] , no murmur res:air entry fair ,no rales or wheezing. abd: no rebound or guarding ,nt, bs present. ext pulses present , no cyanosis. neuro: axo3 , nonfocal. DS: Data Data Completed and Pending Completed studies during hospitalization [Text1]: Procedures Introduction of Anesthetic Agent into Peripheral Nerves and Plexi, Percutaneous Approach (09/18/23) Replacement of Left Knee Joint with Synthetic Substitute, Uncemented, Open Approach (09/18/23) Replacement of Right Knee Joint with Synthetic Substitute, Uncemented, Open Approach (09/11/22) Labs on day of discharge: Laboratory Results - last 24 hr 09/28/23 05:06 WBC 15.3 H RBC 3.24 L D Hgb 10.1 L Hct 30.6 L MCV 94.4 MCH 31.2 MCHC 33.0 RDW 13.3 Plt Count 411 H D MPV 9.9 Absolute Nucleated RBC 0.000 Nucleated RBC % (auto) 0.0 Imaging Chest x-ray: Radiologist's impression: ITS Impressions Venous Duplex 09/23/23 17:09 IMPRESSION: No DVT demonstrated in the left lower extremity. Chest CTA 09/23/23 18:11 IMPRESSION: 1. Single segmental right upper lobe pulmonary embolus. No evidence of right heart strain 2. Bilateral groundglass infiltrates. VTE: positive. Discharge Plan Discharge Anticipated Discharge Date/Time: 09/28/23 11:09 Patient Disposition: Home Health Service Discharge Diagnosis: pulm embolism, postop anemia ,penumonia/copd excerebation Referrals: Jo GARCIA [Outside] Neha Sanchez PA-C [Physician Senior Core Java Developer] - 1 Week (10/03/23 13:15 [facility] [place] [facility] Neha Sanchez PA-C ) Tio Barroso MD [Primary Care Provider] - 1 Week Discharge Medications: New cefuroxime axetil 500 mg Tablet 500 mg PO Q12H Qty: 8 0RF loratadine 10 mg Tablet 10 mg PO DAILY Qty: 30 0RF azithromycin 500 mg Tablet 500 mg PO Q24H Qty: 4 0RF prednisone 20 mg Tablet 40 mg PO DAILY Qty: 2 0RF benzonatate 100 mg Capsule 100 mg PO TID Qty: 20 0RF omeprazole 20 mg Capsule,Delayed Release(Dr/Ec) 20 mg PO BID@0630,1630 Qty: 30 0RF codeine-guaifenesin 10-200 mg/5 mL liquid 5 ml PO Q6H PRN (Reason: cough) Qty: 200 0RF Eliquis 5 mg Tablet 10 mg PO BID Qty: 90 0RF Rx Instructions: please take 2 tabs(10 mg ) eliquis po bid until 10/02/23,then switch to lolly job 5 mg(1 tab) po bid afterwards(10/03/23). albuterol sulfate 90 mcg/actuation aerosol powdr breath activated 2 inh inhalation QID PRN (Reason: shortness of breath or wheezing) Qty: 10 0RF Continued fluoxetine 40 mg capsule 80 mg PO DAILY aripiprazole 5 mg tablet 5 mg PO DAILY amlodipine 2.5 mg tablet 2.5 mg PO DAILY acetaminophen 325 mg Tablet 650 mg PO Q6H PRN (Reason: Pain, Mild (Pain Scale 1-3)) 30 Days Qty: 240 0RF docusate sodium 100 mg Capsule 100 mg PO BID 30 Days Qty: 60 0RF oxycodone 5 mg Tablet 5 mg PO Q4H PRN (Reason: Pain, Moderate(Pain Scale 4-6)) 7 Days Qty: 42 0RF Rx Instructions: Partial Fill upon patient request. atorvastatin 10 mg Tablet 10 mg PO BEDTIME (DME) walker Misc See Rx Instructions .MEDSUPPLY Qty: 1 0RF Rx Instructions: Folding Front wheeled walker Discontinued aspirin 325 mg Tablet 325 mg PO BID 42 Days Qty: 84 0RF Discharge Orders: Discharge Order (Routine); Ordered 09/28/23 Ordered By: Maximo Chicas Diet: Advance to usual diet Activity on Discharge: As tolerated Stand Alone Forms: Patient Portal Discharge page Print Language: Singaporean Care Plan Goals: Acute hypoxemic respiratory failure secondary tocopd /pneumonia /pulm embolism - cta showed -Single segmental right upper lobe pulmonary embolus,pneumonia -also received AC with eliquis :started on nebs,steriods ,iv antibiotics , oxygen,cough meds ,seems improved significantly with above supportive care-no fever or cough,mild leucocytosis improving (also elevated sec to steriods),going home with po antibiotics : ceftin 500 mg po bid and azithromycin 500 mg po daily for 5 more days ,also need eliquis 10 mg po bid ( until 10/02/23) then switch to eliquis 5 mg po bid. patient qualify for home oxygen - 1liter with resting and 2liter with excersion . anemia : recent s/p Lt Tka: given 1 prbc : h/hstable around 10.30.6, moniter cbc outpatient . in addition follow up with ortho. plan: complete ceftin 500 mg po bid and azithromycin 500 mg po daily for 5 more days,cough medication ,albuterol,loratidine,po prednisone 40 mg po daily x2 days. continue eliquis 10 mg po bid ( until 10/02/23) then switch to eliquis 5 mg po bid. moniter cbc outpatient follow up with chest imaging in 3-4 weeks to see resolution of pneumonia. follow up with pcp, ortho. Health Concerns: as above. Plan of Treatment: Physical Therapy for Total knee arthroplasty: WBAT, gait training, ROM 0-12, quad strength * Limit stair climbing * No showering, no tub bath-keep dressing clean, dry and intact * No driving x6 weeks from DOS * [facility]/02/2412:[facility] Orthopedic SurgeonsNeha Sanchez PA-C Assessment: as above.
--- NOTE | 2023-09-28 12:05 | MHC.CM.PN ---
PT WILL DC HOME TODAY WITH [facility] VIA PRIVATE TRANSPORT
--- NOTE | 2023-09-28 12:55 | W.MHC.F2F ---
Service Date Service Date: 09/28/23 Encounter Date of encounter: 09/28/23 Encounter: COPD, pulmonary embolism, pneumonia, anemia. Reasons for Services Signs and symptoms assessed: Shortness on breath or fever or new complaints. Reason for nursing home: medication management, medication treatment and teach disease management Reason for physical therapy: home safety and mobility, therapeutic exercises, restore joint function, gait/transfer training, assess need for DME, ADL training, energy conservation and other MD Overseeing Care: Tio Barroso Homebound: Leaving the home is medically contraindicated at this time without the asist of a device and/or another person due th the listed conditions above and below. Reason homebound: weakness related to hospital stay Homebound supporting statement: Patient is generalized weak post hospitalization, has multiple comorbidities including COPD, pulmonary embolism,pneumonia, anemia-need help with lab draw, going to appointments, home PT. Certification: Based on the above findings, I certify that this patient is confined to the home and needs intermittent nursing home care, physical therapy and/or speech therapy, or continues to need occupational therapy. The patient is under my care, and I have initiated the establishment of the plan of care. The patient will be followed by a physician who will periodically review the plan of care. Time Spent With Patient Time: Total time managing care of this patient today ____ minutes.
== END 2023-09-28 12:53 | disposition home health service (06) | DRG 175 ==
LOC: HO.ED 16:53 → HO.EDOVER 22:46 → HO.IMC 09-24 01:21 → HO.S3 09-27 11:09
PROVIDERS: Nurse Practitioner Family; Physician Assistant; Admitting Provider Internal Medicine; Emergency Provider Student in an Organized Health Care Education/Training Program; PCP Pediatrics; Visit Provider Internal Medicine
DX: I26.99 Other pulmonary embolism without acute cor pulmonale (principal); J18.9 Pneumonia, unspecified organism; J96.01 Acute respiratory failure with hypoxia; J44.0 Chronic obstructive pulmonary disease with (acute) lower respiratory infection; D62 Acute posthemorrhagic anemia; J44.1 Chronic obstructive pulmonary disease with (acute) exacerbation; F32.A Depression, unspecified; E66.9 Obesity, unspecified; Z68.32 Body mass index [BMI] 32.0-32.9, adult; Z71.3 Dietary counseling and surveillance; Z96.652 Presence of left artificial knee joint; E78.5 Hyperlipidemia, unspecified; Z20.822 Contact with and (suspected) exposure to COVID-19; Z87.891 Personal history of nicotine dependence; Z79.899 Other long term (current) drug therapy
CPT/HCPCS: 0241U; 36415; 71275; 80048; 80076; 83735; 83880; 84484; 85014; 85018; 85025; 85027; 85610; 85730; 86850; 86900; 86901; 86923; 93005; 93971; 94640; 97110; 97116; 97162; 99285; C9113; J0456; J0696; J1644; J2919; P9016; Q9967

== ENCOUNTER → 2023-09-23 15:32 | Outpatient (BNV) | payer MEDICARE, SELFPAY | PROVIDERS: Admitting Provider Internal Medicine; Emergency Provider Student in an Organized Health Care Education/Training Program; PCP Pediatrics; Visit Provider Internal Medicine Cardiovascular Disease | DX: R06.02 Shortness of breath (principal) | CPT/HCPCS: 93010 ==

== ENCOUNTER → 2023-09-23 22:41 | Outpatient (BNV) | payer MEDICARE, SELFPAY | PROVIDERS: Admitting Provider Internal Medicine; Emergency Provider Student in an Organized Health Care Education/Training Program; PCP Pediatrics; Visit Provider Physician Assistant | DX: J18.9 Pneumonia, unspecified organism (principal); D64.9 Anemia, unspecified; I26.99 Other pulmonary embolism without acute cor pulmonale; J96.01 Acute respiratory failure with hypoxia; J44.1 Chronic obstructive pulmonary disease with (acute) exacerbation; M17.12 Unilateral primary osteoarthritis, left knee | CPT/HCPCS: 99024; 99231 ==

== ENCOUNTER → 2023-09-23 22:41 | Outpatient (BNV) | payer MEDICARE, SELFPAY | PROVIDERS: Admitting Provider Internal Medicine; Emergency Provider Student in an Organized Health Care Education/Training Program; PCP Pediatrics; Visit Provider Internal Medicine | DX: J96.01 Acute respiratory failure with hypoxia (principal); J44.1 Chronic obstructive pulmonary disease with (acute) exacerbation; I26.99 Other pulmonary embolism without acute cor pulmonale; D62 Acute posthemorrhagic anemia; J18.9 Pneumonia, unspecified organism | CPT/HCPCS: 99223; 99232; 99239; G0180 ==

== ENCOUNTER 2023-10-03 08:48 | Outpatient (REF) | payer MEDICARE, SELFPAY | END 2023-10-03 08:49 | disposition home or self-care (01) | LOC: HO.HOSX 08:48 | PROVIDERS: Visit Provider Physician Assistant | DX: Z47.1 Aftercare following joint replacement surgery (principal); Z96.652 Presence of left artificial knee joint | CPT/HCPCS: 99212 ==

== ENCOUNTER 2023-10-03 13:06 | Outpatient (AMB) | payer MEDICARE, SELFPAY ==
--- NOTE | 2023-10-03 13:12 | A.OFFVIS_ITS ---
Intake Visit Reasons: PO-LT TKA 09/18/23 NE Intake Note: Patti is a 67 year old female who presents today for a post op appointment s/p LT TKA 09/18/23 NE. Patient reports she is having soreness and pain on her knee. Allergies amoxicillin Allergy (Mild, Verified 10/03/23 13:13) rash Penicillins Allergy (Mild, Verified 10/03/23 13:13) Rash sulfa drugs Allergy (Mild, Uncoded 09/11/23 14:13) rash HPI HPI PO-LT TKA 09/18/23 NE: Details: 67-year-old female who presents in the office today 15 days status post left total knee arthroplasty, which was performed on 09/18/[address] Domínguez. While in the office today the patient reports some soreness and pain in the left knee. [facility] Medical History Smoker HTN (hypertension) Injury of quadriceps muscle Postoperative nausea Personal history of COVID-19 Osteoarthritis of knees, bilateral Depressed High cholesterol Surgical History History of total right knee replacement (09/11/22) History of left hip replacement Hx of colonoscopy S/P bilateral foot surgery Social History Household Members: Spouse and Children Housing: [facility] Are you a primary career development director to a significant other at home: No Do you presently have visiting nurse or other home services: Yes (just had 2 visits with [facility]) 75 years or older and lives alone: No Comment: aware of trip hazard Patient Tobacco Use Status: Former Tobacco user Quit Date: 09/18/2023 Tobacco use type: Cigarette Cigarette Packs Per Day: 1 Cigarettes Per Day: 20.0 Years Smoked: 32 e-Cigarette/Vaping Use: Former Use Second Hand Smoke Exposure: No service: No Current occupational status: retired Current occupation: rt hand Review of Systems Const All systems reviewed & are unremarkable except as noted in HPI and below Physical Exam Const General: cooperative, healthy appearing and no acute distress Resp Effort & Inspection: normal respiratory effort and able to speak in complete sentences Cardio Rate: regular rate Peripheral pulses: Peripheral pulses 2+ throughout GI Palpation (GI): Soft to palpation Skin Lesions: no lesions Rashes: no rashes Extrem Other: Left knee: Incision site is clean, dry, and intact. [place] intact. No surrounding erythema or drainage. No signs of infection. ROM is 0-110 degrees. NVI. Assessment & Plan Assessment & Plan (1) Status post left knee replacement: Onset Date: ~09/18/23 Comment: Dr. Domínguez Code(s): Z96.652 - Presence of left artificial knee joint Category: Surgical Plan Ms. Garcia is a 67-year-old female who presents in the office today 15 days status post left total knee arthroplasty, which was performed on 09/18/[address] Domínguez. While in the office today the patient reports some soreness and pain in the left knee. Angus were removed and steri-stripes were applied. Follow up will be in [address] Domínguez, or sooner if needed. Of note: The patient was hospitalized on 09/23/2023 for COPD exacerbation and left PE. She denies any respiratory difficulties today and is doing well overall. Patient Instructions: Scribed by Apryl Lainez medical assistant secretary, for Neha Sanchez PA-C on 10/03/2023 at 1:09 pm, EST. Coding Level of Care Code Global (86401) Diagnoses Status post left knee replacement Z96.652
== END 2023-10-03 13:28 | disposition home or self-care (01) ==
PROVIDERS: PCP Pediatrics; Visit Provider Physician Assistant
DX: Z96.652 Presence of left artificial knee joint (principal)
CPT/HCPCS: 99024

== ENCOUNTER 2023-10-24 11:06 | Outpatient (AMB) | payer MEDICARE, SELFPAY ==
--- NOTE | 2023-10-24 11:11 | MHC.OFFVIS ---
Intake Visit Reasons: 6 wk PO-LT TKA 09/18/23 NE Intake Note: Patti is a 67 year old female who presents today for a post op appointment s/p LT TKA 09/18/23 NE. Patient reports that she was going down the stairs yesterday when she used the left leg to step down first and felt increased pressure and pain. the leg stiffened up but has since been feeling better. Allergies amoxicillin Allergy (Mild, Verified 10/24/23 11:12) rash Penicillins Allergy (Mild, Verified 10/24/23 11:12) Rash sulfa drugs Allergy (Mild, Uncoded 10/24/23 11:12) rash HPI HPI 6 wk PO-LT TKA 09/18/23 NE: Details: Patti is a 67 year old female who presents today for a post op appointment s/p LT TKA 09/18/23 NE. Patient reports that she was going down the stairs yesterday when she used the left leg to step down first and felt increased pressure and pain. the leg stiffened up but has since been feeling better. Her surgery was complicated by a postoperative pulmonary embolism for which she was hospitalized. She is doing well now on anticoagulants. [facility] Medical History Smoker HTN (hypertension) Injury of quadriceps muscle Postoperative nausea Personal history of COVID-19 Osteoarthritis of knees, bilateral Depressed High cholesterol Surgical History History of total right knee replacement (09/11/22) History of left hip replacement Hx of colonoscopy S/P bilateral foot surgery Social History Household Members: Spouse and Children Housing: Condominium Are you a primary director long term care to a significant other at home: No Do you presently have visiting nurse or other home services: Yes (just had 2 visits with [facility]) 75 years or older and lives alone: No Comment: aware of trip hazard Patient Tobacco Use Status: Former Tobacco user Tobacco use type: Cigarette Cigarette Packs Per Day: 1 Cigarettes Per Day: 20.0 Years Smoked: 32 e-Cigarette/Vaping Use: Former Use Second Hand Smoke Exposure: No service: No Current occupational status: retired Current occupation: rt hand Physical Exam Extrem Other: 3-120 deg stable arc of motion Assessment & Plan Assessment & Plan (1) Status post left knee replacement: Onset Date: ~09/18/23 Comment: Dr. Domínguez Code(s): Z96.652 - Presence of left artificial knee joint Category: Surgical Plan: S/p TKA c/b PE. Stable exam. COnt exercises and activity as tolerated. f/u 6 weeks Coding Level of Care Code Global (12216) Diagnoses Status post left knee replacement Z96.652
== END 2023-10-24 11:35 | disposition home or self-care (01) ==
PROVIDERS: PCP Pediatrics; Visit Provider Orthopaedic Surgery
DX: Z96.652 Presence of left artificial knee joint (principal)
CPT/HCPCS: 99024

== ENCOUNTER → 2023-10-24 11:06 | Outpatient (BNVA) | payer MEDICARE, SELFPAY | PROVIDERS: PCP Pediatrics; Visit Provider Orthopaedic Surgery | DX: Z96.652 Presence of left artificial knee joint (principal) | CPT/HCPCS: 99212 ==

== ENCOUNTER 2023-11-07 11:00 | Outpatient (RCR) | payer MEDICARE, SELFPAY ==
[2023-10-08 11:05] VITALS: BP 122/70; PULSE 101; O2SAT 97
--- NOTE | 2023-10-11 14:44 | MHC.PT.EP ---
[facility] [place] [facility] [place] [facility] [place] [facility] [address] Alexander Dyson [address] [phone] F: [phone] F: [phone] F: [phone] F: [phone] Physical Therapy Plan of Care Date of Evaluation: 10/08/23 Date of Surgery: 09/18/23 Diagnosis: PT eval and treatment: M17.12 Unilateral primary OA, left knee L TKA 09/18/23 with NE Assessment: Pt is a RHD, 67 y/o female, referred to PT from JAYJAY Sanchez with date of referral 09/12/23, s/p L TKA DOS 09/18/23 Dr. Domínguez (was DC home on 09/19/23) Post op course complicated by development of PE/pneumonia, and blood transfusion with second hospital stay 09/23/23- 09/28/23 at [facility]. Pt exhibits AROM -2 to 108 degrees this date, presents to office with use of std cane (reports DC her walker after her last post op appt on 10/03/23. Pt has finished home care. Pt has finished round of antibiotics, has a follow up with her PCP next week (Dr. Barroso). Pt is currently on Eliquis (has been tapered in dosage level since hospital). Pt will benefit from PT twice a week x 6 weeks. Pt exhibits good rehab potential. Pt currently has 12 steri-strips over L knee (no concern for infection noted at this time). Pt has expressed concern for elevated HR at rest (advised to bring to her PCP attention at time of next follow-up, HR 72-101 this date in office). Pt exhibits good rehab potential. PMH significant for history of R TKA with history of fall, quad repair, 2022, depression, HTN, Frequency and Duration: The patient will be seen 2x/ week x 4 weeks Short Term Goals: 1. AROM L knee extension to 0 degrees. 2. AROM L knee flexion to 115 degrees. 3. SLR with good strength on the left knee. 4. Pt will demonstrate sit<>stand on first attempt without UE reliance. [facility]ci Goals: 1. Pt will demonstrate L knee AROM 0 to 120 degrees. 2. Strength L knee 5/5. 3. Community ambulation MOD I with least restrictive AD >500ft. 4. Pt will demonstrate reciprocal stair climbing MOD I. 5. I HEP and self care program. 6. GOod eccentric control for functional transfers. Treatment Plan: Modalities to reduce pain, spasms and effusion. Manual therapy to restore motion and function. Therapeutic exercise to improve strength and flexibility. Neuromuscular re-education for posture and balance. Therapeutic activities to return to functional activities of daily living. Electronically signed by: Please sign and return to therapist. Thank you for your referral.
--- NOTE | 2023-10-21 16:21 | MHC.PT.OD ---
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 Presents without use of std cane. Pain Score and Location: 3-4 Ant. Knee Objective Flowsheet: Tests & Measures 10/21/23 AROM: -1-123 (AAROM w/arm) Extension measured post ice, flexion measured post heel slides Exercises Exegy bike seat 7 level 2 X10 min. -Seated gastroc stretch bilateral 2X30 sec hold -Seated knee bends L X10 reps. -Quad. set L X 15 reps w/ 5 sec hold -SAQ w/ bolster under knee L 2X10 reps -SLR L 2X10 reps. Pt. reminded to let quads relax between reps instead of keeping quad contracted entire duration. -L AROM heel slides, supine w/ slide board X5 reps. ROM measured after (-1-123) Pt inquires on therapist thought of attending dance recital of grand-child which is over 1 hour away back plus sitting for extended recital. Therapist advised may be best for patient to hold off on this for now as she is unable to tolerate prolonged sitting or positioning. Education/self care for HS STM and mm tension posterior knee. Modalities Ice to ant/post knee X6 min. Pt supine w/ towel roll under ankle. Extension measured post ice. Assessment: 10/21/23: Presents without any steri-strips on knee. Incision healing well. Presents without std cane. Has not yet resumed community ambulation at baseline. To see Dr. Domínguez on 10/24/23. Pt. has bottom 4 steri strips remaining. Measured significant increase of knee flexion from 106 degrees to 123 degrees (AAROM w/ arm). Incision appears clean w/ no leakage. Pt reports using STD cane outside of the house. PT Plan: 2x/week x 4 weeks Short Term Goals: 1. AROM L knee extension to 0 degrees. 2. AROM L knee flexion to 115 degrees. 3. SLR with good strength on the left knee. 4. Pt will demonstrate sit<>stand on first attempt without UE reliance. Joinery Setter Out Goals: 1. Pt will demonstrate L knee AROM 0 to 120 degrees. 2. Strength L knee 5/5. 3. Community ambulation MOD I with least restrictive AD >500ft. 4. Pt will demonstrate reciprocal stair climbing MOD I. 5. I HEP and self care program. 6. GOod eccentric control for functional transfers. Electronically signed by: Alfreda Bowen, PT, DPT
== END 2024-03-23 09:28 | disposition home or self-care (01) ==
LOC: HO.PTWFD 11:00
PROVIDERS: PCP Pediatrics; Visit Provider Physician Assistant
DX: M17.12 Unilateral primary osteoarthritis, left knee (principal)
CPT/HCPCS: 97110; 97162; 97535